=== PATIENT | female | born 1960 | race Caucasian/White ===

== ENCOUNTER 2020-08-02 10:06 | Outpatient (REF) | payer OTHER, SELFPAY ==
[2020-08-02 11:55] LABS: Hematocrit 43.1 % (37-47); Hemoglobin 13.8 g/dl (12.0-16.0); Mean Corpuscular Hemoglobin 28.6 pg (27.0-33.0); Mean Corpuscular Volume 89.4 fL (80-98); Platelet Count 263 X10*3/uL (160-400); Red Blood Count 4.82 X10*6/uL (4.20-5.50); Red Cell Distribution Width 11.9 % (11.0-16.0); White Blood Count 6.3 X10*3/uL (4.8-10.8)
[2020-08-02 12:09] LABS: Glucose Urine UA NEG (NEG); Leukocyte Esterase Urine NEG (NEG); Nitrite Urine NEG (NEG); PH 6.5 (5.0-8.0); Urine Blood TRACE (NEG); Urine Ketones NEG (NEG); Urine Protein NEG (NEG-TRACE)
[2020-08-02 12:23] LABS: Alanine Aminotransferase 29 U/L (0-31); Albumin Level 4.3 g/dL (3.5-5.0); Alkaline Phosphatase 74 U/L (39-117); Anion Gap 13 (12-20); Aspartate Amino Transferase 26 U/L (5-31); Bilirubin Total 0.6 mg/dL (0.0-1.0); Blood Urea Nitrogen 15 mg/dL (9-16); C Reactive Protein 0.24 mg/dL (< or = 0.50); Calcium 9.6 mg/dL (8.4-10.2); Carbon Dioxide 28 mmol/L (22-29); Chloride 102 mmol/L (96-108); Cholesterol 243 mg/dL; Estimated Glomerular Filt Rate > 60; Glucose Fasting 101 mg/dL (60-99); HDL Cholesterol 42 mg/dL; LDL Cholesterol Calculated 178 mg/dl; Potassium 4.3 mmol/L (3.3-5.1); Sodium 139 mmol/L (135-145); Total Protein 7.1 g/dL (6.5-8.0); Triglycerides 119 mg/dL
[2020-08-02 12:32] LABS: Appearance Urine CLEAR; Color Urine YELLOW
[2020-08-02 12:34] LABS: TSH reflex Free T4 0.02 uIU/mL (0.32-4.0); Vitamin D 25-OH Total 42.1 ng/mL (>30)
[2020-08-02 12:52] LABS: Folate 12.3 ng/mL (> or = 4.0); Vitamin B12 608 pg/mL (200-900)
[2020-08-02 13:17] LABS: Renal Epithelial Cells Urine 1+ /LPF; WBC Urine 0-2 /HPF (0-4)
[2020-08-02 13:30] LABS: Free T4 (Free Thyroxine) 1.36 ng/dL (0.71-1.85)
== END 2020-08-02 10:07 | disposition home or self-care (01) ==
LOC: HO.HMGCLDS 10:06
PROVIDERS: PCP Internal Medicine; Visit Provider Internal Medicine
DX: K59.00 Constipation, unspecified (principal); M54.2 Cervicalgia; G89.29 Other chronic pain; K21.9 Gastro-esophageal reflux disease without esophagitis; I10 Essential (primary) hypertension; M54.9 Dorsalgia, unspecified
CPT/HCPCS: 36415; 80053; 80061; 81001; 82306; 82607; 82746; 84439; 84443; 85027; 86140

== ENCOUNTER → 2020-12-08 08:24 | Outpatient (BNVA) | payer OTHER, SELFPAY | PROVIDERS: Visit Provider Orthopaedic Surgery | DX: M65.312 Trigger thumb, left thumb (principal); M65.331 Trigger finger, right middle finger | CPT/HCPCS: 20550; 99202; J1100 ==

== ENCOUNTER 2021-02-10 10:20 | Day surgery (SDC) | payer OTHER, SELFPAY ==
[2021-02-10 10:58] VITALS: BP 161/79; PULSE 70; RESP 16; TEMP 36.2; O2SAT 98; BMI 25.2
[2021-02-10 13:07] VITALS: BP 168/78; PULSE 66; RESP 16; TEMP 36.5; O2SAT 96
--- NOTE | 2021-02-10 13:34 | MHC.SHP ---
Pre-Procedural Eval Section A Date of Service: 02/10/21 The patient is an INPATIENT: No Changes since office visit: No Cold of Flu in the past 2 weeks, No New Medical Problems, No Changes in Medication and No Patient answered all questions The History & Physical has been completed within 30 days and I have reviewed it.: Yes Section B Chief Complaint: trigger thumb Allergies: Allergies Allergy/AdvReac Type Severity Reaction Status Date / Time No Known Allergies Allergy Verified 12/08/20 08:39 Plan I have reviewed the history and physical and performed a pertinent physical examination on my patient. No changes have occurred unless specified.
--- NOTE | 2021-02-10 13:34 | W.PM.OPN ---
Operative Note Operative Note Date of Service: 02/10/21 Narrative: Operative Note Preop diagnosis: 1. Left thumb Trigger finger Postop diagnosis: 1. Left thumb Trigger finger Procedure: 1. Left thumb A1 wesley release Surgeon: Claudia Reeves MD Anesthesia: local block using 1% lidocaine with epinephrine Findings: No locking or catching after A1 wesley release EBL: Less than 5 mL Tourniquet time: None Specimens: None Complications: None Disposition: Brought to recovery room in stable condition Plan: Follow-up for 7-10 days for wound check and suture removal Indications: The patient is 60 years old, with a left trigger thumb that has been unresponsive to nonoperative management. The risks and benefits of operative treatment including but not limited to risk of damage to blood vessels, nerves, tendons, infection, persistent pain, persistent symptoms, recurrence or possible need for additional surgery were discussed with the patient and the patient wishes to proceed with surgery. Procedure: Once consent was obtained a local block was performed in the preop area using a combination of 1% lidocaine with epinephrine. The patient was then brought back to the operating suite and placed on the operative table in supine position. A tourniquet was applied to the proximal aspect of the left upper extremity and the limb was prepped and draped in a standard surgical fashion. Once assured that we had a good block, a 1.5 cm oblique incision was made centered over the A1 wesley of the left thumb . The incision was made through the skin to the subcutaneous tissues using a #15 blade. Careful dissection was made down to the level of the A1 wesley using tenotomy scissors, with care being taken to protect the nearby neurovascular structures. A longitudinal incision was made in the A1 wesley 1st using a #15 blade, then using tenotomy scissors under direct visualization. The A1 wesley was noted to be thickened. Following our A1 wesley release, we no longer saw any locking or catching of the digit with flexion and extension. Once satisfied with our A1 wesley release the wound was copiously irrigated with normal saline and hemostasis was obtained with a brief period of local pressure. The skin edges were reapproximated with some 5.0 nylon suture material and a sterile dressing was applied. The patient appears to have tolerated the procedure well and with no complications. All digits were well vascularized at the conclusion of the case.
== END 2021-02-10 13:32 | disposition home or self-care (01) ==
PROVIDERS: PCP Internal Medicine; Visit Provider Orthopaedic Surgery
PROC: (CPT 26055; principal; 2021-02-10 13:00)
DX: M65.312 Trigger thumb, left thumb (principal); I10 Essential (primary) hypertension; M79.643 Pain in unspecified hand
CPT/HCPCS: 26055

== ENCOUNTER 2021-03-03 07:33 | Outpatient (REF) | payer OTHER, SELFPAY ==
[2021-03-03 11:41] LABS: Alanine Aminotransferase 34 U/L (0-31); Albumin Level 4.1 g/dL (3.5-5.0); Alkaline Phosphatase 87 U/L (39-117); Anion Gap 13 (12-20); Aspartate Amino Transferase 28 U/L (5-31); Bilirubin Total 0.7 mg/dL (0.0-1.0); Blood Urea Nitrogen 12 mg/dL (9-16); Calcium 9.4 mg/dL (8.4-10.2); Carbon Dioxide 25 mmol/L (22-29); Chloride 105 mmol/L (96-108); Cholesterol 255 mg/dL; Estimated Glomerular Filt Rate > 60; Glucose Fasting 93 mg/dL (60-99); HDL Cholesterol 43 mg/dL; LDL Cholesterol Calculated 187 mg/dl; Potassium 4.2 mmol/L (3.3-5.1); Sodium 139 mmol/L (135-145); Total Protein 6.8 g/dL (6.5-8.0); Triglycerides 126 mg/dL
[2021-03-03 12:06] LABS: TSH reflex Free T4 1.91 uIU/mL (0.32-4.0)
[2021-03-06 04:06] LABS: Triiodothyronine T3 Free 2.8 pg/mL (2.3-4.2)
== END 2021-03-03 07:34 | disposition home or self-care (01) ==
LOC: HO.HMGCLDS 07:33
PROVIDERS: PCP Internal Medicine; Visit Provider Internal Medicine
DX: E78.5 Hyperlipidemia, unspecified (principal); E05.90 Thyrotoxicosis, unspecified without thyrotoxic crisis or storm; I10 Essential (primary) hypertension
CPT/HCPCS: 36415; 80053; 80061; 84443; 84481

== ENCOUNTER → 2021-03-09 08:13 | Outpatient (REF) | payer OTHER, SELFPAY ==
--- NOTE | 2021-03-09 08:16 | CA_ITS ---
Acquisition Time: 2021-03-09 08:20:25 Total Exercise Time: 00:06:49 Test Indications: Chest Pain Medications: SEE CHART Protocol: RAVINDER Max HR: 153 BPM 96% of Pred: 158 BPM Max BP: 158/078 mmHG Max Work Load: 8.2 METS Exercise stress test with exercise 6 min 49 sec of Ravinder protocol, with report of 5/10 left lateral chest discomfort at baseline which increased to 6-7/10 with exercise, with development of 5/10 mid chest discomfort with exercise that is worse with deep inspiration, without arrythmia, with normotensive response to exercise, without EKG changes meeting criteria for ischemia. In recovery she had improvement in both types of chest discomfort. Left lateral discomfort improved to 3/10. Kazakh bar host used during test. Test reviewed with Dr Malone Msg sent to Dr Olivas with recommendation for stress echo if still concern for ischemia. Referred By: Yeimi Olivas Overread By: JUAN M WAGGONER
== END ==
LOC: HO.CARD 08:13
PROVIDERS: PCP Internal Medicine; Visit Provider Internal Medicine
DX: R07.9 Chest pain, unspecified (principal); E78.5 Hyperlipidemia, unspecified; E05.90 Thyrotoxicosis, unspecified without thyrotoxic crisis or storm
CPT/HCPCS: 93017

== ENCOUNTER 2021-08-17 11:21 | Outpatient (REF) | payer OTHER, SELFPAY ==
--- NOTE | ~2021-08-17 | US_ITS ---
EXAMINATION: US THYROID CLINICAL INFORMATION: Thyrotoxicosis, unspecified without thyrotoxic crisis or storm. COMPARISON: None TECHNIQUE: Linear transducer grayscale and color Doppler examination with attention to the region of the thyroid. FINDINGS: SIZE: Measurements of the thyroid lobes and nodules are given in sagittal, anteroposterior and transverse dimensions respectively. Right Thyroid Lobe: 6.0 x 1.8 x 1.5 cm, volume 8.5 mL. Parenchyma: The gland echotexture is homogeneous. Thyroid vascularity is normal. Left Thyroid Lobe: 6.0 x 1.5 x 1.6 cm, volume 7.5 mL. Parenchyma: The gland echotexture is homogeneous. Thyroid vascularity is normal. Isthmus: 0.5 cm in maximum AP dimension. No focal thyroid nodule is seen. NODES: No lymphadenopathy is seen in the tissue surrounding the thyroid gland. US/US thyroid IMPRESSION: No thyroid nodules identified. Normal-appearing thyroid gland without enlargement, heterogeneity, or hypervascularity.
--- NOTE | ~2021-08-17 | US_ITS ---
EXAMINATION: US ABDOMEN COMPLETE CLINICAL INFORMATION: Abdominal pain. Rule out nephrolithiasis. COMPARISON: None TECHNIQUE: Real-time imaging of the abdominal viscera. FINDINGS: PANCREAS: Normal. ABDOMINAL AORTA: The proximal, mid, and distal segments are normal in caliber. INFERIOR VENA CAVA: Visualized portions are normal. LIVER: Liver echotexture is slightly increased. The liver is normal in size. The liver contour is normal. . No focal hepatic lesion. There is no intrahepatic biliary duct dilatation seen. GALLBLADDER: Normal. The gallbladder is physiologically distended without evidence of stones, sludge, polyps, wall thickening or pericholecystic fluid. COMMON BILE DUCT: Normal in caliber measuring 0.5 cm in diameter. RIGHT KIDNEY: Normal. No hydronephrosis. No renal calculi or focal parenchymal lesions. The kidney measures 10.2 cm in maximum dimension. LEFT KIDNEY: Normal. No hydronephrosis. No renal calculi or focal parenchymal lesions. The kidney measures 9.6 cm in maximum dimension. SPLEEN: Normal. The spleen measures 7.0 cm in maximum dimension. FREE FLUID: None. US/US abdomen complete IMPRESSION: Slightly echogenic liver probably representing mild fatty infiltration. Normal-appearing kidneys. No renal stone seen.
== END 2021-08-17 11:22 | disposition home or self-care (01) ==
LOC: HO.HMGCX 11:21
PROVIDERS: Visit Provider Internal Medicine
DX: E05.90 Thyrotoxicosis, unspecified without thyrotoxic crisis or storm (principal); R10.9 Unspecified abdominal pain; E78.5 Hyperlipidemia, unspecified
CPT/HCPCS: 76536; 76700

== ENCOUNTER 2021-08-18 08:35 | Outpatient (REF) | payer OTHER, SELFPAY ==
[2021-08-18 11:28] LABS: Hematocrit 41.1 % (37.0-47.0); Hemoglobin 13.4 g/dl (12.0-16.0); Mean Corpuscular HGB Conc 32.6 g/dl (31.0-35.0); Mean Corpuscular Hemoglobin 29.1 pg (27.0-33.0); Mean Corpuscular Volume 89.3 fL (80.0-98.0); Mean Platelet Volume 10.1 fL (9.4-12.3); Platelet Count 257 X10*3/uL (160-400); Red Cell Distribution Width 12.5 % (11.0-16.0); White Blood Count 6.1 X10*3/uL (4.8-10.8)
[2021-08-18 11:42] LABS: Alanine Aminotransferase 34 U/L (0-31); Alkaline Phosphatase 82 U/L (39-117); Anion Gap 12 (12-20); Aspartate Amino Transferase 29 U/L (5-31); Bilirubin Total 0.8 mg/dL (0.0-1.0); Blood Urea Nitrogen 14 mg/dL (9-16); Calcium 9.3 mg/dL (8.4-10.2); Carbon Dioxide 26 mmol/L (22-29); Chloride 104 mmol/L (96-108); Cholesterol 249 mg/dL; Estimated Glomerular Filt Rate > 60; Glucose Fasting 93 mg/dL (60-99); HDL Cholesterol 48 mg/dL; LDL Cholesterol Calculated 177 mg/dl; Potassium 4.4 mmol/L (3.3-5.1); Sodium 138 mmol/L (135-145); Total Protein 6.8 g/dL (6.5-8.0); Triglycerides 122 mg/dL
[2021-08-18 12:01] LABS: Estimated Average Glucose 126 mg/dL; Hemoglobin A1C 157.0973 umol/L
[2021-08-18 12:10] LABS: Erythrocyte Sedimentation Rate 11 MM/HR (0-20)
== END 2021-08-18 08:36 | disposition home or self-care (01) ==
LOC: HO.HMGCLDS 08:35
PROVIDERS: Visit Provider Internal Medicine
DX: E05.90 Thyrotoxicosis, unspecified without thyrotoxic crisis or storm (principal); E78.5 Hyperlipidemia, unspecified; I10 Essential (primary) hypertension; M79.10 Myalgia, unspecified site
CPT/HCPCS: 36415; 80053; 80061; 83036; 85027; 85652

== ENCOUNTER 2022-04-25 07:57 | Outpatient (REF) | payer OTHER, SELFPAY ==
[2022-04-25 11:41] LABS: Appearance Urine Cloudy; Color Urine Yellow; Glucose Urine UA Negative (Negative); Leukocyte Esterase Urine Moderate (2+) (Negative); Nitrite Urine Negative (Negative); UMIC TRIGGER UA YES; Urine Blood Trace (Negative); Urine Ketones Negative (Negative); Urine Protein Negative (Neg-Trace)
[2022-04-25 11:48] LABS: Bacteria Urine 4+ (None Seen); Hyaline Casts Urine 0-2 /LPF (0-2); RBC Urine 0-2 /HPF (0-2); Squamous Epithelial Cell Urine 0-2 /HPF (0-2); WBC Urine 21-50 /HPF (0-5)
[2022-04-25 11:51] LABS: MANUAL DIFF FLAG NO
[2022-04-25 11:56] LABS: Basophils Absolute Auto 0.1 X10*3/uL (0.0-0.2); Basophils Percent Auto 0.7 % (0-2); Eosinophils Absolute Auto 0.7 X10*3/uL (0.0-0.4); Eosinophils Percent Auto 8.9 % (0-4); Hematocrit 41.7 % (37.0-47.0); Hemoglobin 13.8 g/dl (12.0-16.0); Imm Gran Abs Auto 0.01 X10*3/uL (0.00-0.03); Imm Gran Pct Auto 0.1 % (0.0-0.4); Lymphocytes Percent Auto 39.1 % (20-40); Mean Corpuscular HGB Conc 33.1 g/dl (31.0-35.0); Mean Corpuscular Hemoglobin 29.1 pg (27.0-33.0); Mean Corpuscular Volume 87.8 fL (80.0-98.0); Mean Platelet Volume 9.9 fL (9.4-12.3); Monocytes Absolute Auto 0.7 X10*3/uL (0.1-1.2); Monocytes Percent Auto 9.7 % (2-11); Neutrophils Absolute Auto 3.1 x10*3/uL (2.0-8.3); Neutrophils Percent Auto 41.5 % (45-73); Platelet Count 272 X10*3/uL (160-400); Red Blood Count 4.75 X10*6/uL (4.20-5.50); Red Cell Distribution Width 12.1 % (11.0-16.0); White Blood Count 7.5 X10*3/uL (4.8-10.8)
[2022-04-25 12:29] LABS: Alanine Aminotransferase 25 U/L (0-31); Albumin Level 4.2 g/dL (3.5-5.0); Alkaline Phosphatase 74 U/L (39-117); Anion Gap 13 (12-20); Aspartate Amino Transferase 26 U/L (5-31); Bilirubin Total 0.6 mg/dL (0.0-1.0); Blood Urea Nitrogen 9 mg/dL (9-16); Calcium 9.3 mg/dL (8.4-10.2); Carbon Dioxide 28 mmol/L (22-29); Chloride 101 mmol/L (96-108); Cholesterol 270 mg/dL; Estimated Glomerular Filt Rate > 60; Glucose Fasting 99 mg/dL (60-99); HDL Cholesterol 53 mg/dL; LDL Cholesterol Calculated 201 mg/dl; Potassium 3.9 mmol/L (3.3-5.1); Sodium 138 mmol/L (135-145); Total Protein 7.1 g/dL (6.5-8.0); Triglycerides 83 mg/dL
[2022-04-25 13:38] LABS: TSH reflex Free T4 2.13 uIU/mL (0.32-4.0); Vitamin D 25-OH Total 42.5 ng/mL (>30)
== END 2022-04-25 07:58 | disposition home or self-care (01) ==
LOC: HO.HMGCLDS 07:57
PROVIDERS: PCP Internal Medicine; Visit Provider Internal Medicine
DX: Z00.00 Encounter for general adult medical examination without abnormal findings (principal); I10 Essential (primary) hypertension; E05.90 Thyrotoxicosis, unspecified without thyrotoxic crisis or storm; E78.5 Hyperlipidemia, unspecified
CPT/HCPCS: 36415; 80053; 80061; 81001; 82306; 84443; 85025; 87086; 87088; 87186

== ENCOUNTER 2022-04-26 14:53 | Outpatient (REF) | payer OTHER, SELFPAY ==
--- NOTE | ~2022-04-26 | US_ITS ---
EXAMINATION: US EXTRACRANIAL CAROTID DUPLEX, BILATERAL CLINICAL INFORMATION: TIA. COMPARISON: None TECHNIQUE: Real-time ultrasound and Doppler techniques (integrating B-mode 2-D vascular images, Doppler spectral analysis and color-flow Doppler imaging) were utilized to interrogate the extracranial carotid arteries, the vertebral arteries and proximal subclavian arteries bilaterally. The degree of stenosis is determined by criteria similar to NASCET. FINDINGS: Minimal to mild echogenic atherosclerotic plaque in the carotid bulb bilaterally. Color Doppler interrogation demonstrated normal arterial waveforms with brisk systolic upstrokes. No tardus parvus waveform was identified. Arterial velocities were as follows in cm/s: RIGHT: Proximal CCA: 85 Distal CCA: 97 Proximal ICA: 66 Mid ICA: 63 Distal ICA: 110 ECA: 91 LEFT: Proximal CCA: 118 Distal CCA: 103 Proximal ICA: 51 Mid ICA: 89 Distal ICA: 80 ECA: 86 The vertebral arteries demonstrated normal arterial waveforms and direction of flow. US/US carotid duplex BI IMPRESSION: No hemodynamically significant arterial stenosis bilaterally.
== END 2022-04-26 14:54 | disposition home or self-care (01) ==
LOC: HO.US 14:53
PROVIDERS: PCP Internal Medicine; Visit Provider Internal Medicine
DX: G45.9 Transient cerebral ischemic attack, unspecified (principal)
CPT/HCPCS: 93880

== ENCOUNTER 2022-05-01 11:25 | Outpatient (REF) | payer OTHER, SELFPAY ==
--- NOTE | ~2022-05-01 | XR_ITS ---
EXAMINATION: XR CERVICAL SPINE CLINICAL INFORMATION: Neck pain. COMPARISON: None TECHNIQUE: 3 views of the cervical spine were obtained. FINDINGS: There is maintained cervical lordosis. There is loss of C5-C6, C6-C7 disc heights with mild ventral spondylosis. Rest of the disc heights are normal. No acute compression fracture, lytic or sclerotic process seen. There is moderate right C3-C4 facet joint arthropathy and hypertrophy. The prevertebral soft tissues are normal. XR/XR cervical spine 2V IMPRESSION: Degenerative disc changes C5-C6 and C6-C7 disc levels with mild ventral spondylosis. No visible acute fracture or dislocation seen. Moderate right C3-C4 facet joint arthropathy and hypertrophy.
== END 2022-05-01 11:26 | disposition home or self-care (01) ==
LOC: HO.HMGCX 11:25
PROVIDERS: PCP Internal Medicine; Visit Provider Internal Medicine
DX: M54.2 Cervicalgia (principal)
CPT/HCPCS: 72040

== ENCOUNTER 2022-05-05 08:03 | Outpatient (REF) | payer OTHER, SELFPAY ==
--- NOTE | ~2022-05-05 | CT_ITS ---
EXAMINATION: CT HEAD WITHOUT CONTRAST CLINICAL INFORMATION: Transient cerebral ischemic attack. COMPARISON: None available. TECHNIQUE: Contiguous axial imaging was performed from the skull base to vertex without intravenous administration of contrast. This CT examination was performed using dose optimization techniques as appropriate, variously including the following: *Automated exposure control. *Adjustment of mA and/or kV according to patient size (this includes techniques or standardized protocols for targeted exams where dose is matched to indication/reason for exam; i.e. extremities or head). *Use of iterative reconstruction technique. DLP: 715 mGy-cm FINDINGS: There is no evidence of acute intracranial hemorrhage or edematous territorial infarction. Gerard-white matter differentiation is preserved. A few foci of hypoattenuation in the periventricular and deep white matter are consistent with mild microangiopathy. The ventricles are normal in morphology and size. No evidence for obstructive hydrocephalus. No abnormal mass effect or midline shift. No extra-axial fluid collections. No acute soft tissue or osseous abnormalities. Moderate degenerative arthropathy of the atlantodental articulation. Mild mucosal thickening of the paranasal sinuses. Moderate rightward nasal septal deviation. Periapical lucencies associated with the maxillary right canine and left 1st molar. The mastoid air cells and middle ear cavities are clear. CT/CT head/brain wo IV con IMPRESSION: 1. No evidence of acute intracranial hemorrhage or edematous territorial infarction. 2. Mild underlying microangiopathy.
== END 2022-05-05 08:04 | disposition home or self-care (01) ==
LOC: HO.CT 08:03
PROVIDERS: Visit Provider Internal Medicine
DX: Z86.73 Personal history of transient ischemic attack (TIA), and cerebral infarction without residual deficits (principal)
CPT/HCPCS: 70450

== ENCOUNTER 2022-05-16 08:27 | Outpatient (REF) | payer OTHER, SELFPAY ==
[2022-05-16 11:30] LABS: Appearance Urine Clear; Color Urine Yellow; Glucose Urine UA Negative (Negative); Leukocyte Esterase Urine Trace (Negative); Nitrite Urine Negative (Negative); PH 5.5 (5.0-9.0); UMIC TRIGGER UA YES; Urine Blood Negative (Negative); Urine Ketones Negative (Negative); Urine Protein Negative (Neg-Trace)
[2022-05-16 11:37] LABS: Bacteria Urine None Seen (None Seen); Hyaline Casts Urine 0-2 /LPF (0-2); RBC Urine 0-2 /HPF (0-2); Squamous Epithelial Cell Urine 0-2 /HPF (0-2); WBC Urine 0-5 /HPF (0-5)
== END 2022-05-16 08:28 | disposition home or self-care (01) ==
LOC: HO.HMGCLDS 08:27
PROVIDERS: PCP Internal Medicine; Visit Provider Internal Medicine
DX: R31.9 Hematuria, unspecified (principal)
CPT/HCPCS: 81001

== ENCOUNTER 2022-09-08 13:23 | Outpatient (REF) | payer OTHER, SELFPAY ==
[2022-09-08 14:15] LABS: MANUAL DIFF FLAG NO
[2022-09-08 14:21] LABS: Basophils Absolute Auto 0.1 X10*3/uL (0.0-0.2); Basophils Percent Auto 0.7 % (0-2); Eosinophils Absolute Auto 0.5 X10*3/uL (0.0-0.4); Eosinophils Percent Auto 7.4 % (0-4); Hematocrit 40.7 % (37.0-47.0); Hemoglobin 13.6 g/dl (12.0-16.0); Imm Gran Abs Auto 0.01 X10*3/uL (0.00-0.03); Imm Gran Pct Auto 0.1 % (0.0-0.4); Lymphocytes Absolute Auto 3.3 X10*3/uL (1.2-4.9); Mean Corpuscular HGB Conc 33.4 g/dl (31.0-35.0); Mean Corpuscular Hemoglobin 29.2 pg (27.0-33.0); Mean Corpuscular Volume 87.5 fL (80.0-98.0); Mean Platelet Volume 9.6 fL (9.4-12.3); Monocytes Absolute Auto 0.5 X10*3/uL (0.1-1.2); Monocytes Percent Auto 6.7 % (2-11); Neutrophils Absolute Auto 2.8 x10*3/uL (2.0-8.3); Neutrophils Percent Auto 39.1 % (45-73); Platelet Count 261 X10*3/uL (160-400); Red Blood Count 4.65 X10*6/uL (4.20-5.50); Red Cell Distribution Width 11.9 % (11.0-16.0); White Blood Count 7.2 X10*3/uL (4.8-10.8)
[2022-09-08 14:54] LABS: Alanine Aminotransferase 20 U/L (0-31); Albumin Level 4.1 g/dL (3.5-5.0); Alkaline Phosphatase 71 U/L (39-117); Anion Gap 11 (12-20); Aspartate Amino Transferase 16 U/L (5-31); Bilirubin Total 0.5 mg/dL (0.0-1.0); Blood Urea Nitrogen 11 mg/dL (9-16); C Reactive Protein 0.19 mg/dL (< or = 0.50); Calcium 9.2 mg/dL (8.4-10.2); Carbon Dioxide 27 mmol/L (22-29); Chloride 102 mmol/L (96-108); Estimated Glomerular Filt Rate > 60; Glucose Random 89 mg/dL (60-115); Sodium 136 mmol/L (135-145); Total Protein 6.8 g/dL (6.5-8.0)
== END 2022-09-08 13:24 | disposition home or self-care (01) ==
LOC: HO.HMGCLDS 13:23
PROVIDERS: PCP Internal Medicine; Visit Provider Internal Medicine
DX: R10.9 Unspecified abdominal pain (principal)
CPT/HCPCS: 36415; 80053; 85025; 86140

== ENCOUNTER → 2022-10-16 09:18 | Outpatient (BNVA) | payer OTHER, SELFPAY | PROVIDERS: PCP Internal Medicine; Visit Provider Nurse Practitioner Family | DX: Z12.11 Encounter for screening for malignant neoplasm of colon (principal); K21.9 Gastro-esophageal reflux disease without esophagitis | CPT/HCPCS: 99202 ==

== ENCOUNTER 2022-10-18 10:44 | Outpatient (REF) | payer OTHER, SELFPAY | END 2022-10-18 10:45 | disposition home or self-care (01) | LOC: HO.HMGCLNP 10:44 | PROVIDERS: PCP Internal Medicine; Visit Provider Nurse Practitioner Family | DX: K21.9 Gastro-esophageal reflux disease without esophagitis (principal) | CPT/HCPCS: 87338 ==

== ENCOUNTER 2022-10-30 11:19 | Outpatient (REF) | payer OTHER, SELFPAY ==
--- NOTE | ~2022-10-30 | US_ITS ---
EXAMINATION: US THYROID CLINICAL INFORMATION: Nontoxic goiter, unspecified. COMPARISON: Ultrasound soft tissue head/neck thyroid dated 08/17/2021. TECHNIQUE: Linear transducer grayscale and color Doppler examination with attention to the region of the thyroid. FINDINGS: SIZE: Measurements of the thyroid lobes and nodules are given in sagittal, anteroposterior and transverse dimensions respectively. Right Thyroid Lobe: 4.6 x 1.7 x 1.6 cm, volume 6.5 mL. Previously 6.0 x 1.8 x 1.5 cm, volume 8.5 mL. Parenchyma: The gland echotexture is homogeneous. Thyroid vascularity is normal. Left Thyroid Lobe: 5.5 x 1.9 x 1.6 cm, volume 8.7 mL. Previously 6.0 x 1.5 x 1.6 cm, volume 7.5 mL. Parenchyma: The gland echotexture is homogeneous. Thyroid vascularity is normal. Isthmus: 0.5 cm in maximum AP dimension. Previously 0.5 cm. No focal thyroid nodule is seen. NODES: No lymphadenopathy is seen in the tissue surrounding the thyroid gland. US/US thyroid IMPRESSION: Normal thyroid gland size with no focal nodules seen. No major change compared to previous study 08/14/2021 ACR TI-RADS RECOMMENDATION REFERENCE: Ultrasound-guided fine-needle aspiration, followup ultrasound, no further follow up. * TR1 (0 point) and TR2 (2 points): No FNA or follow up * TR3 (3 points): FNA if more than or equal to 2.5 cm in maximum dimension, followup ultrasound in 1, 3 and 5 years if 1.5 to 2.4 cm in maximum dimension. * TR4 (4-6 points): FNA if more than or equal to 1.5 cm in maximum dimension, followup ultrasound in 1, 2, 3 and 5 years if 1 to 1.4 cm in maximum dimension. * TR5 (more than or equal to 7 points): FNA if more than or equal to 1 cm in maximum dimension, followup ultrasound every year for 5 years if 0.5 to 0.9 cm in maximum dimension. * TR3, TR4 or TR5 nodules that are below the size threshold for follow up receive no follow up.
== END 2022-10-30 11:20 | disposition home or self-care (01) ==
LOC: HO.US 11:19
PROVIDERS: PCP Internal Medicine; Visit Provider Internal Medicine
DX: E04.9 Nontoxic goiter, unspecified (principal)
CPT/HCPCS: 76536

== ENCOUNTER 2023-02-08 08:29 | Outpatient (AMB) | payer OTHER, SELFPAY ==
[2023-02-08 08:32] VITALS: BP 136/78; PULSE 75; O2SAT 98; BMI 24.9
--- NOTE | 2023-02-08 08:32 | A.OFFPC_ITS ---
Vital Signs 02/08/23 08:32 Height 5 ft 2 in Weight 136 lb BMI 24.9 BP 136/78 Blood Pressure Location Lt brachial Position Sitting Pulse 75 Pulse Source Pulse Oximeter Pulse Oximetry (%) 98 Oxygen Delivery Method Room Air Intake Visit Reasons: Follow up after abnormal thyroid blood test Allergies No Known Allergies Allergy (Verified 02/08/23 08:32) Tobacco use date assessed: 02/08/23 Fall risk assessment: No Falls in past year Last assessed Fall Risk: 02/08/23 Dental Screening Dental Screen Date: 02/08/23 Did you have a dental visit in the last 12 months?: Yes Did you have a dental problem in the last 6 months where you did not have access to dental care?: No Was dental information given to patient?: Patient has dentist HPI Follow up after abnormal thyroid blood test HPI Details Patient presents for the follow-up. She had a blood work done in [place] last month and was found to have suppressed TSH level and elevated 3 T4 level consistent with hyperthyroidism. Patient complains of pruritus for last few weeks. She denies any rash, palpitations, weight loss, chest pain or shortness of breath. [facility] Medical History Abdominal pain Back pain Chest pain Chronic neck pain Constipation GERD (gastroesophageal reflux disease) Hand pain HTN (hypertension) Hyperlipidemia Mammogram normal Mid-back pain, acute Myalgia Vertigo Surgical History H/O colonoscopy History of esophagogastroduodenoscopy (EGD) No pertinent past surgical history Family History Father Cancer Mother Stroke Sister No problems noted. Sister No problems noted. Son No problems noted. Daughter No problems noted. Social History Housing: Apartment Patient Tobacco Use Status: Never used Tobacco e-Cigarette/Vaping Use: Never Used Current occupational status: unemployed Current occupation: rt hand Cognitive needs: No Hearing needs: No Vision needs: No Questionnaire PHQ-9 Over the last 2 weeks, how often have you been bothered by any of the following problems? 1. Little interest or pleasure in doing things: not at all 2. Feeling down, depressed, or hopeless: not at all 3. Trouble falling or staying asleep, or sleeping too much: not at all 4. Feeling tired or having little energy: not at all 5. Poor appetite or overeating: not at all 6. Feeling bad about yourself - or that you are a failure or have let yourself or your family down: not at all 7. Trouble concentrating on things, such as reading the newspaper or watching television: not at all 8. Moving or speaking so slowly that other people could have noticed. Or the opposite - being so fidgety or restless that you have been moving around a lot more than usual: not at all 9. Thoughts that you would be better off or of hurting yourself in some way: not at all Total score: 0 Depression Screening Interpretation: Negative Source: Developed by Drs. Ilia Reece, Kimberly Almodovar, Mack Hdz and colleagues, with an educational odette from [employer]. Thrive Questionnaire Date Thrive assessed: 02/08/23 I am a: Patient What is your living situation today?: I have a steady place to live Within the past 12 months, did the food you bought not last and you didn't have the money to get more?: Never true Within the past 12 months, did you worry whether your food would run out before you got money to buy more?: Never true Do you have trouble paying for medicines?: No Do you have trouble getting transportation to medical appointments?: No Do you have trouble paying your heating and electricity bill?: No Do you have trouble taking care of your child, family member or friend?: No Do you have trouble with day-to-day activities such as bathing, preparing meals, shopping, managing finances, etc.?: No Are you currently unemployed and looking for a job?: No Are you interested in more education?: No Please select the resources that you would like help with: None Currently or been in a relationship where the following occur: no concerns reported AUDIT C Alcohol Use Questionnaire (AUDIT-C) 1. How often do you have a drink containing alcohol?: Never 3. How often do you have six or more drinks on one occasion?: Never Total Score: 0 SHAWN-7 AMB Questionnaire SHAWN-7 Date SHAWN - 7 assessed: 02/08/23 Feeling nervous, anxious, or on edge: 0 = Not at all Not being able to stop or control worryin = Not at all Worrying too much about different things: 0 = Not at all Trouble relaxin = Not at all Being so restless that it is hard to sit still: 0 = Not at all Becoming easily annoyed or irritable: 0 = Not at all Feeling afraid as if something awful might happen: 0 = Not at all Total SHAWN-7 score (0-4 normal; 5-9 mild; 10-14 moderate; 15-21 severe): 0 Source: Developed by Drs. Ilia Reece, Kimberly Almodovar, Mack Hdz and colleagues, with an educational odette from [employer]. Review of Systems Const All systems reviewed & are unremarkable except as noted in HPI and below Reports no additional complaints Eyes Reports no additional complaints ENT Reports no additional complaints Card Reports no additional complaints Resp Reports no additional complaints GI Reports no additional complaints Reports no additional complaints Physical exam (Primary Care) Vital Signs: Last Vital Signs Pulse 75 02/08/23 08:32 BP 136/78 02/08/23 08:32 Pulse Ox 98 02/08/23 08:32 Oxygen Delivery Method Room Air 02/08/23 08:32 BMI result Body Mass Index 24.9 Tobacco/Smoking Status: Tobacco use Status Tobacco use date assessed 02/08/23 02/08/23 08:36 Patient Tobacco Use Status Never used Tobacco 02/08/23 08:36 e-Cigarette/Vaping Use Never Used 02/08/23 08:36 PHQ-9: PHQ-9 Score PHQ-9: Total score 0 02/08/23 08:42 Depression Screening Interpretation: Negative Thrive Assessment: Date of Thrive Assessment Date Thrive assessed 02/08/23 02/08/23 08:42 Currently or been in a relationship where the following occur: no concerns reported Const General: no acute distress HENMT Head: Yes normal to inspection General nose exam: Normal external nose present Eyes General: appearance normal, both eyes and all related structures Resp Effort & Inspection: normal respiratory effort Auscultation: clear to auscultation bilaterally Cardio Rhythm: regular rhythm Heart sounds: S1 normal heart sound present and S2 normal heart sound present GI Inspection: Yes normal to inspection Palpation (GI): Soft to palpation Percussion: Yes normal to percussion Auscultation: normal bowel sounds Assessment and Plan Assessment & Plan (1) Pruritus: Code(s): L29.9 - Pruritus, unspecified Plan: Check blood work (2) Hyperthyroidism: Code(s): E05.90 - Thyrotoxicosis, unspecified without thyrotoxic crisis or storm Plan: Check thyroid function tests if abnormal patient will be referred to Endocrinology Orders: Orders Comprehensive [place]. Panel Fast Today L29.9 - Pruritus, unspecified Triiodothyronine T3 Free Today L29.9 - Pruritus, unspecified TSH reflex Free T4 Today L29.9 - Pruritus, unspecified Thyroid Peroxidase Antibodies Today L29.9 - Pruritus, unspecified Medications: Discontinued gabapentin Discontinued Reason: Doctor's Order 200 mg (2 x 100 mg) PO BEDTIME 60 caps 1RF losartan Discontinued Reason: Doctor's Order 100 mg PO DAILY 90 tabs 1RF Coding Level of Care Code Est Pt Level 3 (64413) Diagnoses Pruritus L29.9 Hyperthyroidism E05.90
== END 2023-02-08 09:33 | disposition home or self-care (01) ==
PROVIDERS: PCP Internal Medicine; Visit Provider Internal Medicine
DX: L29.9 Pruritus, unspecified (principal); E05.90 Thyrotoxicosis, unspecified without thyrotoxic crisis or storm
CPT/HCPCS: 99213

== ENCOUNTER 2023-02-08 09:01 | Outpatient (REF) | payer OTHER, SELFPAY ==
[2023-02-08 12:00] LABS: Alanine Aminotransferase 92 U/L (0-31); Albumin Level 3.9 g/dL (3.5-5.0); Alkaline Phosphatase 93 U/L (39-117); Anion Gap 12 (12-20); Aspartate Amino Transferase 39 U/L (5-31); Bilirubin Total 0.3 mg/dL (0.0-1.0); Blood Urea Nitrogen 12 mg/dL (9-16); Calcium 9.7 mg/dL (8.4-10.2); Carbon Dioxide 26 mmol/L (22-29); Chloride 106 mmol/L (96-108); Estimated Glomerular Filt Rate > 60; Glucose Fasting 103 mg/dL (60-99); Potassium 4.1 mmol/L (3.3-5.1); Sodium 140 mmol/L (135-145); Total Protein 7.2 g/dL (6.5-8.0)
[2023-02-08 12:20] LABS: TSH reflex Free T4 < 0.01 uIU/mL (0.32-4.0)
[2023-02-08 12:53] LABS: Free T4 (Free Thyroxine) 1.17 ng/dL (0.71-1.85)
[2023-02-09 06:49] LABS: Triiodothyronine T3 Free 4.8 pg/mL (2.3-4.2)
[2023-02-09 12:32] LABS: Thyroid Peroxidase Antibodies 1 IU/mL (<9)
== END 2023-02-08 09:02 | disposition home or self-care (01) ==
LOC: HO.HMGCLDS 09:01
PROVIDERS: PCP Internal Medicine; Visit Provider Internal Medicine
DX: L29.9 Pruritus, unspecified (principal)
CPT/HCPCS: 36415; 80053; 84439; 84443; 84481; 86376

== ENCOUNTER 2023-02-28 10:54 | Outpatient (REF) | payer OTHER, SELFPAY ==
--- NOTE | ~2023-02-28 | US_ITS ---
EXAMINATION: US ABDOMEN COMPLETE CLINICAL INFORMATION: Abdominal pain. Abnormal findings of blood chemistry (elevated LFTs).. COMPARISON: Abdomen ultrasound from 08/17/2021 TECHNIQUE: Real-time imaging of the abdominal viscera. FINDINGS: PANCREAS: Normal. ABDOMINAL AORTA: The proximal, mid, and distal segments are normal in caliber. INFERIOR VENA CAVA: Visualized portions are normal. LIVER: Liver has normal size and contour. Liver remains diffusely hyperechoic, as seen on 08/17/2021. No focal liver lesion or intrahepatic ductal dilatation. GALLBLADDER: Normal. The gallbladder is physiologically distended without evidence of stones, sludge, polyps, wall thickening or pericholecystic fluid. COMMON BILE DUCT: Normal in caliber measuring 0.6 cm in diameter. KIDNEYS: Kidneys have normal size, cortical thickness and cortical echotexture. Each kidney is approximately 9 cm in length. No focal parenchymal lesion, nephrolithiasis or hydronephrosis.. SPLEEN: Normal. The spleen measures 8.7 cm in maximum dimension. FREE FLUID: None. US/US abdomen complete IMPRESSION: * No acute sonographic abnormalities within the abdomen. * No evidence of cholelithiasis, cholecystitis or biliary tract obstruction. * Liver is diffusely hyperechoic, suggestive of steatosis, and not appreciably changed compared to 08/17/2021.
== END 2023-02-28 10:55 | disposition home or self-care (01) ==
LOC: HO.HMGCX 10:54
PROVIDERS: PCP Internal Medicine; Visit Provider Internal Medicine
DX: R79.89 Other specified abnormal findings of blood chemistry (principal); R10.9 Unspecified abdominal pain
CPT/HCPCS: 76700

== ENCOUNTER 2023-03-14 07:30 | Outpatient (REF) | payer OTHER, SELFPAY ==
[2023-03-14 12:02] LABS: Appearance Urine Clear; Color Urine Yellow; Glucose Urine UA Negative (Negative); Leukocyte Esterase Urine Negative (Negative); Nitrite Urine Negative (Negative); PH 5.5 (5.0-9.0); Urine Blood Negative (Negative); Urine Ketones Negative (Negative); Urine Protein Negative (Neg-Trace)
[2023-03-14 12:56] LABS: Alanine Aminotransferase 23 U/L (0-31); Albumin Level 4.2 g/dL (3.5-5.0); Alkaline Phosphatase 73 U/L (39-117); Aspartate Amino Transferase 21 U/L (5-31); Bilirubin Direct 0.2 mg/dL (0.0-0.5); Bilirubin Total 0.6 mg/dL (0.0-1.0); C Reactive Protein 0.24 mg/dL (< or = 0.50); Total Protein 7.2 g/dL (6.5-8.0)
[2023-03-14 13:18] LABS: TSH reflex Free T4 0.03 uIU/mL (0.32-4.0); Vitamin D 25-OH Total 75.9 ng/mL (>30)
[2023-03-14 14:16] LABS: Free T4 (Free Thyroxine) 0.92 ng/dL (0.71-1.85)
[2023-03-15 07:03] LABS: Triiodothyronine T3 Free 3.3 pg/mL (2.3-4.2)
[2023-03-15 08:56] LABS: HBS Num1 8.39 mIU/mL (0-7.99); HBc Num1 0.14 S/CO (0.00-0.79); HBsAGNum1 0.28 S/CO (0.00-0.99); Hepatitis A Antibody IgM 0.13 Index (0-0.79); Hepatitis B Core Antibody Nonreactive (Nonreactive); Hepatitis B Surface Antigen Negative (Negative); ~HepC Num1 0.06 S/CO (0.00-0.79); ~Hepatitis A Antibody IgM Nonreactive (Nonreactive); ~Hepatitis C Antibody Nonreactive (Nonreactive)
[2023-03-15 11:44] LABS: HBS Num2 9.28 mIU/mL (0-7.99); ~Hepatitis B Surface Antibody GRAYZONE (Nonreactive)
== END 2023-03-14 07:31 | disposition home or self-care (01) ==
LOC: HO.HMGCLDS 07:30
PROVIDERS: PCP Internal Medicine; Visit Provider Internal Medicine
DX: E05.90 Thyrotoxicosis, unspecified without thyrotoxic crisis or storm (principal); R79.89 Other specified abnormal findings of blood chemistry; R10.9 Unspecified abdominal pain
CPT/HCPCS: 36415; 80076; 81003; 82306; 84439; 84443; 84481; 86140; 86704; 86706; 86709; 86803; 87340

== ENCOUNTER 2023-03-26 11:19 | Day surgery (SDC) | payer OTHER, SELFPAY ==
--- NOTE | 2023-03-23 14:19 | P.CONAN_ITS ---
Documented by User: Charlotte Mckenzie NP 03/23/23 14:20 HPI - Anesthesia Eval Consult details Narrative: 62yo F for Upper Endoscopy and Colonoscopy [facility] Active Problems Active Problems: All Active Problems (Updated 02/27/23 @ 14:45 by Yeimi Olivas MD) Abdominal pain (Acute) Elevated LFTs (Acute) Hyperthyroidism (Acute) Pruritus (Acute) Oral phase dysphagia (Acute) Sprain of cervical neck (Acute) Hoarseness (Acute) Enlarged thyroid (Acute) Colon polyps (Acute) Sciatica (Acute) Postnasal discharge (Acute) Left leg numbness (Acute) Positional vertigo (Acute) Neck pain (Acute) TIA (transient ischemic attack) (Acute) Hematuria (Acute) Annual physical exam (Acute) Abdominal pain (Acute) Myalgia (Acute) Chest pain (Acute) Hyperlipidemia (Acute) Trigger finger, right middle finger (Acute) Trigger finger of left thumb (Acute) Hand pain (Acute) Back pain (Acute) Mammogram normal (Acute) Constipation (Acute) Chronic neck pain (Acute) GERD (gastroesophageal reflux disease) (Acute) HTN (hypertension) (Acute) Vertigo (Acute) Past Medical History Medical History Abdominal pain Back pain Chest pain Chronic neck pain Constipation GERD (gastroesophageal reflux disease) Hand pain HTN (hypertension) Hyperlipidemia Mammogram normal Mid-back pain, acute Myalgia Vertigo Family History Family History Father Cancer Mother Stroke Sister No problems noted. Sister No problems noted. Son No problems noted. Daughter No problems noted. Surgical History Surgical History H/O colonoscopy History of esophagogastroduodenoscopy (EGD) No pertinent past surgical history Social History Social History Housing: Apartment Patient Tobacco Use Status: Never used Tobacco e-Cigarette/Vaping Use: Never Used Are you DNR?: No Advance Directives: No Advance Directives Information Provided: Yes Recently lost weight without trying: No Nutrition Risks: No Nutritional Risk Current occupational status: unemployed Current occupation: rt hand Cognitive needs: No Hearing needs: No Vision needs: No Meds Allergies Allergy/AdvReac Type Severity Reaction Status Date / Time No Known Allergies Allergy Verified 02/08/23 08:32 Home Medications Medication Instructions Recorded Confirmed Last Taken Type losartan 100 mg tablet 100 mg PO DAILY 03/26/23 03/26/23 03/26/23 History Exam Exam Date and Time: March 23, 2023 1419 Pertinent Lab Results Pertinent Lab Results: Laboratory Tests 09/08/22 02/08/23 13:31 09:08 WBC 7.2 Hgb 13.6 Hct 40.7 Plt Count 261 Sodium 140 Potassium 4.1 Chloride 106 Carbon Dioxide 26 BUN 12 Creatinine 0.75 Assessment and Plan Assessment Anesthesia Assessment: Chart Reviewed Documented by User: Gayla Vargas MD 03/26/23 12:22 [facility] Past Medical History Medical History Abdominal pain Back pain Chest pain Chronic neck pain Constipation GERD (gastroesophageal reflux disease) Hand pain HTN (hypertension) Hyperlipidemia Mammogram normal Mid-back pain, acute Myalgia Vertigo Family History Family History Father Cancer Mother Stroke Sister No problems noted. Sister No problems noted. Son No problems noted. Daughter No problems noted. Family history of problems with anesthesia: No Surgical History Surgical History H/O colonoscopy History of esophagogastroduodenoscopy (EGD) No pertinent past surgical history History of Problems with Anesthesia: No Social History Social History Housing: Apartment Patient Tobacco Use Status: Never used Tobacco e-Cigarette/Vaping Use: Never Used Are you DNR?: No Advance Directives: No Advance Directives Information Provided: Yes Recently lost weight without trying: No Nutrition Risks: No Nutritional Risk Current occupational status: unemployed Current occupation: rt hand Cognitive needs: No Hearing needs: No Vision needs: No Meds Allergies Allergy/AdvReac Type Severity Reaction Status Date / Time No Known Allergies Allergy Verified 02/08/23 08:32 Home Medications Medication Instructions Recorded Confirmed Last Taken Type losartan 100 mg tablet 100 mg PO DAILY 03/26/23 03/26/23 03/26/23 History Exam Airway Mallampati Class: II TM Dist: >3cm Neck ROM: Full Heart: rrr Lungs: cta Assessment and Plan Assessment Anesthesia Assessment: Anesthesia Plan Discussed Final Anesthetic Review Family History of Problems with Anesthesia: No History of Problems with Anesthesia: No NPO: Yes ASA Class: II Final Preanesthetic Review: No Changes in Pt Med Stat, Meds/Allgs Chart Reviewed and Consent Obtained/Reviewed Patient Risk: Intermediate Procedure Risk: Intermediate Anesthetic Plan Anesthetic Plan: MAC: Disposition: Standard PACU
[2023-03-26 11:04] VITALS: BMI 25.2
[2023-03-26 11:40] VITALS: BP 195/92; PULSE 87; RESP 20; TEMP 36.6; O2SAT 98
[2023-03-26 11:55] VITALS: BP 161/88
[2023-03-26] MEDS: Lactated Ringers 1,000 ML 100 ML IVCONT (12:04)
--- NOTE | 2023-03-26 12:20 | MHC.SHP ---
Pre-Procedural Eval Section A Date of Service: 03/26/23 Section B Chief Complaint: screening, GERD, bloating and diarrhea Relevant Family History (Specify if Yes): No Relevant Social History: None Present Medications: see Short Stay Collaborative assessment Medical History: Significant History (Abdominal pain Back pain Chest pain Chronic neck pain Constipation GERD (gastroesophageal reflux disease) Hand pain HTN (hypertension) Hyperlipidemia Mammogram normal Mid-back pain, acute Myalgia) History of Previous Operations: Relevant previous surgery/procedure and date(s) (H/O colonoscopy History of esophagogastroduodenoscopy (EGD) No pertinent past surgical history) Allergies: Allergies Allergy/AdvReac Type Severity Reaction Status Date / Time No Known Allergies Allergy Verified 02/08/23 08:32 Review of Systems Sugical H&P ROS: Negative: Constitution, Cardiovascular, Respiratory and Gastrointestinal Exam Surgical H&P Exam: Normal: Heart, Normal: Lungs, Normal: Extremities and Normal: Abdomen Plan Diagnosis/Plan: Unchanged I have reviewed the history and physical and performed a pertinent physical examination on my patient. No changes have occurred unless specified. Time Spent With Patient Time: Total time managing care of this patient today ____ minutes.
--- NOTE | 2023-03-26 12:30 | W.PM.OPN ---
Operative Note Operative Note Date of Service: 03/26/23 Narrative: FLEXIBLE TRANSORAL UPPER GASTROINTESTINAL ENDOSCOPY WITH BIOPSIES AND COLONOSCOPY TILL CECUM WITH SNARE POLYPECTOMY, SUBMUCOSAL INJECTION AND HEMOCLIP PLACEMENT Pre-op diagnosis: Colon cancer screening, GERD, abdominal bloating, diarrhea Post-op diagnosis: GERD, gastritis, colon polyp, diverticulosis, hemorrhoids? Endoscopist:? Wilfrido Green MD Anesthesia:?MAC UPPER ENDOSCOPY Consent: Indications for the procedure and potential complications of bleeding, perforation, reaction to medications and missed diagnosis were discussed with the patient and informed consent was obtained. Instrument: Olympus GIF H 190 mid size upper endoscope Monitoring: Vital signs and clinical assessment, continuous EKG monitoring, Pulse oximetry, Carbon Dioxide monitoring and blood pressure monitoring were done throughout the procedure. Procedure: The patient was placed in the left lateral decubitis position and pre-procedure medications were administered and a bite block was placed. The endoscope was inserted into the mouth and advanced under direct vision to the third part of duodenum. A careful inspection was made as the upper endoscope was withdrawn including a retroflexed examination of the proximal stomach; Findings and interventions are described below. Findings: Larynx: Normal Esophagus: GE junction at 36 cms. No esophagitis or Smith's. Stomach: Mild gastric erythema. Biopsies were obtained. Grade 2 flap valve on retroflexed examination of the cardia. Duodenum: Normal bulb and descending duodenum. Biopsies were obtained from 3rd part of duodenum to check for celiac sprue Intervention: Biopsies as noted above COLONOSCOPY PROCEDURE NOTE Consent: Indications for the procedure and potential complications of bleeding, perforation, reaction to medications and missed diagnosis were discussed with the patient and informed consent was obtained. Instrument: Olympus PCF H 190 L variable stiffness pediatric colonoscope Monitoring: Vital signs and clinical assessment, intermittent blood pressure monitoring, continuous EKG monitoring, Pulse oximetry and Carbon Dioxide monitoring were done throughout the procedure. Colon withdrawl time was 20 minutes. Procedure: The patient was placed in the left lateral decubitis position and pre-procedure medications were administered. After a digital rectal examination of the ano-rectum, the video colonoscope was inserted into the rectum and advanced through the colon to the cecum. The colonoscope was slowly withdrawn in a retrograde panoramic fashion and the colon mucosa was carefully examined including a retroflexed view of the rectum. Findings and interventions are described below. Procedure Difficulty: : Without difficulty Findings: Terminal Ileum: Not evaluated Cecum: Normal Ascending Colon: A 10-12 mm flat polyp (sessile serrated polyp on endoscopic appearance). Polyp was raised with 3 cc of Eleview and removed with a hot snare. Polypectomy site was closed with 1 hemoclip. Polyp was not retrieved. Transverse Colon: Normal Descending Colon: Normal Sigmoid Colon: Moderate diverticulosis Rectum: Normal Ano-rectum: Moderate internal hemorrhoids Colon preparation: Excellent Impression and Post Procedure Diagnosis: Endoscopy Findings: STOMACH: Mild antral gastritis DUODENUM: Normal Colonoscopy Findings: One medium sized polyp removed (suspected to be a sessile serrated polyp on endoscopic appearance) - polyp was not retrieved Moderate diverticulosis seen in the sigmoid colon Moderate hemorrhoids on retroflexed exam. Plan: Await pathology results Patient has an appointment on 04/09/23 in the [facility] with Gianna Del Rio FNP-BC. Repeat Colonoscopy interval based on path results - in 3 years since polyp was not retrieved. Above findings were reviewed with the patient and GERD, colon polyps and diverticulosis handouts were given in the discharge area
[2023-03-26 13:17] VITALS: BP 138/75; PULSE 72; RESP 16; TEMP 36.8; O2SAT 99
[2023-03-26 13:32] VITALS: BP 141/84; PULSE 64; RESP 16; O2SAT 99
[2023-03-26 13:44] VITALS: BP 155/82; PULSE 65; RESP 16; TEMP 36.8; O2SAT 98
== END 2023-03-26 14:56 | disposition home or self-care (01) ==
PROVIDERS: PCP Internal Medicine; Visit Provider Internal Medicine Gastroenterology
PROC: (CPT 45385; principal; 2023-03-26 13:50)
DX: Z12.11 Encounter for screening for malignant neoplasm of colon (principal); Z86.010 Personal history of colon polyps; K63.5 Polyp of colon; K57.30 Diverticulosis of large intestine without perforation or abscess without bleeding; K64.8 Other hemorrhoids; R19.7 Diarrhea, unspecified; K21.9 Gastro-esophageal reflux disease without esophagitis; R14.0 Abdominal distension (gaseous); K29.60 Other gastritis without bleeding; I10 Essential (primary) hypertension; E78.5 Hyperlipidemia, unspecified; M79.10 Myalgia, unspecified site
CPT/HCPCS: 45385; 45381; 43239; 88305; 88342

== ENCOUNTER 2023-04-09 12:05 | Outpatient (AMB) | payer OTHER, SELFPAY ==
--- NOTE | 2023-04-09 12:11 | A.OFFVIS_ITS ---
Intake Vital Signs 04/09/23 12:13 Height 5 ft 2 in Weight 132 lb BMI 24.1 BP 163/76 H Blood Pressure Location Lt brachial Position Sitting Pulse 70 Intake Visit Reasons: s/p colon Intake Note: Patient follow up for EGD/Colonoscopy results. Patient cc: Right middle abdominal pain come and go, acid reflex on and off, an denies any other GI issues. Optical Laboratory Technician Required: No Accompanied by: Self / Same As Patient Allergies No Known Allergies Allergy (Verified 04/09/23 12:10) HPI s/p colon HPI Details LAST VISIT: Screen for colon cancer Patient denies any GI, cardiac or respiratory symptoms.? Denies any issues with anesthesia in the past.? Denies any history of sleep apnea.? No history infectious diseases in the past or present.? Not on any anticoagulation therapy.? No family or personal history of colon cancer. Last colonoscopy over 3 years ago 3 polyps removed. Patient states that her colonoscopy was at [facility].? Patient denies melena, hematochezia, unintentional weight loss or ribbon like stools.? Discussed at length the pre-procedure,? prep, diet & medications as well as what to expect prior, during and after the procedure.?? Stressed the importance of good bowel prep. ?Recommended the use of Vaseline or Calmoseptine OTC & baby wipes with bowel movements to promote comfort.? ?Patient verbalizes understanding and agrees to plan of care.? She was given the o pportunity to ask questions and all questions answered.? We will see her after the procedure.? GERD (gastroesophageal reflux disease) Patient reports occasional dyspepsia, on omeprazole currently. Will send her to do H pylori testing. Patient can continue omeprazole. Discussed with patient avoiding dietary triggers and late night snacking. Staying upright for minimal 3 hours after meals discussed with patient. Patient will be sent for upper endoscopy to further evaluate for gastritis, esophagitis, duodenitis, gastric or peptic ulcers, H pylori. Patient reports occasional dyspepsia, however she is being sent by her PCP for ultrasound to rule out enlarged thyroid, nodules. I will see patient after the procedure, sooner on as needed basis or if her H pylori come back positive to discuss treatment. Patient is agreeable to this plan and verbalizes understanding of instructions. She was given the opportunity to ask questions and all questions answered. UPPER ENDOSCOPY AND COLONOSCOPY Findings: Larynx: Normal Esophagus: GE junction at 36 cms. No esophagitis or Smith's. Stomach: Mild gastric erythema. Biopsies were obtained. Grade 2 flap valve on retroflexed examination of the cardia. Duodenum: Normal bulb and descending duodenum. Biopsies were obtained from 3rd part of duodenum to check for celiac sprue Intervention: Biopsies as noted above COLONOSCOPY PROCEDURE NOTE Consent: Indications for the procedure and potential complications of bleeding, perforation, reaction to medications and missed diagnosis were discussed with the patient and informed consent was obtained. Instrument: Olympus PCF H 190 L variable stiffness pediatric colonoscope Monitoring: Vital signs and clinical assessment, intermittent blood pressure monitoring, continuous EKG monitoring, Pulse oximetry and Carbon Dioxide monitoring were done throughout the procedure. Colon withdrawl time was 20 minutes. Procedure: The patient was placed in the left lateral decubitis position and pre-procedure medications were administered. After a digital rectal examination of the ano-rectum, the video colonoscope was inserted into the rectum and advanced through the colon to the cecum. The colonoscope was slowly withdrawn in a retrograde panoramic fashion and the colon mucosa was carefully examined including a retroflexed view of the rectum. Findings and interventions are described below. Procedure Difficulty: : Without difficulty Findings: Terminal Ileum: Not evaluated Cecum: Normal Ascending Colon: A 10-12 mm flat polyp (sessile serrated polyp on endoscopic appearance). Polyp was raised with 3 cc of Eleview and removed with a hot snare. Polypectomy site was closed with 1 hemoclip. Polyp was not retrieved. Transverse Colon: Normal Descending Colon: Normal Sigmoid Colon: Moderate diverticulosis Rectum: Normal Ano-rectum: Moderate internal hemorrhoids Colon preparation: Excellent Impression and Post Procedure Diagnosis: Endoscopy Findings: STOMACH: Mild antral gastritis DUODENUM: Normal Colonoscopy Findings: One medium sized polyp removed (suspected to be a sessile serrated polyp on endoscopic appearance) - polyp was not retrieved Moderate diverticulosis seen in the sigmoid colon Moderate hemorrhoids on retroflexed exam. Plan: Repeat Colonoscopy interval based on path results - in 3 years since polyp was not retrieved. PATHOLOGY Diagnosis A. Small bowel, biopsy: Small bowel mucosa within normal limits; preserved villous architecture and no increased intraepithelial lymphocytes seen. B. Stomach, antrum, biopsy: Gastric antral mucosa with reactive gastropathy; negative for Helicobacter pylori, intestinal metaplasia and dysplasia TODAY'S VISIT Patient is here today for follow-up and to discuss upper endoscopy and colonoscopy results. Patient reports occasional epigastric discomfort postprandially and acid reflux, however she reports that for the most part she has been feeling well. Patient is taking omeprazole 20 mg in the morning and reports that her symptoms are suppressed for the most part. Occasional acid reflux in the morning and during the night time. Patient denies eating late at night. Patient reports occasional dyspepsia without dysphagia or odynophagia. Patient was found to have 1 polyp that was not retrieved and recommendation was made for patient to return in 3 years for colorectal screening. Patient was found to have moderate diverticulosis in sigmoid colon as well as moderate hemorrhoids. Patient denies any abdominal pain, denies any melena, hematochezia, unintentional weight loss or ribbon like stools. Patient reports bilateral shoulder pain. Patient reports also neck pain. Was given script for cyclobenzaprine in the past and states that it was helpful. Patient will follow-up with her PCP, might need referral to physical therapy, x-ray, orthopedics if necessary. [facility] Medical History Abdominal pain Back pain Chest pain Chronic neck pain Constipation GERD (gastroesophageal reflux disease) Hand pain HTN (hypertension) Hyperlipidemia Mammogram normal Mid-back pain, acute Myalgia Vertigo Surgical History H/O colonoscopy History of esophagogastroduodenoscopy (EGD) No pertinent past surgical history Family History Father Cancer Mother Stroke Sister No problems noted. Sister No problems noted. Son No problems noted. Daughter No problems noted. Social History Housing: Apartment Patient Tobacco Use Status: Never used Tobacco e-Cigarette/Vaping Use: Never Used Current occupational status: unemployed Current occupation: rt hand Cognitive needs: No Hearing needs: No Vision needs: No Review of Systems Const Denies weight gain and Denies weight loss ENT Reports no additional complaints, Denies dysphagia and Denies odynophagia Card Reports no additional complaints Resp Reports no additional complaints GI Denies abdominal pain, Denies belching, Denies melena, Denies bloating, Denies change in bowel habits, Reports constipation, Denies dysphagia, Denies excessive flatus, Denies dyspepsia, Reports heartburn (Occasional), Denies diarrhea, Denies loose stools, Denies nausea, Denies odynophagia and Denies vomiting Reports no additional complaints Musc Reports no additional complaints Neuro Reports no additional complaints Psych Reports no additional complaints Endo Reports no additional complaints Physical Exam Vital Signs: Last Vital Signs Pulse 70 04/09/23 12:13 BP 163/76 H 04/09/23 12:13 BMI result Body Mass Index 24.1 Const General: healthy appearing, no acute distress and well developed Nutritional Appearance: well nourished Orientation/consciousness: patient oriented x3 HEENT Head: Yes normal to inspection, Yes normocephalic and Yes atraumatic Face and sinus: Yes normal facial exam Mouth: Normal oral and palatal mucosa present Throat: Yes posterior oropharynx normal, Yes tonsils normal and Yes uvula midline Eyes General: appearance normal, both eyes and all related structures Neck Neck: Yes normal visual inspection, Yes full ROM and Yes trachea midline Thyroid: Thyroid normal Resp Effort & Inspection: normal respiratory effort, able to speak in complete sentences, no tracheal deviation and symmetric chest movement Auscultation: clear to auscultation bilaterally Cardio Rate: regular rate Heart sounds: S1 normal heart sound present and S2 normal heart sound present GI Inspection: Yes normal to inspection and No distended Palpation (GI): Soft to palpation, not firm, nontender and No hepatosplenomegaly present Auscultation: normal bowel sounds General: Yes no CVA tenderness Back/Spine/Pelvis Back: no CVA tenderness Skin General skin exam: elasticity normal, turgor normal and dry skin Neuro General: patient oriented x3 Psych Appearance: grossly normal Mental Status: mental status grossly normal Assessment & Plan Assessment & Plan (1) Shoulder pain, bilateral: Code(s): M25.511 - Pain in right shoulder; M25.512 - Pain in left shoulder Qualifiers: Chronicity: chronic Qualified Code(s): M25.511 - Pain in right shoulder; M25.512 - Pain in left shoulder; G89.29 - Other chronic pain (2) Abdominal pain: Code(s): R10.9 - Unspecified abdominal pain Qualifiers: Abdominal location: epigastric Qualified Code(s): R10.13 - Epigastric pain (3) Elevated LFTs: Code(s): R79.89 - Other specified abnormal findings of blood chemistry (4) GERD (gastroesophageal reflux disease): Code(s): K21.9 - Gastro-esophageal reflux disease without esophagitis Qualifiers: Esophagitis presence: esophagitis presence not specified Qualified Code(s): K21.9 - Gastro-esophageal reflux disease without esophagitis Plan Patient will continue taking omeprazole in the morning. I will add famotidine at bedtime, patient can take it on as needed basis. Patient was also instructed to avoid dietary triggers in late night snacking. Staying upright for minimum 3 hours after meals discussed with patient. Patient was encouraged to increase fiber in her diet. Moderate diverticulosis seen in sigmoid colon. Patient also was encouraged to take probiotics, drink plenty fluids and increase activity to promote better bowel motility. As mentioned above in HPI, 1 polyp found and not retrieved. Recommendation was made for patient to return in 3 years, sooner if clinically necessary. Patient will follow-up in our office in 6 months, sooner on as needed basis. Script for cyclobenzaprine ordered due to bilateral shoulder pain. Patient will follow-up with PCP regarding this issue. Tenderness to trapezius muscle might need to have physical therapy. Patient was encouraged to try to avoid stress. Patient is agreeable to this plan and verbalizes understanding of instructions. She was given the opportunity to ask questions and all questions answered. Thank you for allowing me to participate in her care Medications: New cyclobenzaprine 10 mg PO BEDTIME PRN 7 tabs 0RF muscle spasm famotidine (Pepcid) 20 mg PO BEDTIME 90 tabs 3RF K21.9 - Gastro-esophageal reflux disease without esophagitis Coding Level of Care Code Est Pt Level 4 (85631) Diagnoses Chronic pain of both shoulders M25.511; M25.512; G89.29 Chronicity: chronic Epigastric pain R10.13 Abdominal location: epigastric Elevated LFTs R79.89 Gastroesophageal reflux disease, unspecified whether esophagitis present K21.9 Esophagitis presence: esophagitis presence not specified Time Spent (min) 35 Comment 25 minutes spent with patient and additional 10 minutes spent reviewing her records
[2023-04-09 12:13] VITALS: BP 163/76; PULSE 70; BMI 24.1
== END 2023-04-09 12:59 | disposition home or self-care (01) ==
PROVIDERS: PCP Internal Medicine; Visit Provider Nurse Practitioner Family
DX: M25.511 Pain in right shoulder (principal); M25.512 Pain in left shoulder; G89.29 Other chronic pain; R10.13 Epigastric pain; R79.89 Other specified abnormal findings of blood chemistry; K21.9 Gastro-esophageal reflux disease without esophagitis
CPT/HCPCS: 99214

== ENCOUNTER → 2023-04-09 12:05 | Outpatient (BNVA) | payer OTHER, SELFPAY | PROVIDERS: PCP Internal Medicine; Visit Provider Nurse Practitioner Family | DX: K21.9 Gastro-esophageal reflux disease without esophagitis (principal); R10.13 Epigastric pain; R79.89 Other specified abnormal findings of blood chemistry; M25.511 Pain in right shoulder; M25.512 Pain in left shoulder; G89.29 Other chronic pain | CPT/HCPCS: 99212 ==

== ENCOUNTER 2023-05-15 08:07 | Outpatient (REF) | payer OTHER, SELFPAY ==
[2023-05-15 11:54] LABS: TSH reflex Free T4 2.09 uIU/mL (0.32-4.0)
== END 2023-05-15 08:08 | disposition home or self-care (01) ==
LOC: HO.HMGCLDS 08:07
PROVIDERS: PCP Internal Medicine; Visit Provider Internal Medicine
DX: E05.90 Thyrotoxicosis, unspecified without thyrotoxic crisis or storm (principal)
CPT/HCPCS: 36415; 84443

== ENCOUNTER 2023-09-10 13:59 | Outpatient (AMB) | payer SELFPAY ==
[2023-09-10 14:02] VITALS: BP 126/78; PULSE 78; O2SAT 97; BMI 24.9
--- NOTE | 2023-09-10 14:02 | A.OFFPC_ITS ---
Vital Signs 09/10/23 14:02 Height 5 ft 2 in Weight 136 lb BMI 24.9 BP 126/78 Blood Pressure Location Lt brachial Position Sitting Pulse 78 Pulse Source Pulse Oximeter Pulse Oximetry (%) 97 Oxygen Delivery Method Room Air Intake Visit Reasons: Dizziness Intake Note: Pt is here today for a sick visit. Pt c/o diziness and pain on the R side of her head for last 3 weeks. Allergies No Known Allergies Allergy (Verified 09/10/23 14:06) Medication List - Last Reconciled 09/10/23 by Yeimi Olivas MD estradiol 0.01%(0.1mg/gram) 1 appful vaginal 3XW famotidine (Pepcid) 20 mg PO BEDTIME losartan 100 mg PO DAILY omeprazole 20 mg PO DAILY Tobacco use date assessed: 09/10/23 Fall risk assessment: No Falls in past year Last assessed Fall Risk: 09/10/23 Dental Screening Dental Screen Date: 09/10/23 Did you have a dental visit in the last 12 months?: Yes Did you have a dental problem in the last 6 months where you did not have access to dental care?: No Was dental information given to patient?: Patient has dentist HPI Dizziness HPI Details Pt c/o 3 weeks of positional vertigo when lying on the R side, worse in the morning before getting up from bed. Patient denies any change in balance, weakness or numbness in extremities, change in vision or hearing. Patient has been under lot of stress because her daughter in lowest diagnosed with breast cancer at 39. [facility] Medical History Abdominal pain Myalgia Chest pain Hyperlipidemia Hand pain Back pain Mammogram normal Constipation GERD (gastroesophageal reflux disease) Vertigo Chronic neck pain Mid-back pain, acute HTN (hypertension) Surgical History H/O colonoscopy History of esophagogastroduodenoscopy (EGD) No pertinent past surgical history Family History Father Cancer Mother Stroke Sister No problems noted. Sister No problems noted. Son No problems noted. Daughter No problems noted. Social History Housing: Apartment Patient Tobacco Use Status: Never used Tobacco e-Cigarette/Vaping Use: Never Used Current occupational status: unemployed Current occupation: rt hand Cognitive needs: No Hearing needs: No Vision needs: No Questionnaire PHQ-9 Over the last 2 weeks, how often have you been bothered by any of the following problems? 1. Little interest or pleasure in doing things: not at all 2. Feeling down, depressed, or hopeless: not at all 3. Trouble falling or staying asleep, or sleeping too much: not at all 4. Feeling tired or having little energy: not at all 5. Poor appetite or overeating: not at all 6. Feeling bad about yourself - or that you are a failure or have let yourself or your family down: not at all 7. Trouble concentrating on things, such as reading the newspaper or watching television: not at all 8. Moving or speaking so slowly that other people could have noticed. Or the opposite - being so fidgety or restless that you have been moving around a lot more than usual: not at all 9. Thoughts that you would be better off or of hurting yourself in some way: not at all Total score: 0 Depression Screening Interpretation: Negative Depression Screening Done: Yes Source: Developed by Drs. Ilia Reece, Kimberly Almodovar, Mack Hdz and colleagues, with an educational odette from [employer]. Thrive Questionnaire Date Thrive assessed: 09/10/23 I am a: Patient What is your living situation today?: I have a steady place to live Within the past 12 months, did the food you bought not last and you didn't have the money to get more?: Never true Within the past 12 months, did you worry whether your food would run out before you got money to buy more?: Never true Do you have trouble paying for medicines?: No Do you have trouble getting transportation to medical appointments?: No Do you have trouble paying your heating and electricity bill?: No Do you have trouble taking care of your child, family member or friend?: No Do you have trouble with day-to-day activities such as bathing, preparing meals, shopping, managing finances, etc.?: No Are you currently unemployed and looking for a job?: No Are you interested in more education?: No Please select the resources that you would like help with: None THRIVE Score: 0 AUDIT C Alcohol Use Questionnaire (AUDIT-C) 1. How often do you have a drink containing alcohol?: Never 3. How often do you have six or more drinks on one occasion?: Never Total Score: 0 SHAWN-7 AMB Questionnaire SHAWN-7 Date SHAWN - 7 assessed: 09/10/23 Feeling nervous, anxious, or on edge: 0 = Not at all Not being able to stop or control worryin = Not at all Worrying too much about different things: 0 = Not at all Trouble relaxin = Not at all Being so restless that it is hard to sit still: 0 = Not at all Becoming easily annoyed or irritable: 0 = Not at all Feeling afraid as if something awful might happen: 0 = Not at all Total SHAWN-7 score (0-4 normal; 5-9 mild; 10-14 moderate; 15-21 severe): 0 Source: Developed by Drs. Ilia Reece, Kimberly Almodovar, Mack Hdz and colleagues, with an educational odette from [employer]. Review of Systems Const All systems reviewed & are unremarkable except as noted in HPI and below Reports no additional complaints Eyes Reports no additional complaints ENT Reports no additional complaints Card Reports no additional complaints Resp Reports no additional complaints GI Reports no additional complaints Reports no additional complaints Physical exam (Primary Care) Vital Signs: Last Vital Signs Pulse 78 09/10/23 14:02 BP 126/78 09/10/23 14:02 Pulse Ox 97 09/10/23 14:02 Oxygen Delivery Method Room Air 09/10/23 14:02 BMI result Body Mass Index 24.9 Tobacco/Smoking Status: Tobacco use Status Tobacco use date assessed 09/10/23 09/10/23 14:09 Patient Tobacco Use Status Never used Tobacco 09/10/23 14:09 e-Cigarette/Vaping Use Never Used 09/10/23 14:09 PHQ-9: PHQ-9 Score PHQ-9: Total score 0 09/10/23 14:09 Depression Screening Interpretation: Negative Thrive Assessment: Date of Thrive Assessment Date Thrive assessed 09/10/23 09/10/23 14:09 Const General: no acute distress HENMT Head: Yes normal to inspection Ears: hearing grossly normal bilaterally General nose exam: Normal external nose present Face and sinus: Yes normal facial exam Mouth: Normal oral and palatal mucosa present Eyes General: appearance normal, both eyes and all related structures Neck Neck: Yes no lymphadenopathy and Yes supple Resp Effort & Inspection: normal respiratory effort Auscultation: clear to auscultation bilaterally Cardio Rhythm: regular rhythm Heart sounds: S1 normal heart sound present and S2 normal heart sound present GI Inspection: Yes normal to inspection Palpation (GI): Soft to palpation Neuro Cranial nerves: Yes CN's II-XII intact bilaterally Gait exam (Neuro): Normal gait present Motor exam (neuro): 5/5 motor strength present throughout Romberg Test: Negative Assessment and Plan Assessment & Plan (1) HTN (hypertension): Code(s): I10 - Essential (primary) hypertension Plan: Continue losartan, medication compliance discussed with the patient (2) Hyperlipidemia: Comment: REFUSED STATINS Code(s): E78.5 - Hyperlipidemia, unspecified Plan: Continue low-cholesterol diet return for fasting blood work (3) Benign positional vertigo: Code(s): H81.10 - Benign paroxysmal vertigo, unspecified ear Plan: Meclizine is prescribed and supportive care discussed with the patient. Ves tibular therapy was recommended but patient declined. She will follow-up in 1 month Orders: Orders Comprehensive Met. Panel Today E78.5 - Hyperlipidemia, unspecified, I10 - Essential (primary) hypertension Complete Blood Count Auto Diff Today E78.5 - Hyperlipidemia, unspecified, I10 - Essential (primary) hypertension Lipid Panel Today E78.5 - Hyperlipidemia, unspecified, I10 - Essential (primary) hypertension TSH reflex Free T4 Today E78.5 - Hyperlipidemia, unspecified, I10 - Essential (primary) hypertension Vitamin D 25-OH Total Today E78.5 - Hyperlipidemia, unspecified, I10 - Essential (primary) hypertension Medications: New losartan 100 mg PO DAILY 90 tabs 3RF meclizine 25 mg PO BID PRN 60 tabs 0RF dizziness Coding Level of Care Code Est Pt Level 3 (08644) Diagnoses HTN (hypertension) I10 Hyperlipidemia E78.5 Benign positional vertigo H81.10
== END 2023-09-10 14:44 | disposition home or self-care (01) ==
PROVIDERS: PCP Internal Medicine; Visit Provider Internal Medicine
DX: I10 Essential (primary) hypertension (principal); E78.5 Hyperlipidemia, unspecified; H81.11 Benign paroxysmal vertigo, right ear
CPT/HCPCS: 99213

== ENCOUNTER 2023-09-11 07:44 | Outpatient (REF) | payer SELFPAY ==
[2023-09-11 11:27] LABS: MANUAL DIFF FLAG NO
[2023-09-11 11:35] LABS: Basophils Percent Auto 0.6 % (0-2); Eosinophils Absolute Auto 0.5 X10*3/uL (0.0-0.4); Eosinophils Percent Auto 7.1 % (0-4); Hemoglobin 13.8 g/dl (12.0-16.0); Imm Gran Abs Auto 0.01 X10*3/uL (0.00-0.03); Imm Gran Pct Auto 0.1 % (0.0-0.4); Lymphocytes Absolute Auto 3.1 X10*3/uL (1.2-4.9); Lymphocytes Percent Auto 44.7 % (20-40); Mean Corpuscular HGB Conc 32.9 g/dl (31.0-35.0); Mean Corpuscular Hemoglobin 29.2 pg (27.0-33.0); Mean Platelet Volume 9.4 fL (9.4-12.3); Monocytes Absolute Auto 0.6 X10*3/uL (0.1-1.2); Monocytes Percent Auto 8.3 % (2-11); Neutrophils Absolute Auto 2.8 x10*3/uL (2.0-8.3); Neutrophils Percent Auto 39.2 % (45-73); Platelet Count 302 X10*3/uL (160-400); Red Blood Count 4.72 X10*6/uL (4.20-5.50); Red Cell Distribution Width 12.3 % (11.0-16.0)
[2023-09-11 12:34] LABS: Alanine Aminotransferase 24 U/L (0-31); Alkaline Phosphatase 71 U/L (39-117); Anion Gap 11 (12-20); Aspartate Amino Transferase 23 U/L (5-31); Bilirubin Total 0.5 mg/dL (0.0-1.0); Blood Urea Nitrogen 15 mg/dL (9-16); Calcium 9.5 mg/dL (8.4-10.2); Carbon Dioxide 29 mmol/L (22-29); Chloride 105 mmol/L (96-108); Cholesterol 241 mg/dL (<200); Estimated Glomerular Filt Rate > 60; Glucose Random 96 mg/dL (60-115); HDL Cholesterol 43 mg/dL (>40); LDL Cholesterol Calculated 160 mg/dL (<100); Potassium 4.3 mmol/L (3.3-5.1); Sodium 141 mmol/L (135-145); TSH reflex Free T4 1.71 uIU/mL (0.32-4.0); Total Protein 7.3 g/dL (6.5-8.0); Triglycerides 191 mg/dL (<150); Vitamin D 25-OH Total 63.7 ng/mL (>30)
== END 2023-09-11 07:45 | disposition home or self-care (01) ==
LOC: HO.HMGCLDS 07:44
PROVIDERS: PCP Internal Medicine; Visit Provider Internal Medicine
DX: I10 Essential (primary) hypertension (principal); E78.5 Hyperlipidemia, unspecified
CPT/HCPCS: 36415; 80053; 80061; 82306; 84443; 85025

== ENCOUNTER 2023-10-03 13:05 | Outpatient (AMB) | payer BC, SELFPAY ==
[2023-10-03 13:08] VITALS: BP 148/70; PULSE 73; BMI 24.6
--- NOTE | 2023-10-03 13:08 | MHC.OFFVIS ---
Intake Vital Signs 10/03/23 13:08 Height 5 ft 2 in Weight 134 lb 7.712 oz BMI 24.6 BP 148/70 H Blood Pressure Location Lt brachial Position Sitting Pulse 73 Intake Visit Reasons: 6 month Follow up Intake Note: Patient returns to in office 6 months follow up of abdominal pain. CC: Patient c/o epigastric pain w/radiation to her liver , and when she has epigastric pain she also gets pain from mid upper back. She also c/o hearburn and acid reflux. Shingle Carrier Required: No Accompanied by: Self / Same As Patient Allergies No Known Allergies Allergy (Verified 10/03/23 13:13) HPI 6 month Follow up HPI Details LAST VISIT: Shoulder pain, bilateral Abdominal pain Elevated LFTs GERD (gastroesophageal reflux disease) Plan Patient will continue taking omeprazole in the morning. I will add famotidine at bedtime, patient can take it on as needed basis. Patient was also instructed to avoid dietary triggers in late night snacking. Staying upright for minimum 3 hours after meals discussed with patient. Patient was encouraged to increase fiber in her diet. Moderate diverticulosis seen in sigmoid colon. Patient also was encouraged to take probiotics, drink plenty fluids and increase activity to promote better bowel motility. As mentioned above in HPI, 1 polyp found and not retrieved. Recommendation was made for patient to return in 3 years, sooner if clinically necessary. Patient will follow-up in our office in 6 months, sooner on as needed basis. Script for cyclobenzaprine ordered due to bilateral shoulder pain. Patient will follow-up with PCP regarding this issue. Tenderness to trapezius muscle might need to have physical therapy. Patient was encouraged to try to avoid stress. Patient is agreeable to this plan and verbalizes understanding of instructions. She was given the opportunity to ask questions and all questions answered. ? Thank you for allowing me to participate in her care Medications New cyclobenzaprine 10 mg PO BEDTIME PRN 7 tabs 0RF muscle spasm famotidine (Pepcid) 20 mg PO BEDTIME 90 tabs 3RF K21.9 TODAY'S VISIT: Patient is here today for follow-up. Patient reports that she continues to have epigastric pain that radiates to her right upper quadrant and her back. Patient denies any chest pain, shortness of breath with or without exertion. Patient also reports bilateral shoulder pain. All patient's blood work reviewed as well as her both ultrasounds 1 from February of 2023 and 1 from July of 2021. Both reports stated that patient had normal gallbladder without cholelithiasis or cholecystitis, however patient states that she had her gallbladder removed laparoscopically over 20 years ago in [place]. Called made to Radiology to review the reports again. Patient reports that she stopped eating bread and is avoiding some of the food that would cause her symptoms. However patient is drinking lots of herbal tea and not drinking plenty fluids. Patient reports that she moves her bowels for the most part, however occasionally will be constipated with no bowel movement for 1 or 2 days. Patient denies any nausea or vomiting. Reports dyspepsia without dysphagia or odynophagia. [facility] Medical History (Updated 10/03/23 @ 16:16 by LOTTIE CallawayBAM) Abdominal pain Myalgia Chest pain Hyperlipidemia Hand pain Back pain Mammogram normal Constipation GERD (gastroesophageal reflux disease) Vertigo Chronic neck pain Mid-back pain, acute HTN (hypertension) Surgical History (Updated 10/03/23 @ 16:05 by TOM Callaway) History of cholecystectomy H/O colonoscopy History of esophagogastroduodenoscopy (EGD) No pertinent past surgical history Family History Father Cancer Mother Stroke Sister No problems noted. Sister No problems noted. Son No problems noted. Daughter No problems noted. Social History Housing: Apartment Patient Tobacco Use Status: Never used Tobacco e-Cigarette/Vaping Use: Never Used Current occupational status: unemployed Current occupation: rt hand Cognitive needs: No Hearing needs: No Vision needs: No Review of Systems Const Denies weight gain and Denies weight loss ENT Reports no additional complaints, Denies dysphagia and Denies odynophagia Card Reports no additional complaints Resp Reports no additional complaints GI Reports abdominal pain (Epigastric), Denies belching, Denies melena, Reports bloating, Reports constipation (Occasional), Denies dysphagia, Denies excessive flatus, Reports dyspepsia, Reports heartburn, Denies diarrhea, Denies loose stools, Denies nausea, Denies odynophagia and Denies vomiting Reports no additional complaints Musc Reports no additional complaints Neuro Reports no additional complaints Psych Reports no additional complaints Endo Reports no additional complaints Physical Exam Vital Signs: Last Vital Signs Pulse 73 10/03/23 13:08 BP 148/70 H 10/03/23 13:08 BMI result Body Mass Index 24.6 Const General: healthy appearing, no acute distress and well developed Nutritional Appearance: well nourished Orientation/consciousness: patient oriented x3 Resp Effort & Inspection: normal respiratory effort, able to speak in complete sentences, no tracheal deviation and symmetric chest movement Auscultation: clear to auscultation bilaterally Cardio Rate: regular rate GI Inspection: Yes normal to inspection and No distended Palpation (GI): Soft to palpation, not firm, nontender and No hepatosplenomegaly present Auscultation: normal bowel sounds General: Yes no CVA tenderness Back/Spine/Pelvis Back: no CVA tenderness Skin General skin exam: elasticity normal, turgor normal and dry skin Neuro General: patient oriented x3 Psych Appearance: grossly normal Mental Status: mental status grossly normal Results Reviewed Results Reviewed: ADDENDUM TO ULTRASOUND THAT WAS DONE IN 2022 ADDENDUMAddendum: The images are reviewed and compared with 08/17/2021. Clarification is needed. The prior report from 08/17/2021 describes a normal gallbladder. However, the gallbladder is not identified on either 0 08/17/2021 or 02/28/2023. This represents an inadvertent retention of standard comments using a report template. The report should state that the gallbladder is absent. The common bile duct is normal in caliber (measures 0.6 cm diameter). The liver is chronically hyperechoic, suggestive of steatosis. Assessment & Plan Assessment & Plan (1) Abdominal pain: Code(s): R10.9 - Unspecified abdominal pain Qualifiers: Abdominal location: epigastric Qualified Code(s): R10.13 - Epigastric pain (2) Constipation: Code(s): K59.00 - Constipation, unspecified Qualifiers: Constipation type: slow transit constipation Qualified Code(s): K59.01 - Slow transit constipation (3) Postprandial epigastric pain: Code(s): R10.13 - Epigastric pain (4) Postprandial abdominal pain in right upper quadrant: Code(s): R10.11 - Right upper quadrant pain Plan Patient reports that she has been taking omeprazole every other day, however she does not feel like it is helping. Patient states that matter of fact she feels worse. States that her burning persists worse when eating. Avoiding different food and keeping track of what she eats. History of cholecystectomy over 20 years ago. However 2 ultrasound reports described patient having healthy gallbladder. Call placed to Radiology and clarification made. Addendum was done to the last report by radiologist who read the report. Attached to this chart for clarification. Epigastric pain that radiates to right upper quadrant and patient's back. Patient does report to be bloated. Possible acid reflux versus gas trapping pain. Also possibility of biliary stone causing biliary colic. Patient will be sent for a HIDA scan without the contrast or MRCP. Patient will call insurance to find out how much co-pay for each of the test. Discussed with patient also avoiding dietary triggers. Patient will start to follow FODMAP diet. List of food recommended as well as list of food to avoid given to patient. Patient reports occasional constipation when no bowel movement for 1 or 2 days. Patient was encouraged to increase fluid intake and activity to promote better bowel motility 1st before starting anything to help her move her bowels. She will return in the office in 6 months, sooner on as needed basis. Patient is agreeable to this plan and verbalizes understanding of instructions. She was given the opportunity to ask questions and all questions answered. Thank you for allowing me to participate in her care Medications: New pantoprazole 20 mg PO DAILY 90 tabs 1RF Refilled famotidine (Pepcid) 20 mg PO BEDTIME 90 tabs 3RF K21.9 - Gastro-esophageal reflux disease without esophagitis Discontinued omeprazole Discontinued Reason: Doctor's Order 20 mg PO DAILY 90 caps 3RF Coding Level of Care Code Est Pt Level 4 (57582) Diagnoses Epigastric pain R10.13 Abdominal location: epigastric Slow transit constipation K59.01 Constipation type: slow transit constipation Postprandial epigastric pain R10.13 Postprandial abdominal pain in right upper quadrant R10.11 Time Spent (min) 35 Comment 20 minutes spent with patient and additional 15 minutes spent reviewing her records
== END 2023-10-03 14:18 | disposition home or self-care (01) ==
PROVIDERS: PCP Internal Medicine; Visit Provider Nurse Practitioner Family
DX: R10.13 Epigastric pain (principal); K59.01 Slow transit constipation; R10.11 Right upper quadrant pain
CPT/HCPCS: 99214

== ENCOUNTER → 2023-10-03 13:05 | Outpatient (BNVA) | payer BC, SELFPAY | PROVIDERS: PCP Internal Medicine; Visit Provider Nurse Practitioner Family | DX: R10.13 Epigastric pain (principal); K59.01 Slow transit constipation; R10.11 Right upper quadrant pain; K21.9 Gastro-esophageal reflux disease without esophagitis | CPT/HCPCS: 99212 ==

== ENCOUNTER → 2023-10-16 07:47 | Outpatient (REF) | payer BC, SELFPAY ==
--- NOTE | ~2023-10-16 | NM_ITS ---
EXAMINATION: BILIARY TRACT IMAGING STUDY CLINICAL INFORMATION: Right upper quadrant pain. Patient states gallbladder removed 20 years ago.. COMPARISON: No previous biliary scan is available for comparison. Abdominal ultrasound studies dated 02/28/2023 and 08/17/2021 are available for comparison.. TECHNIQUE: Serial gamma scintillation camera images were obtained over the abdomen for a total observation period of 60 minutes following the intravenous administration of 5 mCi Tc-99m Mebrofenin. FINDINGS: There is good concentration of activity in the liver by 5 minutes post injection. Biliary activity is visualized by 13 minutes. Small bowel is well visualized by 18 minutes. The gallbladder is not visualized at any time during the study. Abdominal ultrasound studies dated 02/28/2023 and 08/17/2021 did not visualize the gallbladder. NM/NM hepatobiliary wo pharm IMPRESSION: Nonvisualization of the gallbladder consistent with the history of resection 20 years ago. The common bile duct is patent. Liver function appears normal.
== END ==
LOC: HO.NUCMED 07:47
PROVIDERS: Visit Provider Nurse Practitioner Family
DX: R10.11 Right upper quadrant pain (principal)
CPT/HCPCS: 78226; A9537

== ENCOUNTER 2024-02-05 13:49 | Outpatient (AMB) | payer BC, SELFPAY ==
[2024-02-05 13:57] VITALS: BP 136/70; PULSE 84; O2SAT 97; BMI 24.9
--- NOTE | 2024-02-05 13:57 | A.OFFPC_ITS ---
Vital Signs 02/05/24 13:57 Height 5 ft 2 in Weight 136 lb BMI 24.9 BP 136/70 Blood Pressure Location Lt brachial Position Sitting Pulse 84 Pulse Source Pulse Oximeter Pulse Oximetry (%) 97 Oxygen Delivery Method Room Air Intake Visit Reasons: Elevated BP Intake Note: Pt is here today for a sick visit. Pt c/o elevated BP and chest pain. Allergies No Known Allergies Allergy (Verified 02/05/24 14:01) Medication List - Last Reconciled 02/05/24 by Yeimi Olivas MD estradiol 0.01%(0.1mg/gram) 1 appful vaginal 3XW famotidine (Pepcid) 20 mg PO BEDTIME losartan 100 mg PO DAILY meclizine 25 mg PO BID PRN pantoprazole 20 mg PO DAILY Tobacco use date assessed: 02/05/24 Dental Screening Dental Screen Date: 09/10/23 HPI Elevated BP HPI Details Pt presents c/o elevated BP for 2 days epigastric discomfort and left- sided sharp chest pain on and off. Patient had sausages from the grill 2 days ago. Patient has not been taking losartan every day, because she forgets occasionally. Patient denies exercise induced chest pain shortness of breath palpitations [facility] Medical History (Updated 02/05/24 @ 14:55 by Yeimi Olivas MD) Abdominal pain Myalgia Chest pain Hyperlipidemia Hand pain Back pain Mammogram normal Constipation GERD (gastroesophageal reflux disease) Vertigo Chronic neck pain Mid-back pain, acute HTN (hypertension) Surgical History History of cholecystectomy H/O colonoscopy History of esophagogastroduodenoscopy (EGD) No pertinent past surgical history Family History Father Cancer Mother Stroke Sister No problems noted. Sister No problems noted. Son No problems noted. Daughter No problems noted. Social History Housing: Apartment Patient Tobacco Use Status: Never used Tobacco e-Cigarette/Vaping Use: Never Used service: No Current occupational status: unemployed Current occupation: rt hand Cognitive needs: No Hearing needs: No Vision needs: No Questionnaire Thrive Questionnaire Date Thrive assessed: 09/10/23 SHAWN-7 AMB Questionnaire SHAWN-7 Date SHAWN - 7 assessed: 09/10/23 Source: Developed by DrsRashaad Reece, Kimberly Almodovar, Mack Hdz and colleagues, with an educational odette from [employer]. Review of Systems Const All systems reviewed & are unremarkable except as noted in HPI and below Eyes Reports no additional complaints Card Reports no additional complaints Resp Reports no additional complaints GI Reports no additional complaints Reports no additional complaints Physical exam (Primary Care) Vital Signs: Last Vital Signs Pulse 84 02/05/24 13:57 BP 136/70 02/05/24 13:57 Pulse Ox 97 02/05/24 13:57 Oxygen Delivery Method Room Air 02/05/24 13:57 BMI result Body Mass Index 24.9 Tobacco/Smoking Status: Tobacco use Status Tobacco use date assessed 02/05/24 02/05/24 14:02 Patient Tobacco Use Status Never used Tobacco 02/05/24 14:02 e-Cigarette/Vaping Use Never Used 02/05/24 14:02 Thrive Assessment: Date of Thrive Assessment Date Thrive assessed 09/10/23 02/05/24 14:02 Const General: no acute distress HENMT Throat: Yes posterior oropharynx normal Eyes General: appearance normal, both eyes and all related structures Resp Effort & Inspection: normal respiratory effort Auscultation: clear to auscultation bilaterally Cardio Rhythm: regular rhythm Heart sounds: S1 normal heart sound present and S2 normal heart sound present GI Inspection: Yes normal to inspection Palpation (GI): Soft to palpation Auscultation: normal bowel sounds Assessment and Plan Assessment & Plan (1) HTN (hypertension): Code(s): I10 - Essential (primary) hypertension Plan: Medication compliance discussed with the patient. Continue losartan 100 mg daily and follow-up in 2 months with a fasting labs (2) Hyperlipidemia: Comment: REFUSED STATINS Code(s): E78.5 - Hyperlipidemia, unspecified Plan: Continue low-cholesterol diet (3) Chest pain: Code(s): R07.9 - Chest pain, unspecified Plan: EKG showed normal sinus rhythm no ST-T changes (4) Abdominal pain: Comment: MRI of liver: absent gallbladder, common duct patent, no intrahepatic biliary ductal dilatation, 1.2 cm simple pancreatic cyst 09/2023 HIDA scan normal 09/2023 Code(s): R10.9 - Unspecified abdominal pain Qualifiers: Abdominal location: epigastric Qualified Code(s): R10.13 - Epigastric pain Plan: Low-fat diet discussed with the patient. Orders: Orders Comprehensive [place]. Panel Fast 2 Months E78.5 - Hyperlipidemia, unspecified, I10 - Essential (primary) hypertension Complete Blood Count Auto Diff 2 Months E78.5 - Hyperlipidemia, unspecified, I10 - Essential (primary) hypertension TSH reflex Free T4 2 Months E78.5 - Hyperlipidemia, unspecified, I10 - Essential (primary) hypertension AMB EKG-In Office Today I10 - Essential (primary) hypertension, R07.9 - Chest pain, unspecified Lipid Panel 2 Months E78.5 - Hyperlipidemia, unspecified, I10 - Essential (chris shabana) hypertension Coding Level of Care Code Est Pt Level 4 (92748) Diagnoses HTN (hypertension) I10 Hyperlipidemia E78.5 Chest pain R07.9 Epigastric pain R10.13 Abdominal location: epigastric
== END 2024-02-05 14:56 | disposition home or self-care (01) ==
PROVIDERS: PCP Internal Medicine; Visit Provider Internal Medicine
DX: I10 Essential (primary) hypertension (principal); E78.5 Hyperlipidemia, unspecified; R07.9 Chest pain, unspecified; R10.13 Epigastric pain
CPT/HCPCS: 99214

== ENCOUNTER 2024-04-15 08:09 | Outpatient (REF) | payer BC, SELFPAY ==
[2024-04-15 10:07] LABS: MANUAL DIFF FLAG NO
[2024-04-15 10:18] LABS: Basophils Percent Auto 0.7 % (0-2); Eosinophils Absolute Auto 0.6 X10*3/uL (0.0-0.4); Eosinophils Percent Auto 10.6 % (0-4); Hematocrit 41.1 % (37.0-47.0); Hemoglobin 13.6 g/dl (12.0-16.0); Imm Gran Abs Auto 0.01 X10*3/uL (0.00-0.03); Imm Gran Pct Auto 0.2 % (0.0-0.4); Lymphocytes Absolute Auto 2.6 X10*3/uL (1.2-4.9); Lymphocytes Percent Auto 42.5 % (20-40); Mean Corpuscular HGB Conc 33.1 g/dl (31.0-35.0); Mean Corpuscular Hemoglobin 29.4 pg (27.0-33.0); Mean Platelet Volume 9.4 fL (9.4-12.3); Monocytes Absolute Auto 0.6 X10*3/uL (0.1-1.2); Monocytes Percent Auto 9.5 % (2-11); Neutrophils Absolute Auto 2.2 x10*3/uL (2.0-8.3); Neutrophils Percent Auto 36.5 % (45-73); Platelet Count 249 X10*3/uL (160-400); Red Blood Count 4.62 X10*6/uL (4.20-5.50); Red Cell Distribution Width 12.3 % (11.0-16.0)
[2024-04-15 10:50] LABS: Alanine Aminotransferase 38 U/L (0-31); Albumin Level 4.1 g/dL (3.5-5.0); Alkaline Phosphatase 73 U/L (39-117); Anion Gap 12 (12-20); Aspartate Amino Transferase 34 U/L (5-31); Bilirubin Total 0.5 mg/dL (0.0-1.0); Blood Urea Nitrogen 13 mg/dL (9-16); Calcium 9.6 mg/dL (8.4-10.2); Carbon Dioxide 28 mmol/L (22-29); Chloride 105 mmol/L (96-108); Cholesterol 255 mg/dL (<200); Estimated Glomerular Filt Rate > 60; Glucose Fasting 100 mg/dL (60-99); HDL Cholesterol 47 mg/dL (>40); LDL Cholesterol Calculated 179 mg/dL (<100); Potassium 4.4 mmol/L (3.3-5.1); Sodium 141 mmol/L (135-145); Triglycerides 146 mg/dL (<150)
[2024-04-15 11:08] LABS: TSH reflex Free T4 1.42 uIU/mL (0.32-4.0)
[2024-04-16 19:08] LABS: Lyme Abs Screen <0.90 index
== END 2024-04-15 08:10 | disposition home or self-care (01) ==
LOC: HO.HMGCLDS 08:09
PROVIDERS: PCP Internal Medicine; Visit Provider Internal Medicine
DX: E78.5 Hyperlipidemia, unspecified (principal); I10 Essential (primary) hypertension; M25.50 Pain in unspecified joint
CPT/HCPCS: 36415; 80053; 80061; 84443; 85025; 86617; 86618

== ENCOUNTER 2024-04-17 07:52 | Outpatient (AMB) | payer BC, SELFPAY ==
--- NOTE | 2024-04-17 08:01 | MHC.PC.OV ---
Vital Signs 04/17/24 08:02 Height 5 ft 2 in Weight 140 lb BMI 25.6 BP 134/80 Blood Pressure Location Lt brachial Position Sitting Pulse 83 Pulse Source Pulse Oximeter Pulse Oximetry (%) 97 Oxygen Delivery Method Room Air Intake Visit Reasons: 2 months Follow up Intake Note: Pt is here today for 2 months follow up visit. Allergies No Known Allergies Allergy (Verified 02/05/24 14:01) Medication List - Last Reconciled 04/17/24 by Yeimi Olivas MD estradiol 0.01%(0.1mg/gram) 1 appful vaginal 3XW famotidine (Pepcid) 20 mg PO BEDTIME losartan 100 mg PO DAILY meclizine 25 mg PO BID PRN pantoprazole 20 mg PO DAILY Tobacco use date assessed: 04/17/24 Fall risk assessment: No Falls in past year Last assessed Fall Risk: 04/17/24 Dental Screening Dental Screen Date: 04/17/24 Did you have a dental visit in the last 12 months?: Yes Did you have a dental problem in the last 6 months where you did not have access to dental care?: No Was dental information given to patient?: Patient has dentist HPI 2 months Follow up HPI Details Pt presents for f/u HTN and GERD, stable on meds. Patient complains of chronic lower back and neck pain bilateral shoulder stiffness worse at night, occasionally wake up the patient. [facility] Medical History Abdominal pain Myalgia Chest pain Hyperlipidemia Hand pain Back pain Mammogram normal Constipation GERD (gastroesophageal reflux disease) Vertigo Chronic neck pain Mid-back pain, acute HTN (hypertension) Surgical History History of cholecystectomy H/O colonoscopy History of esophagogastroduodenoscopy (EGD) No pertinent past surgical history Family History Father Cancer Mother Stroke Sister No problems noted. Sister No problems noted. Son No problems noted. Daughter No problems noted. Social History Housing: Apartment Patient Tobacco Use Status: Never used Tobacco e-Cigarette/Vaping Use: Never Used service: No Current occupational status: unemployed Current occupation: rt hand Cognitive needs: No Hearing needs: No Vision needs: No Questionnaire Thrive Questionnaire Date Thrive assessed: 09/10/23 SHAWN-7 AMB Questionnaire SHAWN-7 Date SHAWN - 7 assessed: 09/10/23 Source: Developed by Drs. Ilia Reece, Kimberly Almodovar, Mack Hdz and colleagues, with an educational odette from [employer]. Review of Systems Const All systems reviewed & are unremarkable except as noted in HPI and below Reports no additional complaints Eyes Reports no additional complaints ENT Reports no additional complaints Card Reports no additional complaints Resp Reports no additional complaints Reports no additional complaints Physical exam (Primary Care) Vital Signs: Last Vital Signs Pulse 83 04/17/24 08:02 BP 134/80 04/17/24 08:02 Pulse Ox 97 04/17/24 08:02 Oxygen Delivery Method Room Air 04/17/24 08:02 BMI result Body Mass Index 25.6 Tobacco/Smoking Status: Tobacco use Status Tobacco use date assessed 04/17/24 04/17/24 08:08 Patient Tobacco Use Status Never used Tobacco 04/17/24 08:02 e-Cigarette/Vaping Use Never Used 04/17/24 08:02 Thrive Assessment: Date of Thrive Assessment Date Thrive assessed 09/10/23 04/17/24 08:02 Const General: no acute distress HENMT Throat: Yes posterior oropharynx normal Resp Effort & Inspection: normal respiratory effort Auscultation: clear to auscultation bilaterally Cardio Rhythm: regular rhythm Heart sounds: S1 normal heart sound present and S2 normal heart sound present GI Inspection: Yes normal to inspection Palpation (GI): Soft to palpation Percussion: Yes normal to percussion Auscultation: normal bowel sounds Back/Spine/Pelvis Other: Reproducible tenderness and muscle spasm in the lower cervical and lumbar region, straight leg rising 90 degrees bilaterally, deep tendon reflexes 2+ bilaterally upper and lower extremities. Coding Level of Care Code Est Pt Level 4 (95246) Diagnoses Arthralgia M25.50 Hyperlipidemia E78.5 HTN (hypertension) I10 Assessment & Plan Assessment & Plan (1) Arthralgia: Code(s): M25.50 - Pain in unspecified joint Category: Medical Plan: Start 300 mg gabapentin q.h.s. regular physical activity and stretching discussed with the patient (2) Hyperlipidemia: Comment: REFUSED STATINS Code(s): E78.5 - Hyperlipidemia, unspecified Category: Medical Plan: Continue low-cholesterol diet patient declined taking statins. She will follow-up in 3 months with a fasting labs before and if cholesterol still elevated she is willing to try Zetia (3) HTN (hypertension): Code(s): I10 - Essential (primary) hypertension Category: Medical Plan: Continue losartan Orders: Orders Lipid Panel 3 Months E78.5 - Hyperlipidemia, unspecified, I10 - Essential (primary) hypertension, M25.50 - Pain in unspecified joint Rheumatoid Factor Today E78.5 - Hyperlipidemia, unspecified, I10 - Essential (primary) hypertension, M25.50 - Pain in unspecified joint Comprehensive [place]. Panel Fast Today E78.5 - Hyperlipidemia, unspecified, I10 - Essential (primary) hypertension, M25.50 - Pain in unspecified joint C Reactive Protein Today E78.5 - Hyperlipidemia, unspecified, I10 - Essential (primary) hypertension, M25.50 - Pain in unspecified joint ELMER Reflex Titer and Pattern Today E78.5 - Hyperlipidemia, unspecified, I10 - Essential (primary) hypertension, M25.50 - Pain in unspecified joint Cyclic Citrullinated Peptide Today E78.5 - Hyperlipidemia, unspecified, I10 - Essential (primary) hypertension, M25.50 - Pain in unspecified joint Medications: New gabapentin 300 mg PO BEDTIME 30 caps 3RF
[2024-04-17 08:02] VITALS: BP 134/80; PULSE 83; O2SAT 97; BMI 25.6
== END 2024-04-17 08:44 | disposition home or self-care (01) ==
PROVIDERS: PCP Internal Medicine; Visit Provider Internal Medicine
DX: M25.50 Pain in unspecified joint (principal); E78.5 Hyperlipidemia, unspecified; I10 Essential (primary) hypertension

== ENCOUNTER → 2024-04-17 07:52 | Outpatient (BNVA) | payer BC, SELFPAY | PROVIDERS: PCP Internal Medicine; Visit Provider Internal Medicine ==

== ENCOUNTER 2024-08-01 12:33 | Outpatient (AMB) ==
[2024-08-01 12:46] VITALS: BP 138/85; BMI 25.8
--- NOTE | 2024-08-01 12:46 | MHC.PC.OV ---
Vital Signs 08/01/24 12:46 Height 5 ft 2 in Weight 141 lb BMI 25.8 BP 138/85 Blood Pressure Location Rt brachial Position Sitting Pulse 83 Pulse Source Pulse Oximeter Temp 98.3 F Temp Source Oral Pulse Oximetry (%) 98 Oxygen Delivery Method Room Air Intake Visit Reasons: Elevated BP Intake Note: Pt is here today for a sick visit. Pt c/o elevated BP and chest discomfort. Pt states that her manufacture changed for her Bp medication. Allergies No Known Allergies Allergy (Verified 08/01/24 12:51) Medication List - Last Reconciled 08/01/24 by Yeimi Olivas MD estradiol 0.01%(0.1mg/gram) 1 appful vaginal 3XW famotidine (Pepcid) 20 mg PO BEDTIME gabapentin 300 mg PO BEDTIME meclizine 25 mg PO BID PRN pantoprazole 20 mg PO DAILY valsartan 160 mg PO BID Tobacco use date assessed: 08/01/24 Fall risk assessment: No Falls in past year Last assessed Fall Risk: 08/01/24 Dental Screening Dental Screen Date: 08/01/24 Did you have a dental visit in the last 12 months?: Yes Did you have a dental problem in the last 6 months where you did not have access to dental care?: No Was dental information given to patient?: Patient has dentist HPI Elevated BP HPI Details Patient complains of increased blood pressure reading since she started taking a different generic brand of losartan last week. Patient also reports stomach upset from the medication. She has been taking Pepcid and omeprazole daily for chronic GERD. Patient denies nausea vomiting hematochezia melena [facility] Medical History Abdominal pain Myalgia Chest pain Hyperlipidemia Hand pain Back pain Mammogram normal Constipation GERD (gastroesophageal reflux disease) Vertigo Chronic neck pain Mid-back pain, acute HTN (hypertension) Surgical History History of cholecystectomy H/O colonoscopy History of esophagogastroduodenoscopy (EGD) No pertinent past surgical history Family History Father Cancer Mother Stroke Sister No problems noted. Sister No problems noted. Son No problems noted. Daughter No problems noted. Social History Housing: Apartment Patient Tobacco Use Status: Never used Tobacco e-Cigarette/Vaping Use: Never Used service: No Current occupational status: unemployed Current occupation: rt hand Cognitive needs: No Hearing needs: No Vision needs: No Questionnaire Thrive Questionnaire Date Thrive assessed: 08/01/24 I am a: Patient What is your living situation today?: I have a steady place to live Within the past 12 months, did the food you bought not last and you didn't have the money to get more?: Never true Within the past 12 months, did you worry whether your food would run out before you got money to buy more?: Never true Do you have trouble paying for medicines?: No Do you have trouble getting transportation to medical appointments?: No Do you have trouble paying your heating and electricity bill?: No Do you have trouble taking care of your child, family member or friend?: No Do you have trouble with day-to-day activities such as bathing, preparing meals, shopping, managing finances, etc.?: No Are you currently unemployed and looking for a job?: No Are you interested in more education?: No Please select the resources that you would like help with: None THRIVE Score: 0 SHAWN-7 AMB Questionnaire SHAWN-7 Date SHAWN - 7 assessed: 08/01/24 Feeling nervous, anxious, or on edge: 0 = Not at all Not being able to stop or control worryin = Not at all Worrying too much about different things: 0 = Not at all Trouble relaxin = Not at all Being so restless that it is hard to sit still: 0 = Not at all Becoming easily annoyed or irritable: 0 = Not at all Feeling afraid as if something awful might happen: 0 = Not at all Total SHAWN-7 score (0-4 normal; 5-9 mild; 10-14 moderate; 15-21 severe): 0 Source: Developed by Drs. Ilia Reece, Kimberly Almodovar, Mack Hdz and colleagues, with an educational odette from [employer]. SHAWN-7 Assessment Billing SHAWN-7 Assessment Tool: SHAWN-7 Assessment 22493 Review of Systems Const All systems reviewed & are unremarkable except as noted in HPI and below Eyes Reports no additional complaints ENT Reports no additional complaints Card Reports no additional complaints Resp Reports no additional complaints GI Reports no additional complaints Reports no additional complaints Physical exam (Primary Care) Vital Signs: Last Vital Signs Temp 98.3 F 08/01/24 12:46 Pulse 83 08/01/24 12:46 Pulse Ox 98 08/01/24 12:46 Oxygen Delivery Method Room Air 08/01/24 12:46 BMI result Body Mass Index 25.8 Tobacco/Smoking Status: Tobacco use Status Tobacco use date assessed 08/01/24 08/01/24 12:56 Patient Tobacco Use Status Never used Tobacco 08/01/24 12:56 e-Cigarette/Vaping Use Never Used 08/01/24 12:56 Thrive Assessment: Date of Thrive Assessment Date Thrive assessed 08/01/24 08/01/24 12:56 Const General: no acute distress HENMT Head: Yes normal to inspection Neck Neck: Yes supple Resp Effort & Inspection: normal respiratory effort Auscultation: clear to auscultation bilaterally Cardio Rhythm: regular rhythm Heart sounds: S1 normal heart sound present and S2 normal heart sound present GI Inspection: Yes normal to inspection Palpation (GI): Soft to palpation Percussion: Yes normal to percussion Coding Level of Care Code Est Pt Level 4 (58127) Diagnoses HTN (hypertension) I10 Hyperthyroidism E05.90 Gastroesophageal reflux disease, unspecified whether esophagitis present K21.9 Esophagitis presence: esophagitis presence not specified Additional Codes SHAWN-7 Assessment Billing - SHAWN-7 Assessment Tool: SHAWN-7 Assessment 69780 ([id number]) Assessment & Plan Assessment & Plan (1) HTN (hypertension): Code(s): I10 - Essential (primary) hypertension Category: Medical Plan: Change losartan to valsartan 160 mg twice a day. Patient will monitor her blood pressure at home. Low-sodium diet regular physical activity stress management discussed with the patient. She will follow-up in 1 month (2) Hyperthyroidism: Code(s): E05.90 - Thyrotoxicosis, unspecified without thyrotoxic crisis or storm Category: Medical Plan: Monitor TSH (3) GERD (gastroesophageal reflux disease): Code(s): K21.9 - Gastro-esophageal reflux disease without esophagitis Category: Medical Qualifiers: Esophagitis presence: esophagitis presence not specified Qualified Code(s): K21.9 - Gastro-esophageal reflux disease without esophagitis Plan: Continue medication anti GERD diet, EKG showed normal sinus rhythm no ST-T changes Orders: Orders Lipid Panel 1 Month E0. - Thyrotoxicosis, unspecified without thyrotoxic crisis or storm, I10 - Essential (primary) hypertension Comprehensive [place]. Panel Fast 1 Month E0. - Thyrotoxicosis, unspecified without thyrotoxic crisis or storm, I10 - Essential (primary) hypertension Complete Blood Count Auto Diff 1 Month E0. - Thyrotoxicosis, unspecified without thyrotoxic crisis or storm, I10 - Essential (primary) hypertension TSH reflex Free T4 1 Month E05. - Thyrotoxicosis, unspecified without thyrotoxic crisis or storm, I10 - Essential (primary) hypertension AMB EKG-In Office Today E05.90 - Thyrotoxicosis, unspecified without thyrotoxic crisis or storm, I10 - Essential (primary) hypertension, R07.9 - Chest pain, unspecified Medications: New valsartan 160 mg PO BID 60 tabs 1RF Discontinued losartan Discontinued Reason: Doctor's Order 100 mg PO DAILY 90 tabs 3RF
== END 2024-08-01 14:26 | disposition home or self-care (01) ==

== ENCOUNTER → 2024-08-01 12:33 | Outpatient (BNVA) | payer BC, SELFPAY | PROVIDERS: PCP Internal Medicine; Visit Provider Internal Medicine | DX: I10 Essential (primary) hypertension (principal); E05.90 Thyrotoxicosis, unspecified without thyrotoxic crisis or storm; K21.9 Gastro-esophageal reflux disease without esophagitis | CPT/HCPCS: 96127 ==

== ENCOUNTER 2024-08-05 08:50 | Outpatient (REF) | payer BC, SELFPAY ==
[2024-08-05 14:47] LABS: Influenza A PCR NEGATIVE (Negative); Influenza B PCR NEGATIVE (Negative); Resp Syncy Virus RNA Qual PCR POSITIVE (Negative); SARS COV2 PCR INHOUSE NEGATIVE (Negative)
--- OUTSIDE RECORDS SUMMARY | 2024-08-05 14:59 | XMS_ITS | Clinical Summary ---
Author Organization [facility] Address [address] [place] [id number] Care Team Providers Care Supervisor Extruding Department Name Role Phone Yeimi Olivas MD Primary Care Provider [phone] Surgical History Surgery Date Site/Laterality Comments CHOLECYSTECTOMY PROCEDURE: HISTORICAL CHOLECYSTECTOMY COLONOSCOPY 06/24/2019 PROCEDURE: HISTORICAL COLONOSCOPY; COMMENT: repeat 5 years UPPER GASTROINTESTINAL ENDOSCOPY 08/26/2019 PROCEDURE: [place] UPPER GI ENDOSCOPY PERFORMED; COMMENT: negative, biopsy pending Medical History Medical History Date Comments HTN (hypertension) DX:HTN (hyper tension) Tubular adenoma 07/25/2019 DX:Tubular adeno ma; COMMENT: 06/12 CN, repeat 5 years Epigastric pain DX:Epigastric pa in Right upper quadrant pain DX:Rig ht upper quadrant pain Straining with stools DX:Straini ng with stools Gassiness DX:Gassiness Internal hemorrhoids DX:Internal hemorrhoids Family History Medical History Relation Name Comments No Known Problems Daughter Other: gallbladder ca Father No Known Problems Maternal Grandfather No Known Problems Maternal Grandmother Coronary artery disease Mother Other: heart Mother No Known Problems Other No Known Problems Paternal Grandfather No Known Problems Paternal Grandmother No Known Problems Sister Breast cancer Neg Hx Colon cancer Neg Hx Ovarian cancer Neg Hx Uterine cancer Neg Hx Relation Name Status Comments Daughter Father Maternal Grandfather Maternal Grandmother Mother Other Paternal Grandfather Paternal Grandmother Sister Social History Tobacco Use Types Packs/Day Years Used Date Smoking Tobacco: Never Smokeless Tobacco: Never Alcohol Use Standard Drinks/Week Comments No 0 (1 standard drink = 0.6 oz pur e alcohol) Comments Unknown Sex and Gender Information Value Date Recorded Sex Assigned at Not on file Legal Sex Female 7:16 AM EST Gender Identity Not on file Sexual Orientation Not on file Obstetrics History Plan of Treatment Health Maintenance Due Date Last Done Comments DTaP,Tdap,and Td Vaccines (1 - Tdap) 1965 Pneumococcal Vaccine: 50+ Years (1 of 1 - PCV) 2008 Zoster Vaccines (1 of 2) 2008 Cholesterol Screening (Lipid Panel) 06/03/2022 Colorectal Cancer Screening: Colonoscopy 06/03/2022 Depression Screening 06/03/2022 Hepatitis C Screening 06/03/2022 Osteoporosis Screening (Bone Density Screening) 06/03/2022 Social Influencers of Health Screening 06/03/2022 Hypertension/CHF/CAD Annual BMP Blood Test 06/10/2022 Falls Risk Assessment 2023 COVID-19 Vaccine ( season) 2024 Influenza Vaccine (#1) 2024 Breast Cancer Screening 03/20/2024 03/20/20, 03/16/2021, 03/09/2020, Additional history exists RSV Immunization Patients 60+ Years Old (1 - 1-dose 75+ series) 2033 HIB Vaccines Aged Out No longer eligi ble based on patient's age to complete this topic HPV Vaccines Aged Out No longer eligi ble based on patient's age to complete this topic Hepatitis A Vaccines Aged Out No long er eligible based on patient's age to complete this topic Hepatitis B Vaccines Aged Out No long er eligible based on patient's age to complete this topic IPV Vaccines Aged Out No longer eligi ble based on patient's age to complete this topic MMR Vaccines Aged Out No longer eligi ble based on patient's age to complete this topic Meningococcal ACWY Vaccine Aged Out N o longer eligible based on patient's age to complete this topic Meningococcal B Vacine Aged Out No lo nger eligible based on patient's age to complete this topic RSV Immunization Patients Under 20 months Aged Out No longer eligible based on patient's age to complete this topic Varicella Vaccines Aged Out No longer eligible based on patient's age to complete this topic Procedures Procedure Name Priority Date/Time Associated Diagnosis Comments SCREENING MAMMOGRAPHY BI 2-VIEW BREAST INC CAD Routine 03/20/2022 8:10 AM EDT Encounter for screening mammogram for malignant neoplasm of breast from Last 3 Months or Most Recently Relevant to Health Maintenance Results * SCREENING MAMMOGRAPHY BI 2-VIEW BREAST INC CAD (03/20/2022 8:10 AM EDT) Anatomical Region Laterality Modality Radiographic [place] ging 03/16/2021 7:33 AM EDT Narrative 03/21/2022 8:05 AM EDT This is a summary report. The complete report is available in the patient's medical record. If you cannot access the medical record, please contact the sending organization for a detailed fax or copy. Exam: Screening mammogram Findings: Digital bilateral full-field screening mammography is performed with tomosynthesis and interpreted with the aid of computer-aided detection. ??Comparison is made with 03/16/2021 and as far back as 02/20/2018. Breast parenchyma is composed of scattered fibroglandular densities. ??No new suspicious mass, architectural distortion, or suspicious calcifications. Impression: No mammographic evidence of malignancy. BI-RADS 1 - negative Procedure Note Gloria Grider MD - 06/13/2022 This is a summary report. The complete report is available in thepatient's medical record. If you cannot access the medical record, pleasecontact the sending organization for a detailed fax or copy. Exam: Screening mammogram Findings: Digital bilateral full-field screening mammography is performedwith tomosynthesis and interpreted with the aid of computer-aideddetection. Comparison is made with 03/16/2021 and as far back as02/20/2018. Breast parenchyma is composed of scattered fibroglandular densities. Nonew suspicious mass, architectural distortion, or suspiciouscalcifications. Impression: No mammographic evidence of malignancy. BI-RADS 1 - negative Yeimi Olivas MD IMG XR PROCEDURES Final Result from Last 3 Months or Most Recently Relevant to Health Maintenance Care Teams Supervisor Extruding Department Relationship Specialty Start Date End Date Yeimi Olivas MD PCP - General Internal Medicine 03/09/20
== END 2024-08-05 08:51 | disposition home or self-care (01) ==
LOC: HO.LNP 08:50
PROVIDERS: Visit Provider Physician Assistant
DX: J06.9 Acute upper respiratory infection, unspecified (principal)
CPT/HCPCS: 0241U

== ENCOUNTER 2024-08-05 08:50 | Outpatient (AMB) | payer BC, SELFPAY ==
--- NOTE | 2024-08-05 09:27 | MHC.OFFWIV ---
Intake Vital Signs 08/05/24 09:30 Weight 143 lb BP 130/90 H Blood Pressure Location Lt brachial Position Sitting Pulse 79 Pulse Source Pulse Oximeter Temp 98 F Temp Source Oral Pulse Oximetry (%) 97 Oxygen Delivery Method Room Air Intake Visit Reasons: EP dry cough, headache, sore throat Intake Note: Patient here for dry cough and headache that started yesterday. Patient Tobacco Use Status: Never used Tobacco Allergies No Known Allergies Allergy (Verified 08/05/24 09:31) Do you need a note to return to daycare/school/sports/work: No HPI HPI Comments History of Present Illness Details History - The patient is a 64 year old female presenting with a raspy voice and sore throat. - She reports that symptoms began the day before with a dry cough and recurrent headaches. - She denies shortness of breath, wheezing, fevers, or sinus and ear pain. - No recent vaccinations for influenza have been received. - The patient mentioned engaging in strenuous activity such as shoveling snow recently. - She has not utilized any medications except for juice prior to this visit. - She was hesitant about viral testing for flu, COVID, and RSV. - Patient is asking for an antibiotic as her juice isn't working for her one day cough Physical Exam General: Cooperative, healthy appearing, comfortable and no acute distress Orientation/consciousness: Patient oriented x3 Limitations: No limitations Head: Normal to inspection Ears: Hearing grossly normal bilaterally, external ears normal and TM's normal bilaterally Nose: Normal external nose present, Normal nares present and No nasal discharge present Face and sinus: Normal facial exam and Yes sinuses nontender Mouth: Normal oral and palatal mucosa present and moist mucous membranes Throat: Yes tonsils normal, Yes uvula midline. Posterior oropharynx erythema Eyes: Appearance normal, both eyes and all related structures Neck: Normal visual inspection Respiratory: Clear to auscultation bilaterally. Normal respiratory effort, able to speak in complete sentences, Actively coughing, no respiratory distress, not tachypneic, no tripod positioning and no use of accessory muscles Cardiovascular: Regular rate and rhythm. Normal S1 and S2 Skin: No rashes or lesions noted Neuro: Patient oriented x3 Extremities: Normal to inspection and Yes no clubbing, cyanosis or edema [facility] Medical History Abdominal pain Myalgia Chest pain Hyperlipidemia Hand pain Back pain Mammogram normal Constipation GERD (gastroesophageal reflux disease) Vertigo Chronic neck pain Mid-back pain, acute HTN (hypertension) Surgical History History of cholecystectomy H/O colonoscopy History of esophagogastroduodenoscopy (EGD) No pertinent past surgical history Family History Father Cancer Mother Stroke Sister No problems noted. Sister No problems noted. Son No problems noted. Daughter No problems noted. Social History Housing: Apartment Patient Tobacco Use Status: Never used Tobacco e-Cigarette/Vaping Use: Never Used service: No Current occupational status: unemployed Current occupation: rt hand Cognitive needs: No Hearing needs: No Vision needs: No Review of Systems Const All systems reviewed & are unremarkable except as noted in HPI and below Physical Exam Vital Signs: Last Vital Signs Temp 98 F 08/05/24 09:30 Pulse 79 08/05/24 09:30 BP 130/90 H 08/05/24 09:30 Pulse Ox 97 08/05/24 09:30 Oxygen Delivery Method Room Air 08/05/24 09:30 Assessment & Plan Assessment & Plan (1) Viral URI: Code(s): J06.9 - Acute upper respiratory infection, unspecified Plan: VSS, pt well appearing and PE unremarkable. Laryngitis likely viral but patient is insistent on being given an antibiotic and was very upset I didn't prescribe one immediately for her one day of cough and raspy voice. We did Flu,Covid and RSV testing, if these are all negative, I will send a Zpak though this is not likely to help her viral illness. The patient's concerns of a raspy voice and sore throat, likely pointing towards acute pharyngitis, were explored with an emphasis on a viral origin. Management is focused on symptom relief. Recommended measures include the use of [id number] decongestants and home remedies such as warm salt water gargles alongside hot tea with honey. The discussion also covered the limited role of antibiotics unless subsequent diagnostics indicate bacterial involvement. No immediate signs of significant respiratory compromise such as shortness of breath or wheezing were detected, aligning the care plan towards supportive therapy. Regular updates or attendance is advised if the condition progresses or doesn't resolve naturally. Patient was informed and verbally consented to the use of an ambient scribe for clinic note documentation during this visit Coding Level of Care Code Est Pt Level 3 (72589) Diagnoses Viral URI J06.9
[2024-08-05 09:30] VITALS: BP 130/90; PULSE 79; TEMP 36.6; O2SAT 97
== END 2024-08-05 09:53 | disposition home or self-care (01) ==
PROVIDERS: PCP Internal Medicine; Visit Provider Physician Assistant
DX: J06.9 Acute upper respiratory infection, unspecified (principal)

== ENCOUNTER 2024-08-18 10:31 | Outpatient (AMB) | payer BC, SELFPAY ==
[2024-08-18 10:48] VITALS: BP 160/100; PULSE 102; RESP 20; TEMP 36.8; O2SAT 97; BMI 26.0
--- NOTE | 2024-08-18 10:48 | MHC.PC.OV ---
Vital Signs 08/18/24 10:48 08/18/24 11:59 Height 5 ft 2 in Weight 142 lb BMI 26.0 BP 160/100 H 138/88 Blood Pressure Location Lt brachial Rt brachial Position Sitting Sitting Respiration 20 Pulse 102 H Pulse Source Pulse Oximeter Temp 98.2 F Temp Source Oral Pulse Oximetry (%) 97 Oxygen Delivery Method Room Air Intake Visit Reasons: Follow up after walk in still sick Intake Note: Pt is here today for a follow up visit after being seen in a walk in. Pt states that she finished antibiotic Zpak, and she was feeling betetr but Fridat she started with symptoms again, cough chest congestion elevated BP. Pt states that she was at [facility] as she passed out. Allergies No Known Allergies Allergy (Verified 08/18/24 10:51) Medication List - Last Reconciled 08/18/24 by Yeimi Olivas MD estradiol 0.01%(0.1mg/gram) 1 appful vaginal 3XW famotidine (Pepcid) 20 mg PO BEDTIME gabapentin 300 mg PO BEDTIME meclizine 25 mg PO BID PRN pantoprazole 20 mg PO DAILY valsartan 160 mg PO BID Tobacco use date assessed: 08/18/24 Fall risk assessment: No Falls in past year Last assessed Fall Risk: 08/18/24 Dental Screening Dental Screen Date: 08/01/24 HPI Follow up after walk in still sick HPI Details Pt c/o one-week body aches, left-sided chest pain and abd pain on and off, heartburn, decreased appetite. Patient had 1 episode of diarrhea this morning. Pt took Z otoniel 1 week ago for upper respiratory infection. She still has residual cough but denies pleurisy shortness for breath fever chills. Patient reports elevated blood pressure at home despite taking valsartan 160 mg twice a day. [facility] Medical History Abdominal pain Myalgia Chest pain Hyperlipidemia Hand pain Back pain Mammogram normal Constipation GERD (gastroesophageal reflux disease) Vertigo Chronic neck pain Mid-back pain, acute HTN (hypertension) Surgical History History of cholecystectomy H/O colonoscopy History of esophagogastroduodenoscopy (EGD) No pertinent past surgical history Family History Father Cancer Mother Stroke Sister No problems noted. Sister No problems noted. Son No problems noted. Daughter No problems noted. Social History Housing: Apartment Patient Tobacco Use Status: Never used Tobacco e-Cigarette/Vaping Use: Never Used service: No Current occupational status: unemployed Current occupation: rt hand Cognitive needs: No Hearing needs: No Vision needs: No Questionnaire Thrive Questionnaire Date Thrive assessed: 08/01/24 SHAWN-7 AMB Questionnaire SHAWN-7 Date SHAWN - 7 assessed: 08/01/24 Source: Developed by Drs. Ilia Reece, Kimberly Almodovar, Mack Hdz and colleagues, with an educational odette from [employer]. Review of Systems Const All systems reviewed & are unremarkable except as noted in HPI and below ENT Reports no additional complaints Card Reports no additional complaints Resp Reports no additional complaints GI Reports no additional complaints Reports no additional complaints Physical exam (Primary Care) Vital Signs: Last Vital Signs Temp 98.2 F 08/18/24 10:48 Pulse 102 H 08/18/24 10:48 Resp 20 08/18/24 10:48 BP 160/100 H 08/18/24 10:48 Pulse Ox 97 08/18/24 10:48 Oxygen Delivery Method Room Air 08/18/24 10:48 BMI result Body Mass Index 26.0 Tobacco/Smoking Status: Tobacco use Status Tobacco use date assessed 08/18/24 08/18/24 10:52 Patient Tobacco Use Status Never used Tobacco 08/18/24 10:48 e-Cigarette/Vaping Use Never Used 08/18/24 10:48 Thrive Assessment: Date of Thrive Assessment Date Thrive assessed 08/01/24 08/18/24 10:48 Const General: no acute distress HENMT Head: Yes normal to inspection Ears: TM's normal bilaterally Mouth: Normal oral and palatal mucosa present Neck Neck: Yes no lymphadenopathy and Yes supple Resp Effort & Inspection: normal respiratory effort Auscultation: clear to auscultation bilaterally Cardio Rhythm: regular rhythm Heart sounds: S1 normal heart sound present and S2 normal heart sound present GI Inspection: Yes normal to inspection Palpation (GI): Soft to palpation Percussion: Yes normal to percussion Auscultation: normal bowel sounds Coding Level of Care Code Est Pt Level 4 (47029) Diagnoses Epigastric pain R10.13 Abdominal location: epigastric Cough R05.9 HTN (hypertension) I10 Assessment & Plan Assessment & Plan (1) Abdominal pain: Comment: MRI of liver: absent gallbladder, common duct patent, no intrahepatic biliary ductal dilatation, 1.2 cm simple pancreatic cyst 09/2023 HIDA scan normal 09/2023 Code(s): R10.9 - Unspecified abdominal pain Category: Medical Qualifiers: Abdominal location: epigastric Qualified Code(s): R10.13 - Epigastric pain Plan: Check blood work continue pantoprazole and add Carafate before meals. (2) Cough: Code(s): R05.9 - Cough, unspecified Category: Medical Plan: Check chest x-ray supportive care discussed with the patient (3) HTN (hypertension): Code(s): I10 - Essential (primary) hypertension Category: Medical Plan: Add 2.5 mg of amlodipine to valsartan follow-up in 1 week. EKG showed normal sinus rhythm no ST-T changes Orders: Orders Comprehensive Met. Panel Today R10.13 - Epigastric pain Urine Culture Today R10.13 - Epigastric pain Complete Blood Count Auto Diff Today R10.13 - Epigastric pain Erythrocyte Sedimentation Rate Today R10.13 - Epigastric pain UA w Microscopic Today R10.13 - Epigastric pain XR chest 1V Today R05.9 - Cough, unspecified Medications: New sucralfate (Carafate) 1 g PO BID 60 tabs 0RF amlodipine 2.5 mg PO DAILY 30 tabs 1RF
--- OUTSIDE RECORDS SUMMARY | 2024-08-18 11:53 | XMS_ITS | Clinical Summary ---
Author Organization [facility] Address [address] [place] [address] Phone Care Team Providers Care Bingo Floater Name Role Phone Yeimi Olivas MD Primary Care Provider [phone] Allergies No known active allergies Encounters Date Type Department Care Team Description 08/09/2024 10:31 PM EST - 08/10/2024 5:06 AM EST Emergency [facility] Emergency [address] [place] [id number] Kayli Love MD Hyponatremia (Primary Dx); Viral syndrome; Near syncope Discharge Disposition: Home or Self Care from Last 3 Months Surgical History Surgery Date Site/Laterality Comments CHOLECYSTECTOMY PROCEDURE: HISTORICAL CHOLECYSTECTOMY COLONOSCOPY 06/24/2019 PROCEDURE: HISTORICAL COLONOSCOPY; COMMENT: repeat 5 years UPPER GASTROINTESTINAL ENDOSCOPY 08/26/2019 PROCEDURE: AK UPPER GI ENDOSCOPY PERFORMED; COMMENT: negative, biopsy [...] Information Value Date Recorded Sex Assigned at Female 08/09/2024 10:48 PM EST Legal Sex Female 7:16 AM EST Gender Identity Female 08/09/2024 10:48 PM EST Sexual Orientation Straight 08/09/2024 10 :48 PM EST Obstetrics History Last Filed Vital Signs Vital Sign Reading Time Taken Comments Blood Pressure 138/99 08/10/2024 4:38 AM EST Pulse 73 08/10/2024 4:38 AM EST Temperature 36.5 ??C (97.7 ??F) 08/10/2024 4:38 AM ES T Respiratory Rate 19 08/10/2024 4:38 AM EST Oxygen Saturation 93% 08/10/2024 4:38 AM EST Inhaled Oxygen Concentration - - Weight 63.5 kg (140 lb) 08/09/2024 1:29 PM EST Height 157.5 cm (5' 2 ) 08/09/2024 1:29 PM EST Body Mass Index 25.61 08/09/2024 1:29 PM EST Plan of Treatment Health Maintenance Due Date Last Done Comments DTaP,Tdap,and Td Vaccines (1 - Tdap) 1977 Pneumococcal Vaccine: 50+ Years (1 of 1 - PCV) 2008 Zoster Vaccines (1 of 2) 2008 Cholesterol Screening (Lipid Panel) 06/03/2022 Colorectal Cancer Screening: Colonoscopy 06/03/2022 Depression Screening 06/03/2022 Hepatitis C Screening 06/03/2022 Medicare Annual Wellness Visit 06/03/2022 Osteoporosis Screening (Bone Density Screening) 06/03/2022 Social Influencers of Health Screening 06/03/2022 Falls Risk Assessment 2023 COVID-19 Vaccine ( - season) 2024 Influenza Vaccine (#1) 2024 Breast Cancer Screening 03/20/2024 03/20/20 22, 03/16/2021, 03/09/2020, Additional history exists Hypertension/CHF/CAD Annual BMP Blood Test 08/09/2025 08/09/2024 RSV Immunization Patients 60+ Years Old (1 [...] Procedure Name Priority Date/Time Associated Diagnosis Comments ECG ANNOTATED 08/11/2024 ECG ANNOTATED 08/11/2024 CT HEAD WO CONTRAST STAT 08/10/2024 2 :35 AM EST XR CHEST 2 VIEWS STAT 08/09/2024 4:13 PM EST TROPONIN I HIGH SENSITIVITY STAT 08/09/2024 4:07 PM EST ECG 12-LEAD STAT 08/09/2024 4:00 PM EST CBC WITH AUTO DIFFERENTIAL STAT 08/09/2024 1:50 PM EST B-TYPE NATRIURETIC PEPTIDE STAT 08/09/2024 1:50 PM EST MAGNESIUM STAT 08/09/2024 1:50 PM EST LIPASE STAT 08/09/2024 1:50 PM EST COMPREHENSIVE METABOLIC PANEL STAT 08/09/2024 1:50 PM EST CBC AND DIFFERENTIAL STAT 08/09/2024 1:50 PM EST TROPONIN I HIGH SENSITIVITY STAT 08/09/2024 1:50 PM EST ECG 12-LEAD STAT 08/09/2024 1:37 PM EST SCREENING MAMMOGRAPHY BI 2-VIEW BREAST INC CAD Routine 03/20/2022 8:10 AM EDT Encounter for screening mammogram for malignant neoplasm of breast from Last 3 Months or Most Recently Relevant to Health Maintenance Results * ECG-Annotated (08/11/2024) Only the most recent of2 resultswithin the time period is included. us Provider Onbase MD ECG ORDERABLES Final Result * CT Head wo Contrast (08/10/2024 2:35 AM EST) Anatomical Region Laterality Modality Head and Neck Computed Tomogra phy 08/10/2024 3:25 AM EST Impressions 08/10/2024 3:25 AM EST 1. No acute intracranial findings. 2. Additional findings as described. This document has been electronically signed by: Paolo Avila MD on 08/10/2024 03:25:08 Narrative 08/10/2024 3:25 AM EST INDICATION: Dizziness, non-specific CT head without contrast Comparison: None Findings: Scattered subcortical and periventricular hypoattenuation, likely in keeping with chronic small vessel ischemic disease. Parenchymal volume loss with compensatory prominence of the ventricles and CSF spaces. No acute territorial infarction, intracranial hemorrhage, midline shift or hydrocephalus. Mucosal thickening throughout the paranasal sinuses. The orbits are within normal limits. There is no acute fracture. Procedure Note Paolo Avila MD - 08/10/2024 INDICATION: Dizziness, non-specific CT head without contrast Comparison: None Findings: Scattered subcortical and periventricular hypoattenuation, likely in keeping with chronic small vessel ischemic disease. Parenchymal volume loss with compensatory prominence of the ventricles and CSF spaces. No acute territorial infarction, intracranial hemorrhage, midline shift or hydrocephalus. Mucosal thickening throughout the paranasal sinuses. The orbits are within normal limits. There is no acute fracture. IMPRESSION: 1. No acute intracranial findings. 2. Additional findings as described. This document has been electronically signed by: Paolo Avila MD on 08/10/2024 03:25:08 Kayli Love MD IMG CT PROCEDURES Final Result * XR Chest 2 Views (08/09/2024 4:13 PM EST) Anatomical Region Laterality Modality Body Radiographic [place] ging 08/09/2024 4:15 PM EST Impressions 08/09/2024 4:16 PM EST FINDINGS/IMPRESSION: NO ACUTE FINDINGS. Normal heart size and pulmonary vascularity. ??Lungs are clear and costophrenic angles are sharp. ??No acute osseous abnormality. -------- FINAL REPORT -------- Dictated By: Lidia Reyes Dictated Date: 08/09/2024 16:15 ET Assigned Physician: Lidia Reyes Reviewed and Electronically Signed By: Lidia Reyes Signed Date: 08/09/2024 16:16 ET Workstation ID: [id number] Transcribed By: Self Edit Transcribed Date: 08/09/2024 16:15 ET Narrative 08/09/2024 4:16 PM EST XR CHEST 2 VIEWS INDICATION: chest pain TECHNIQUE: XR CHEST 2 VIEWS COMPARISON: 10/08/2023 Procedure Note Lidia Reyes MD - 08/09/2024 XR CHEST 2 VIEWS INDICATION: chest pain TECHNIQUE: XR CHEST 2 VIEWS COMPARISON: 10/08/2023 IMPRESSION: FINDINGS/IMPRESSION: NO ACUTE FINDINGS. Normal heart size and pulmonary vascularity. Lungs are clear andcostophrenic angles are sharp. No acute osseous abnormality. -------- FINAL REPORT -------- Dictated By: Lidia Reyes Dictated Date: 08/09/2024 16:15 ET Assigned Physician: Lidia Reyes Reviewed and Electronically Signed By: Lidia Reyes Signed Date: 08/09/2024 16:16 ET Workstation ID: [id number] Transcribed By: Self Edit Transcribed Date: 08/09/2024 16:15 ET Kayli Love MD IMG XR PROCEDURES Final Result * Troponin I high sensitivity (08/09/2024 4:07 PM EST) Only the most recent of2 resultswithin the time period is included. [facility] High Sensitivity Troponin I 4 <=54 ng/L LAB CHEMISTRY METHOD 08/09/2024 4:42 PM EST [facility] Blood Venous blood specimen / Unknown Venipuncture / Unknown 08/09/2024 4:07 PM EST 08/09/2024 4:15 PM EST Narrative [facility] - 08/09/2024 4:42 PM EST High levels of biotin in samples may falsely decrease hsTroponin values. ??Use caution when interpreting hsTroponin results in patients taking biotin who exhibit renal impairment (eGFR <60) or in patients taking more than 20 mg/day of biotin. Kayli Love MD LAB BLOOD ORDERABLES Fin al Result [facility] [address] [place] [address], * ECG 12 lead (08/09/2024 4:00 PM EST) Only the most recent of2 resultswithin the time period is included. [facility] Ventricular Rate ECG 75 BPM GEMUSE Atrial Rate 75 BPM GEMUSE P-R Interval 144 ms GEMUSE QRS Duration 94 ms GEMUSE Q-T Interval 392 ms GEMUSE QTc 437 ms GEMUSE P Wave [place] 65 degrees GEMUSE R [place] 58 degrees GEMUSE T [place] 17 degrees GEMUSE ECG Interpretation Normal sinus rhythm Normal ECG When compared with ECG of 09-AUG-2024 13:37, (unconfirmed) No significant change was found Confirmed by KENYETTA CULP ([id number]) on 08/10/2024 6:18:39 PM GEMUSE 08/09/2024 4:00 PM EST 08/10/2024 6:18 PM EST us Kayli Love MD ECG ORDERABLES Final Re sult GEMUSE * CBC auto differential (08/09/2024 1:50 PM EST) WBC 5.9 4.8 - 10.8 K/mcL LAB HEMETOLOGY METHOD 08/09/2024 2:09 PM [facility] RBC 4.50 3.80 - 4.80 M/mcL LAB HEMETOLOGY METHOD 08/09/2024 2:09 PM [facility] Hemoglobin 13.2 11.5 - 16.0 g/dL LAB HEMETOLOGY METHOD 08/09/2024 2:09 PM [facility] Hematocrit 38.9 35.0 - 47.0 % LAB HEMETOLOGY METHOD 08/09/2024 2:09 PM [facility] MCV 86.8 79.0 - 98.0 FL LAB HEMETOLOGY METHOD 08/09/2024 2:09 PM [facility] MCH 29.5 27.0 - 32.0 pcg LAB HEMETOLOGY METHOD 08/09/2024 2:09 PM [facility] MCHC 33.9 32.0 - 37.0 g/dL LAB HEMETOLOGY METHOD 08/09/2024 2:09 PM [facility] RDW 11.8 11.0 - 15.0 % LAB HEMETOLOGY METHOD 08/09/2024 2:09 PM [facility] Platelets 202 130 - 400 K/mcL LAB HEMETOLOGY METHOD 08/09/2024 2:09 PM [facility] MPV 9.2 7.0 - 11.0 FL LAB HEMETOLOGY METHOD 08/09/2024 2:09 PM [facility] NRBC 0.0 <1.0 % LAB HEMETOLOGY METHOD 08/09/2024 2:09 PM [facility] NRBC Absolute 0.00 <0.10 K/mcL LAB HEMETOLOGY METHOD 08/09/2024 2:09 PM [facility] Neutrophils Relative 61.1 % LAB HEMETOLOGY METHOD 08/09/2024 2:09 PM [facility] Lymphocytes Relative 26.0 % LAB HEMETOLOGY METHOD 08/09/2024 2:09 PM [facility] Monocytes Relative 10.8 % LAB HEMETOLOGY METHOD 08/09/2024 2:09 PM [facility] Eosinophils Relative 1.3 % LAB HEMETOLOGY METHOD 08/09/2024 2:09 PM [facility] Basophils Relative 0.5 % LAB HEMETOLOGY METHOD 08/09/2024 2:09 PM [facility] Immature Granulocytes Relative 0.3 % LAB HEMETOLOGY METHOD 08/09/2024 2:09 PM [facility] Neutrophils Absolute 3.62 1.50 - 7.00 K/mcL LAB HEMETOLOGY METHOD 08/09/2024 2:09 PM [facility] Lymphocytes Absolute 1.54 1.00 - 5.00 K/mcL LAB HEMETOLOGY METHOD 08/09/2024 2:09 PM [facility] Monocytes Absolute 0.64 0.20 - 1.00 K/mcL LAB HEMETOLOGY METHOD 08/09/2024 2:09 PM [facility] Eosinophils Absolute 0.08 0.00 - 0.50 K/mcL LAB HEMETOLOGY METHOD 08/09/2024 2:09 PM [facility] Basophils Absolute 0.03 0.00 - 0.20 K/mcL LAB HEMETOLOGY METHOD 08/09/2024 2:09 PM [facility] Immature Granulocytes Absolute 0.02 0.00 - 0.03 K/mcL LAB HEMETOLOGY METHOD 08/09/2024 2:09 PM EST [facility] Blood Venous blood specimen / Unknown Venipuncture / Unknown 08/09/2024 1:50 PM EST 08/09/2024 1:55 PM EST Kayli Love MD LAB BLOOD ORDERABLES Fin al Result Performing Organization Address City/[facility]/ZIP Co de Phone Number [facility] [address] [place] [address], [place] [phone] * B-type natriuretic peptide (08/09/2024 1:50 PM EST) BNP 14 <=100 pcg/mL LAB CHEMISTRY METHOD 08/09/2024 2:46 PM EST [facility] Blood Venous blood specimen / Unknown Venipuncture / Unknown 08/09/2024 1:50 PM EST 08/09/2024 1:56 PM EST Kayli Love MD LAB BLOOD ORDERABLES Fin al Result Performing Organization Address [facility] Co de Phone Number [facility] [address] [place] [address], [place] [phone] * Magnesium (08/09/2024 1:50 PM EST) Magnesium 2.0 1.9 - 2.6 mg/dL LAB CHEMISTRY METHOD 08/09/2024 2:21 PM EST [facility] Blood Venous blood specimen / Unknown Venipuncture / Unknown 08/09/2024 1:50 PM EST 08/09/2024 1:55 PM EST Kayli Love MD LAB BLOOD ORDERABLES Fin al Result Performing Organization Address City/[facility]/ZIP Co de Phone Number [facility] [address] [place] [address], [place] [phone] * Lipase (08/09/2024 1:50 PM EST) Pathologist [facility] Lipase 63 13 - 75 unit/L LAB CHEMISTRY METHOD 08/09/2024 2:21 PM [facility] Blood Venous blood specimen / Unknown Venipuncture / Unknown 08/09/2024 1:50 PM EST 08/09/2024 1:55 PM EST us Kayli Love MD LAB BLOOD ORDERABLES Fin al Result [facility] [address] [place] [address], [place] [phone] * (ABNORMAL) Comprehensive metabolic panel (08/09/2024 1:50 PM EST) Pathologist [facility] Sodium 128(L) 133 - 145 mmol/L LAB CHEMISTRY METHOD 08/09/2024 2:21 PM [facility] Potassium 3.6 3.5 - 5.5 mmol/L LAB CHEMISTRY METHOD 08/09/2024 2:21 PM [facility] Chloride 95(L) 96 - 110 mmol/L LAB CHEMISTRY METHOD 08/09/2024 2:21 PM [facility] CO2 27 21 - 32 mmol/L LAB CHEMISTRY METHOD 08/09/2024 2:21 PM [facility] Anion Gap 6 3 - 11 LAB CHEMISTRY METHOD 08/09/2024 2:21 PM [facility] Glucose 109(H) 70 - 100 mg/dL LAB CHEMISTRY METHOD 08/09/2024 2:21 PM [facility] BUN 8 5 - 25 mg/dL LAB CHEMISTRY METHOD 08/09/2024 2:21 PM [facility] Creatinine 0.77 0.50 - 1.10 mg/dL LAB CHEMISTRY METHOD 08/09/2024 2:21 PM [facility] eGFR 85 >=60 mL/min/1. 73m2 LAB CHEMISTRY METHOD 08/09/2024 2:21 PM [facility] Comment:Calculation based on the??Chronic Kidney Disease Epidemiology Collaboration (CKD-EPI) equation refit??without adjustment for race. BUN/Creatinine Ratio 10.4 LAB CHEMISTRY METHOD 08/09/2024 2:21 PM [facility] Calcium 8.6 8.5 - 10.5 mg/dL LAB CHEMISTRY METHOD 08/09/2024 2:21 PM [facility] AST (SGOT) 43(H) 10 - 42 unit/L LAB CHEMISTRY METHOD 08/09/2024 2:21 PM [facility] ALT (SGPT) 91(H) 10 - 60 unit/L LAB CHEMISTRY METHOD 08/09/2024 2:21 PM [facility] Alkaline Phosphatase 91 42 - 121 unit/L LAB CHEMISTRY METHOD 08/09/2024 2:21 PM [facility] Total Protein 7.4 6.0 - 8.0 g/dL LAB CHEMISTRY METHOD 08/09/2024 2:21 PM [facility] Albumin 3.7 3.2 - 5.0 g/dL LAB CHEMISTRY METHOD 08/09/2024 2:21 PM [facility] Total Bilirubin 0.5 0.0 - 1.4 mg/dL LAB CHEMISTRY METHOD 08/09/2024 2:21 PM [facility] Blood Venous blood specimen / Unknown Venipuncture / Unknown 08/09/2024 1:50 PM EST 08/09/2024 1:55 PM EST us Kayli Love MD LAB BLOOD ORDERABLES Fin al Result [facility] [address] [place] [address], * SCREENING MAMMOGRAPHY BI 2-VIEW BREAST INC [...] or Most Recently Relevant to Health Maintenance Insurance MEDICARE MEDICAID - [place] Care Teams Bingo Floater Relationship Specialty Start Date End Date Yeimi Olivas MD [address] [place] [address] PCP - General Internal Medicine 03/09/20
--- OUTSIDE RECORDS SUMMARY | 2024-08-18 11:53 | XMS_ITS | Encounter Summary ---
Author Organization [facility] Address [id number] [place] [id number] Care Team Providers Care Barrel Header Name Role Phone Yeimi Olivas MD Primary Care Provider [phone] Reason for Visit * Reason Comments Syncope X2 today Encounter Details Date Type Department Care Team (Late st Contact Info) Description 08/09/2024 10:31 PM EST - 08/10/2024 5:06 AM EST Emergency [facility] Emergency [address] [place] [phone] Kayli Love MD [address] [place] [address] Hyponatremia (Primary Dx); Viral syndrome; Near syncope Discharge Disposition: Home or Self Care Social History Tobacco Use Types Packs/Day Years [...] Orientation Straight 08/09/2024 10 :48 PM EST documented as of this encounter Last Filed Vital Signs Vital Sign Reading [...] Mass Index 25.61 08/09/2024 1:29 PM EST documented in this encounter Discharge Instructions * Discharge Instructions* Kayli Love MD - 08/10/2024 4:54 AM EST Thank you for coming to the [facility] Emergency Department today. Our entire team works together to provide you with the best care possible. Examination and treatment you received in the emergency department has been rendered on an EMERGENCY basis only. It is not intended to be a substitute for or an effort to provide complete medical care. You should follow-up with your primary care provider. Please report to your physician any new or remaining problems, because it is impossible to recognize and treat all elements of injury or illness in a single emergency department visit. If you do not have a primary care provider or require a referral, call one of the following numbersto arrange follow-up: [facility] [phone] [facility] [phone] [facility] [phone] [facility] [phone] [facility] [phone] In the event that you're unable to obtain a followup appointment in a timely fashion, OR you are not getting any better, OR you are getting worse, OR you develop any symptoms that concern you, pleasereturn here immediately for further evaluation. The emergency department is open 24 hours a day, 7 days a week. Your discharge report is based on information that was available when you were in the emergency department. The x-ray readings are preliminary and will be reviewed by a radiologist in the next 24 hours. If there is a discrepancy you will be notified by phone. * Attachments The following attachments cannot be sent through Care Everywhere. * Dehydration (Gabonese) * Hyponatremia (Gabonese) documented in this encounter Discharge Disposition Disposition Code Departure Means Destination Comment s Home or Self Care documented in this encounter Progress Notes * Artie Sanchez RN - 08/09/2024 7:44 PM EST Pt ambulatory up to [facility] multiple times asking about ER wait time * Morales Pino RN - 08/09/2024 1:38 PM EST All extremities 5/5 strength equal smile no difficulty with speech ambulating with steady gait Morales Pino RN 08/09/24 1338 * Morales Pino RN - 08/09/2024 1:28 PM EST Pt has had cold symptoms cough couple of days on zithromax. Today had high bp at home has chest pressure and had two syncopal episode. * Kayli Love MD - 08/09/2024 1:24 PM EST Emergency Medicine Note Patient Name: Felisha Everett Initial Evaluation: 08/09/2024 : 1960 Patient's PCP: Yeimi Olivas MD Emergency Physician: Kayli Love MD History of Present Illness Chief Complaint: Chief Complaint Patient presents with Syncope X2 today HPI: 64-year-old female with history of hypertension presenting after a near syncopal episode that occurred at home today. Patient states she has been dealing with a cough, sinus congestion, head fullness ongoing for the last 3 to 4 days. Admits today she was sitting in bed, got up to go to the bathroom when she felt lightheaded. Thought she might pass out so she laid down on the floor. Symptoms resolved when she did that. Describes some associated numbness in her left hand but no weakness ofher limbs. She did not fall or hit her head. Describes subjective fevers and chills. Cough is nonproductive. Denies nausea, vomiting, diarrhea, lower extremity edema or pain, chest pain or difficulty breathing. ROS: I have performed a ROS with the pertinent positives and negatives documented in the history ofpresent illness. Previous History Past Medical History: Diagnosis Date Epigastric pain DX:Epigastric pain Gassiness DX:Gassiness HTN (hypertension) DX:HTN (hypertension) Internal hemorrhoids DX:Internal hemorrhoids Right upper quadrant pain DX:Right upper quadrant pain Straining with stools DX:Straining with stools Tubular adenoma 07/25/2019 DX:Tubular adenoma; COMMENT: 06/12 CN, repeat 5 years Past Surgical History: Procedure Laterality Date CHOLECYSTECTOMY PROCEDURE: HISTORICAL CHOLECYSTECTOMY COLONOSCOPY 06/24/2019 PROCEDURE: HISTORICAL COLONOSCOPY; COMMENT: repeat 5 years UPPER GASTROINTESTINAL ENDOSCOPY 08/26/2019 PROCEDURE: [place] UPPER GI ENDOSCOPY PERFORMED; COMMENT: negative, biopsy pending Social History Tobacco Use Smoking status: Never Smokeless tobacco: Never Substance Use Topics Alcohol use: No Drug use: No Family History Problem Relation Name Age of Onset Coronary artery disease Mother 86.00 Other (Other: heart) Mother Other (Other: gallbladder ca) Father No Known Problems Sister No Known Problems Daughter No Known Problems Maternal Grandmother No Known Problems Maternal Grandfather No Known Problems Paternal Grandmother No Known Problems Paternal Grandfather No Known Problems Other Breast cancer Neg Hx Ovarian cancer Neg Hx Uterine cancer Neg Hx Colon cancer Neg Hx has No Known Allergies. No current facility-administered medications on file prior to encounter. No current outpatient medications on file prior to encounter. Physical Exam ED Triage Vitals Temp Heart Rate Resp BP 08/09/24 1329 08/09/24 1329 08/09/24 1329 08/09/24 1329 36.8 ??C (98.2 ??F) 97 18 (!) 192/94 SpO2 Temp Source Heart Rate Source Patient Position 08/09/24 1329 08/09/24 1329 08/09/24 1831 08/09/24 1831 97 % Oral Other (Comment) Sitting BP Location FiO2 (%) 08/09/24 1831 -- Left arm;Upper GENERAL: Ill-Appearing, appears uncomfortable. SKIN: Normal skin color for ethnicity, warm, dry, no rashes noted. HEENT: Normocephalic, atraumatic, no stridor, dry mucous membranes, dentition intact, EOMI. NECK: Soft, supple, full ROM, midline structures nontender, no step-offs, no deformities, no lymphadenopathy. CHEST: Heart regular rhythm, no murmurs, symmetric chest rise and fall. PULMONARY: Clear to auscultation bilaterally, diminished at the bases, no labored breathing, no wheezes/rhales/rhonchi. ABDOMINAL: Soft, nondistended, nontender, positive bowel sounds in all quadrants. : Deferred. MUSCULOSKELETAL: Normal tone, full range of motion, no deformities, no peripheral edema. NEURO: Alert and oriented x3, CN II through XII intact, equal strength and sensation bilateral upper and lower extremities, no focal neurologic deficits. PSYCHIATRIC: Flat affect, fluid speech, good eye contact and appropriate demeanor. Results Labs Reviewed COMPREHENSIVE METABOLIC PANEL - Abnormal Result Value Sodium 128 (*) Potassium 3.6 Chloride 95 (*) CO2 27 Anion Gap 6 Glucose 109 (*) BUN 8 Creatinine 0.77 eGFR 85 BUN/Creatinine Ratio 10.4 Calcium 8.6 AST (SGOT) 43 (*) ALT (SGPT) 91 (*) Alkaline Phosphatase 91 Total Protein 7.4 Albumin 3.7 Total Bilirubin 0.5 TROPONIN I HIGH SENSITIVITY - Normal High Sensitivity Troponin I 3 Narrative: High levels of biotin in samples may falsely decrease hsTroponin values. Use caution when interpreting hsTroponin results in patients taking biotin who exhibit renal impairment (eGFR <60) or in patients taking more than 20 mg/day of biotin. TROPONIN I HIGH SENSITIVITY - Normal High Sensitivity Troponin I 4 Narrative: High levels of biotin in samples may falsely decrease hsTroponin values. Use caution when interpreting hsTroponin results in patients taking biotin who exhibit renal impairment (eGFR <60) or in patients taking more than 20 mg/day of biotin. LIPASE - Normal Lipase 63 MAGNESIUM - Normal Magnesium 2.0 B-TYPE NATRIURETIC PEPTIDE - Normal BNP 14 CBC AND DIFFERENTIAL Narrative: The following orders were created for panel order CBC and differential. Procedure Abnormality Status --------- ------ CBC auto differential[[id number]] Final result Please view results for these tests on the individual orders. CBC WITH AUTO DIFFERENTIAL WBC 5.9 RBC 4.50 Hemoglobin 13.2 Hematocrit 38.9 MCV 86.8 MCH 29.5 MCHC 33.9 RDW 11.8 Platelets 202 MPV 9.2 NRBC 0.0 NRBC Absolute 0.00 Neutrophils Relative 61.1 Lymphocytes Relative 26.0 Monocytes Relative 10.8 Eosinophils Relative 1.3 Basophils Relative 0.5 Immature Granulocytes Relative 0.3 Neutrophils Absolute 3.62 Lymphocytes Absolute 1.54 Monocytes Absolute 0.64 Eosinophils Absolute 0.08 Basophils Absolute 0.03 Immature Granulocytes Absolute 0.02 Abnormal Labs Reviewed COMPREHENSIVE METABOLIC PANEL - Abnormal; Notable for the following components: Result Value Sodium 128 (*) Chloride 95 (*) Glucose 109 (*) AST (SGOT) 43 (*) ALT (SGPT) 91 (*) All other components within normal limits CT Head wo Contrast Final Result 1. No acute intracranial findings. 2. Additional findings as described. This document has been electronically signed by: Paolo Avila MD on 08/10/2024 03:25:08 XR Chest 2 Views Final Result FINDINGS/IMPRESSION: NO ACUTE FINDINGS. Normal heart size and pulmonary vascularity. Lungs are clear and costophrenic angles are sharp. No acute osseous abnormality. -------- FINAL REPORT -------- Dictated By: Lidia Reyes Dictated Date: 08/09/2024 16:15 ET Assigned Physician: Lidia Reyes Reviewed and Electronically Signed By: Lidia Reyes Signed Date: 08/09/2024 16:16 ET Workstation ID: [id number] Transcribed By: Self Edit Transcribed Date: 08/09/2024 16:15 ET I have discussed the incidental/abnormal imaging and/or lab abnormalities with the patient and haveinstructed them the need for further evaluation and workup with their primary care doctor. I have provided the patient with a paper copy of the abnormality. The laboratory results, imaging results and other diagnostic exam results were reviewed in the EMR. EKG Interpretation Critical Care Time None ? Medical Decision Making Patient presents today with chief complaint of syncope. I considered multiple diagnoses of etiologyincluding most importantly cardiac arrhythmia, seizure, subarachnoid hemorrhage, vascular catastrophe such as AAA, as well as other more common etiologies such as a vasovagal syncope and orthostasis.Broad-based work- up was initiated to evaluate etiology including head CT and chest x-rays. Patient's workup has been reassuring. No evidence of acute intracranial process, pneumonia or lab abnormality. She does have some hyponatremia which I suspect is secondary to slight dehydration in the setting of viral syndrome. Plan for IV fluids, discharge home with outpatient follow-up. Patient understands and agrees with plan for treatment. Medications sodium chloride 0.9 % bolus 1,000 mL (0 mL intravenous Stopped 08/10/24 0504) Clinical Impressions as of 08/10/24 0817 Hyponatremia Viral syndrome Near syncope Procedures Procedures Diagnosis 1. Hyponatremia 2. Viral syndrome 3. Near syncope Disposition Discharge ED Prescriptions None Physician Attestation Kayli Love MD 08/10/24 0225 Kayli Love MD 08/10/24 0817 documented in this encounter Plan of Treatment Not on file documented as of this encounter Procedures Procedure Name Priority Date/Time Associated Diagnosis Comments ECG ANNOTATED 08/11/2024 ECG ANNOTATED 08/11/2024 CT HEAD WO CONTRAST STAT 08/10/2024 2 :35 AM EST XR CHEST 2 VIEWS STAT 08/09/2024 4:13 PM EST TROPONIN I HIGH SENSITIVITY STAT 08/09/2024 4:07 PM EST ECG 12-LEAD STAT 08/09/2024 4:00 PM EST TROPONIN I HIGH SENSITIVITY STAT 08/09/2024 1:50 PM EST CBC WITH AUTO DIFFERENTIAL STAT 08/09/2024 1:50 PM EST CBC AND DIFFERENTIAL STAT 08/09/2024 1:50 PM EST B-TYPE NATRIURETIC PEPTIDE STAT 08/09/2024 1:50 PM EST MAGNESIUM STAT 08/09/2024 1:50 PM EST LIPASE STAT 08/09/2024 1:50 PM EST COMPREHENSIVE METABOLIC PANEL STAT 08/09/2024 1:50 PM EST ECG 12-LEAD STAT 08/09/2024 1:37 PM EST documented in this encounter Results * ECG-Annotated (08/11/2024) us Provider Onbase MD ECG ORDERABLES Final Result * ECG-Annotated (08/11/2024) us Provider Onbase MD ECG ORDERABLES Final [...] document has been electronically signed by: Paolo vAila MD on 08/10/2024 03:25:08 Kayli Love MD [...] Signed Date: 08/09/2024 16:16 ET Workstation ID: [id number] Transcribed By: Self Edit Transcribed Date: 08/09/2024 [...] Signed Date: 08/09/2024 16:16 ET Workstation ID: [id number] Transcribed By: Self Edit Transcribed Date: 08/09/2024 16:15 ET us Kayli Love MD IMG XR PROCEDURES Final Result * Troponin I high sensitivity (08/09/2024 4:07 PM EST) Pathologist [facility] [place] High Sensitivity Troponin I 4 <=54 ng/L LAB CHEMISTRY METHOD 08/09/2024 4:42 PM EST [facility] Blood Venous blood specimen / Unknown Venipuncture / Unknown 08/09/2024 4:07 PM EST 08/09/2024 4:15 PM EST Narrative [facility] - 08/09/2024 4:42 PM EST High levels of biotin in samples may falsely decrease hsTroponin values. ??Use caution when interpreting hsTroponin results in patients taking biotin who exhibit renal impairment (eGFR <60) or in patients taking more than 20 mg/day of biotin. Kayli Love MD LAB BLOOD ORDERABLES Fin al Result Performing Organization Address [facility]/ZIP Co de Phone Number [facility] [address] [place] [address], [place] [phone] * ECG 12 lead (08/09/2024 4:00 PM EST) Ventricular Rate ECG 75 BPM GEMUSE Atrial Rate 75 BPM GEMUSE P-R Interval 144 ms GEMUSE QRS Duration 94 ms GEMUSE Q-T Interval 392 ms GEMUSE QTc 437 ms GEMUSE P Wave [place] 65 degrees GEMUSE R [place] 58 degrees GEMUSE T [place] 17 degrees GEMUSE ECG Interpretation Normal sinus rhythm Normal ECG When compared with ECG of 09-AUG-2024 13:37, (unconfirmed) No significant change was found Confirmed by KENYETTA CULP ([id number]) on 08/10/2024 6:18:39 PM GEMUSE 08/09/2024 4:00 PM EST 08/10/2024 6:18 PM EST Kayli Love MD ECG ORDERABLES Final Re sult GEMUSE * CBC auto differential (08/09/2024 1:50 PM EST) Pathologist [facility] [place] WBC 5.9 4.8 - 10.8 K/[facility] HEMETOLOGY METHOD 08/09/2024 2:09 PM EST [facility] RBC 4.50 3.80 - 4.80 M/[facility] HEMETOLOGY METHOD 08/09/2024 2:09 PM [facility] Hemoglobin 13.2 11.5 - 16.0 g/dL LAB HEMETOLOGY METHOD 08/09/2024 2:09 PM [facility] Hematocrit 38.9 35.0 - 47.0 % LAB HEMETOLOGY METHOD 08/09/2024 2:09 PM [facility] MCV 86.8 79.0 - 98.0 FL LAB HEMETOLOGY METHOD 08/09/2024 2:09 PM [facility] MCH 29.5 27.0 - 32.0 pcg LAB HEMETOLOGY METHOD 08/09/2024 2:09 PM [facility] MCHC 33.9 32.0 - 37.0 g/dL LAB HEMETOLOGY METHOD 08/09/2024 2:09 PM [facility] RDW 11.8 11.0 - 15.0 % LAB HEMETOLOGY METHOD 08/09/2024 2:09 PM [facility] Platelets 202 130 - 400 K/mcL LAB HEMETOLOGY METHOD 08/09/2024 2:09 PM [facility] MPV 9.2 7.0 - 11.0 FL LAB HEMETOLOGY METHOD 08/09/2024 2:09 PM [facility] NRBC 0.0 <1.0 % LAB HEMETOLOGY METHOD 08/09/2024 2:09 PM [facility] NRBC Absolute 0.00 <0.10 K/mcL LAB HEMETOLOGY METHOD 08/09/2024 2:09 PM [facility] Neutrophils Relative 61.1 % LAB HEMETOLOGY METHOD 08/09/2024 2:09 PM [facility] Lymphocytes Relative 26.0 % LAB HEMETOLOGY METHOD 08/09/2024 2:09 PM [facility] Monocytes Relative 10.8 % LAB HEMETOLOGY METHOD 08/09/2024 2:09 PM [facility] Eosinophils Relative 1.3 % LAB HEMETOLOGY METHOD 08/09/2024 2:09 PM [facility] Basophils Relative 0.5 % LAB HEMETOLOGY METHOD 08/09/2024 2:09 PM [facility] Immature Granulocytes Relative 0.3 % LAB HEMETOLOGY METHOD 08/09/2024 2:09 PM [facility] Neutrophils Absolute 3.62 1.50 - 7.00 K/mcL LAB HEMETOLOGY METHOD 08/09/2024 2:09 PM [facility] Lymphocytes Absolute 1.54 1.00 - 5.00 K/mcL LAB HEMETOLOGY METHOD 08/09/2024 2:09 PM [facility] Monocytes Absolute 0.64 0.20 - 1.00 K/mcL LAB HEMETOLOGY METHOD 08/09/2024 2:09 PM EST [facility] Eosinophils Absolute 0.08 0.00 - 0.50 K/mcL LAB HEMETOLOGY METHOD 08/09/2024 2:09 PM [facility] Basophils Absolute 0.03 0.00 - 0.20 K/mcL LAB HEMETOLOGY METHOD 08/09/2024 2:09 PM [facility] Immature Granulocytes Absolute 0.02 0.00 - 0.03 K/mcL LAB HEMETOLOGY METHOD 08/09/2024 2:09 PM [facility] Blood Venous blood specimen / Unknown Venipuncture / Unknown 08/09/2024 1:50 PM EST 08/09/2024 1:55 PM EST us Kayli Love MD LAB BLOOD ORDERABLES Fin al Result [facility] [address] [place] [address], * B-type natriuretic peptide (08/09/2024 1:50 PM EST) BNP 14 <=100 pcg/mL LAB CHEMISTRY METHOD 08/09/2024 2:46 PM EST [facility] Blood Venous blood specimen / Unknown Venipuncture / Unknown 08/09/2024 1:50 PM EST 08/09/2024 1:56 PM EST Kayli Love MD LAB BLOOD ORDERABLES Fin al Result [facility] [address] [place] [address], [place] [phone] * Magnesium (08/09/2024 1:50 PM EST) [facility] Magnesium 2.0 1.9 - 2.6 mg/dL LAB CHEMISTRY METHOD 08/09/2024 2:21 PM EST [facility] Blood Venous blood specimen / Unknown Venipuncture / Unknown 08/09/2024 1:50 PM EST 08/09/2024 1:55 PM EST Kayli Love MD LAB BLOOD ORDERABLES Fin al Result Performing Organization Address City/[facility]/ZIP Co de Phone Number [facility] [address] [place] [address], [place] [phone] * Lipase (08/09/2024 1:50 PM EST) [facility] Lipase 63 13 - 75 unit/L LAB CHEMISTRY METHOD 08/09/2024 2:21 PM EST [facility] Blood Venous blood specimen / Unknown Venipuncture / Unknown 08/09/2024 1:50 PM EST 08/09/2024 1:55 PM EST Kayli Love MD LAB BLOOD ORDERABLES Fin al Result [facility] [address] [place] [address], [place] [phone] * (ABNORMAL) Comprehensive metabolic panel (08/09/2024 1:50 PM EST) Sodium 128(L) 133 - 145 mmol/L LAB CHEMISTRY METHOD 08/09/2024 2:21 PM EST [facility] Potassium 3.6 3.5 - 5.5 mmol/L LAB CHEMISTRY METHOD 08/09/2024 2:21 PM [facility] Chloride 95(L) 96 - 110 mmol/L LAB CHEMISTRY METHOD 08/09/2024 2:21 PM [facility] CO2 27 21 - 32 mmol/L LAB CHEMISTRY METHOD 08/09/2024 2:21 PM [facility] Anion Gap 6 3 - 11 LAB CHEMISTRY METHOD 08/09/2024 2:21 PM [facility] Glucose 109(H) 70 - 100 mg/dL LAB CHEMISTRY METHOD 08/09/2024 2:21 PM [facility] BUN 8 5 - 25 mg/dL LAB CHEMISTRY METHOD 08/09/2024 2:21 PM [facility] Creatinine 0.77 0.50 - 1.10 mg/dL LAB CHEMISTRY METHOD 08/09/2024 2:21 PM [facility] eGFR 85 >=60 mL/min/1. 73m2 LAB CHEMISTRY METHOD 08/09/2024 2:21 PM [facility] Comment:Calculation based on the??Chronic Kidney Disease Epidemiology Collaboration (CKD-EPI) equation refit??without adjustment for race. BUN/Creatinine Ratio 10.4 LAB CHEMISTRY METHOD 08/09/2024 2:21 PM [facility] Calcium 8.6 8.5 - 10.5 mg/dL LAB CHEMISTRY METHOD 08/09/2024 2:21 PM [facility] AST (SGOT) 43(H) 10 - 42 unit/L LAB CHEMISTRY METHOD 08/09/2024 2:21 PM EST [facility] ALT (SGPT) 91(H) 10 - 60 unit/L LAB CHEMISTRY METHOD 08/09/2024 2:21 PM EST [facility] Alkaline Phosphatase 91 42 - 121 unit/L LAB CHEMISTRY METHOD 08/09/2024 2:21 PM EST [facility] Total Protein 7.4 6.0 - 8.0 g/dL LAB CHEMISTRY METHOD 08/09/2024 2:21 PM EST [facility] Albumin 3.7 3.2 - 5.0 g/dL LAB CHEMISTRY METHOD 08/09/2024 2:21 PM [facility] Total Bilirubin 0.5 0.0 - 1.4 mg/dL LAB CHEMISTRY METHOD 08/09/2024 2:21 PM EST [facility] Blood Venous blood specimen / Unknown Venipuncture / Unknown 08/09/2024 1:50 PM EST 08/09/2024 1:55 PM EST us Kayli Love MD LAB BLOOD ORDERABLES Fin al Result [facility] [address] [place] [address], * Troponin I high sensitivity (08/09/2024 1:50 PM EST) High Sensitivity Troponin I 3 <=54 ng/L LAB CHEMISTRY METHOD 08/09/2024 2:34 PM EST [facility] Blood Venous blood specimen / Unknown Venipuncture / Unknown 08/09/2024 1:50 PM EST 08/09/2024 1:55 PM EST Narrative [facility] - 08/09/2024 2:34 PM EST High levels of biotin in samples may falsely decrease hsTroponin values. ??Use caution when interpreting hsTroponin results in patients taking biotin who exhibit renal impairment (eGFR <60) or in patients taking more than 20 mg/day of biotin. Kayli Love MD LAB BLOOD ORDERABLES Fin al Result Performing Organization Address City/[facility]/ZIP Co de Phone Number [facility] [address] [place] [address], [place] [phone] * ECG 12 lead (08/09/2024 1:37 PM EST) Ventricular Rate ECG 83 BPM GEMUSE Atrial Rate 83 BPM GEMUSE P-R Interval 150 ms GEMUSE QRS Duration 96 ms GEMUSE Q-T Interval 364 ms GEMUSE QTc 427 ms GEMUSE P Wave [place] 69 degrees GEMUSE R [place] 58 degrees GEMUSE T [place] 10 degrees GEMUSE ECG Interpretation Normal sinus rhythm Possible Left atrial enlargement Incomplete right bundle branch block Borderline ECG When compared with ECG of 08-OCT-2023 10:16, No significant change was found Confirmed by KENYETTA CULP ([id number]) on 08/10/2024 6:16:21 PM GEMUSE 08/09/2024 1:37 PM EST 08/10/2024 6:16 PM EST Kayli Love MD ECG ORDERABLES Final Re sult Performing Organization Address [facility] Co de Phone Number GEMUSE documented in this encounter Visit Diagnoses Diagnosis Hyponatremia- Primary Hyposmolality and/or hyponatremia Viral syndrome Unspecified viral infection, in conditions classified elsewhere and of unspecified site Near syncope documented in this encounter Administered Medications Inactive Administered Medications - up to 3 most recent administrations Medication Order MAR Action Action Date Dose Rate Site sodium chloride 0.9 % bolus 1,000 mL 1,000 mL, intravenous, at 2,000 mL/hr, Administer over 30 Minutes, Once, On 08/10/24 at 0204, For 1 dose New Bag 08/10/2024 3:02 AM EST 1,000 mL 2000 mL/hr documented in this encounter Active and Recently Administered Medications Times are shown in EST. Scheduled Medication Order 08/08/2024 08/09/2024 08/10/2024 sodium chloride 0.9 % bolus 1,000 mL (COMPLETED) 1,000 mL, intravenous, at 2,000 mL/hr, Administer over 30 Minutes, Once, On 08/10/24 at 0204, For 1 dose 0302 (New Bag - Prov ider: Kenyetta Shea, [phone])[id number] (Stopped - Provider: Chaz Winston RN) documented in this encounter Orders Medications Ordered That Roge ht Not Have Been Administered Count Last Ordered Date First Ordered Date sodium chloride 0.9 % bolus 1,000 mL 1 07/26 documented in this encounter Care Teams Barrel Header Relationship Specialty Start Date End Date Yeimi Olivas MD [address] [place] [address] PCP - General Internal Medicine 03/09/20 documented as of this encounter
[2024-08-18 11:59] VITALS: BP 138/88
== END 2024-08-18 12:04 | disposition home or self-care (01) ==
PROVIDERS: PCP Internal Medicine; Visit Provider Internal Medicine
DX: R10.13 Epigastric pain (principal); R05.9 Cough, unspecified; I10 Essential (primary) hypertension

== ENCOUNTER 2024-08-18 10:31 | Outpatient (REF) | payer BC, SELFPAY ==
--- OUTSIDE RECORDS SUMMARY | 2024-08-18 13:44 | XMS_ITS | Clinical Summary ---
Author Organization [facility] Address [address] [place] [address] Phone Care Team Providers Care Board Winder Name Role Phone Yeimi Olivas MD Primary Care Provider [phone] Allergies No known active allergies Encounters Date Type Department Care Team Description 08/09/2024 10:31 PM EST - 08/10/2024 5:[address] [facility] Emergency [address] [place] [id number] Kayli Love MD Hyponatremia (Primary Dx); Viral syndrome; Near syncope Discharge Disposition: Home or Self Care from Last 3 Months Surgical History Surgery Date Site/Laterality Comments CHOLECYSTECTOMY PROCEDURE: HISTORICAL CHOLECYSTECTOMY COLONOSCOPY 06/24/2019 PROCEDURE: HISTORICAL COLONOSCOPY; COMMENT: repeat 5 years UPPER GASTROINTESTINAL ENDOSCOPY 08/26/2019 PROCEDURE: [place] UPPER GI ENDOSCOPY PERFORMED; COMMENT: negative, biopsy [...] Signed Date: 08/09/2024 16:16 ET Workstation ID: [id number] Transcribed By: Self Edit Transcribed Date: 08/09/2024 [...] Signed Date: 08/09/2024 16:16 ET Workstation ID: [id number] Transcribed By: Self Edit Transcribed Date: 08/09/2024 16:15 ET Kayli Love MD IMG XR PROCEDURES Final Result * Troponin I high sensitivity (08/09/2024 4:07 PM EST) Only the most recent of2 resultswithin the time period is included. [facility] High Sensitivity Troponin I 4 <=54 ng/L LAB CHEMISTRY METHOD 08/09/2024 4:42 PM EST [facility] Blood Venous blood specimen / Unknown Venipuncture / Unknown 08/09/2024 4:07 PM EST 08/09/2024 4:15 PM EST Narrative [facility] - 08/09/2024 4:42 PM EST High levels of biotin in samples may falsely decrease hsTroponin values. ??Use caution when interpreting hsTroponin results in patients taking biotin who exhibit renal impairment (eGFR <60) or in patients taking more than 20 mg/day of biotin. Kayli Love MD LAB BLOOD ORDERABLES Fin al Result [facility] [address] [place] [address], * ECG 12 lead (08/09/2024 4:00 PM EST) Only the most recent of2 resultswithin the time period is included. [facility] Ventricular Rate ECG 75 BPM GEMUSE Atrial Rate 75 BPM GEMUSE P-R Interval 144 ms GEMUSE QRS Duration 94 ms GEMUSE Q-T Interval 392 ms GEMUSE QTc 437 ms GEMUSE P Wave [place] 65 degrees GEMUSE R [place] 58 degrees GEMUSE T [place] 17 degrees GEMUSE ECG Interpretation Normal sinus [...] K/mcL LAB HEMETOLOGY METHOD 08/09/2024 2:09 PM [facility] RBC 4.50 3.80 - 4.80 M/mcL LAB HEMETOLOGY METHOD 08/09/2024 2:09 PM [facility] Hemoglobin 13.2 11.5 - 16.0 g/dL LAB HEMETOLOGY METHOD 08/09/2024 2:09 PM [facility] Hematocrit 38.9 35.0 - 47.0 % LAB HEMETOLOGY METHOD 08/09/2024 2:09 PM [facility] MCV 86.8 79.0 - 98.0 FL LAB HEMETOLOGY METHOD 08/09/2024 2:09 PM [facility] MCH 29.5 27.0 - 32.0 pcg LAB HEMETOLOGY METHOD 08/09/2024 2:09 PM [facility] MCHC 33.9 32.0 - 37.0 g/dL LAB HEMETOLOGY METHOD 08/09/2024 2:09 PM [facility] RDW 11.8 11.0 - 15.0 % LAB HEMETOLOGY METHOD 08/09/2024 2:09 PM [facility] Platelets 202 130 - 400 K/mcL LAB HEMETOLOGY METHOD 08/09/2024 2:09 PM [facility] MPV 9.2 7.0 - 11.0 FL LAB HEMETOLOGY METHOD 08/09/2024 2:09 PM [facility] NRBC 0.0 <1.0 % LAB HEMETOLOGY METHOD 08/09/2024 2:09 PM [facility] NRBC Absolute 0.00 <0.10 K/mcL LAB HEMETOLOGY METHOD 08/09/2024 2:09 PM [facility] Neutrophils Relative 61.1 % LAB HEMETOLOGY METHOD 08/09/2024 2:09 PM [facility] Lymphocytes Relative 26.0 % LAB HEMETOLOGY METHOD 08/09/2024 2:09 PM [facility] Monocytes Relative 10.8 % LAB HEMETOLOGY METHOD 08/09/2024 2:09 PM [facility] Eosinophils Relative 1.3 % LAB HEMETOLOGY METHOD 08/09/2024 2:09 PM [facility] Basophils Relative 0.5 % LAB HEMETOLOGY METHOD 08/09/2024 2:09 PM [facility] Immature Granulocytes Relative 0.3 % LAB HEMETOLOGY METHOD 08/09/2024 2:09 PM [facility] Neutrophils Absolute 3.62 1.50 - 7.00 K/mcL LAB HEMETOLOGY METHOD 08/09/2024 2:09 PM [facility] Lymphocytes Absolute 1.54 1.00 - 5.00 K/mcL LAB HEMETOLOGY METHOD 08/09/2024 2:09 PM [facility] Monocytes Absolute 0.64 0.20 - 1.00 K/mcL LAB HEMETOLOGY METHOD 08/09/2024 2:09 PM [facility] Eosinophils Absolute 0.08 0.00 - 0.50 K/mcL LAB HEMETOLOGY METHOD 08/09/2024 2:09 PM [facility] Basophils Absolute 0.03 0.00 - 0.20 K/mcL LAB HEMETOLOGY METHOD 08/09/2024 2:09 PM [facility] Immature Granulocytes Absolute 0.02 0.00 - 0.03 K/mcL LAB HEMETOLOGY METHOD 08/09/2024 2:09 PM EST [facility] Blood Venous blood specimen / Unknown Venipuncture / Unknown 08/09/2024 1:50 PM EST 08/09/2024 1:55 PM EST Kayli Love MD LAB BLOOD ORDERABLES Fin al Result Performing Organization Address City/[facility]/ZIP Co de Phone Number [facility] [address] [place] [address], [place] [phone] * B-type natriuretic peptide (08/09/2024 1:50 PM EST) BNP 14 <=100 pcg/mL LAB CHEMISTRY METHOD 08/09/2024 2:46 PM EST [facility] Blood Venous blood specimen / Unknown Venipuncture / Unknown 08/09/2024 1:50 PM EST 08/09/2024 1:56 PM EST Kayli Love MD LAB BLOOD ORDERABLES Fin al Result Performing Organization Address [facility] Co de Phone Number [facility] [address] [place] [address], [place] [phone] * Magnesium (08/09/2024 1:50 PM EST) Magnesium 2.0 1.9 - 2.6 mg/dL LAB CHEMISTRY METHOD 08/09/2024 2:21 PM EST [facility] Blood Venous blood specimen / Unknown Venipuncture / Unknown 08/09/2024 1:50 PM EST 08/09/2024 1:55 PM EST Kayli Love MD LAB BLOOD ORDERABLES Fin al Result Performing Organization Address City/[facility]/ZIP Co de Phone Number [facility] [address] [place] [address], [place] [phone] * Lipase (08/09/2024 1:50 PM EST) Pathologist [facility] Lipase 63 13 - 75 unit/L LAB CHEMISTRY METHOD 08/09/2024 2:21 PM [facility] Blood Venous blood specimen / Unknown Venipuncture / Unknown 08/09/2024 1:50 PM EST 08/09/2024 1:55 PM EST us Kayli Love MD LAB BLOOD ORDERABLES Fin al Result [facility] [address] [place] [address], [place] [phone] * (ABNORMAL) Comprehensive metabolic panel (08/09/2024 1:50 PM EST) Pathologist [facility] Sodium 128(L) 133 - 145 mmol/L LAB CHEMISTRY METHOD 08/09/2024 2:21 PM [facility] Potassium 3.6 3.5 - 5.5 mmol/L LAB CHEMISTRY METHOD 08/09/2024 2:21 PM [facility] Chloride 95(L) 96 - 110 mmol/L LAB CHEMISTRY METHOD 08/09/2024 2:21 PM [facility] CO2 27 21 - 32 mmol/L LAB CHEMISTRY METHOD 08/09/2024 2:21 PM [facility] Anion Gap 6 3 - 11 LAB CHEMISTRY METHOD 08/09/2024 2:21 PM [facility] Glucose 109(H) 70 - 100 mg/dL LAB CHEMISTRY METHOD 08/09/2024 2:21 PM [facility] BUN 8 5 - 25 mg/dL LAB CHEMISTRY METHOD 08/09/2024 2:21 PM [facility] Creatinine 0.77 0.50 - 1.10 mg/dL LAB CHEMISTRY METHOD 08/09/2024 2:21 PM [facility] eGFR 85 >=60 mL/min/1. 73m2 LAB CHEMISTRY METHOD 08/09/2024 2:21 PM [facility] Comment:Calculation based on the??Chronic Kidney Disease Epidemiology Collaboration (CKD-EPI) equation refit??without adjustment for race. BUN/Creatinine Ratio 10.4 LAB CHEMISTRY METHOD 08/09/2024 2:21 PM [facility] Calcium 8.6 8.5 - 10.5 mg/dL LAB CHEMISTRY METHOD 08/09/2024 2:21 PM [facility] AST (SGOT) 43(H) 10 - 42 unit/L LAB CHEMISTRY METHOD 08/09/2024 2:21 PM [facility] ALT (SGPT) 91(H) 10 - 60 unit/L LAB CHEMISTRY METHOD 08/09/2024 2:21 PM [facility] Alkaline Phosphatase 91 42 - 121 unit/L LAB CHEMISTRY METHOD 08/09/2024 2:21 PM [facility] Total Protein 7.4 6.0 - 8.0 g/dL LAB CHEMISTRY METHOD 08/09/2024 2:21 PM [facility] Albumin 3.7 3.2 - 5.0 g/dL LAB CHEMISTRY METHOD 08/09/2024 2:21 PM [facility] Total Bilirubin 0.5 0.0 - 1.4 mg/dL LAB CHEMISTRY METHOD 08/09/2024 2:21 PM [facility] Blood Venous blood specimen / Unknown Venipuncture / Unknown 08/09/2024 1:50 PM EST 08/09/2024 1:55 PM EST us Kayli Love MD LAB BLOOD ORDERABLES Fin al Result [facility] [address] [place] [address], * SCREENING MAMMOGRAPHY BI 2-[employer] [...] Insurance MEDICARE [place]ICAID - [place] Care Teams Board Winder Relationship Specialty Start Date End Date Yeimi Olivas MD [address] [place] [address] PCP - General Internal Medicine 03/09/20
--- OUTSIDE RECORDS SUMMARY | 2024-08-18 13:45 | XMS_ITS | Data Portability ---
Author Organization [facility], , [facility] Address [address] [place] [address] Assessment No assessment recorded. Plan of Treatment Reminders Order Date Submit Date Provider Last Modified By Organization Details Last Modified Time Details Appointments None record ed. Lab None record ed. Referral None record ed. Procedures None record ed. Surgeries None record ed. Imaging None record ed. Medication Orders None record ed. Patient TargetsNo targets recorded. Patient Instructions Encounter Date Encounter Id Patient Instructions Last Modified By Organization Details Last Modified Time 10/14/2015 [id number] glasses rx given , ocular health wnl OU, RTC 2 yrs CEE jmandile Not available 10/14/2015 14:36:42 Reason for Referral None Reported. Procedures Surgical History Date Name Laterality Status Provider Name and Address Organization Details Recorded Time 10/14/2015 Refraction completed Roya Carcamobonnie [facility] 10/14/2015 14:02:22 Imaging Results None recorded. Procedure Notes None recorded. Medical Equipment None Reported. Medications Name Sig Start Date Stop Date Status Note LastModified by Organization Details LastModified Time silver sulfadiazine 1 % topical cream active Not Available Not Available Not Available Vitals None Recorded Social History None recorded. Functional Status None recorded. Mental Status None recorded. Family History Nothing Reported. Medical History No medical history recorded. Gynecological HistoryNo gynecological history recorded. Obstetrics History GPAL:G 0 P 0 0 0 0 Past Encounters Encounter ID Performer Location Encounter Start Date Encounter Closed Date Diagnosis/Indication Diagnosis SNOMED-CT Code Diagnosis ICD10 Code Diagnosis Note [id number] [facility], [address] [address] 10/14/2015 13:37:27 10/14/2015 16:52:58 Presbyopia 08628501 H52.4 Health Concerns Section Related Observation LastModified by Organization Detai ls LastModified Time None Recorded Concern Status LastModified by Organization Details LastModified Time None Recorded Advance Directives Directive None Recorded Payers Encounter Date Sequence Insurance Name Policy Number Policy Cameron Covered Member ID Cameron Member ID Guarantor Name 10/14/2015 1 [facility] ([facility] [id number] Felisha Everett [id number] Felisha Everett OBGyn Episode No OBEpisode recorded.
--- OUTSIDE RECORDS SUMMARY | 2024-08-18 13:45 | XMS_ITS | Encounter Summary ---
Author Organization [facility] Address [address] [place] [phone] Care Team Providers Care Coil Taper Name Role Phone Yeimi Olivas MD Primary Care Provider [phone] Reason for Visit * Reason Comments Syncope X2 today Encounter Details Date Type Department Care Team (Late st Contact Info) Description 08/09/2024 10:31 PM EST - 08/10/2024 5:06 AM EST Emergency [facility] Emergency [address] [place] [phone] Kayli Love MD [address] [place] [address] Hyponatremia (Primary Dx); Viral syndrome; Near syncope [...] EST Thank you for coming to the [facility] Emergency Department today. Our entire team works [...] one of the following numbersto arrange follow-up: [facility] [phone] [facility] [phone] [facility] [phone] [facility] [phone] [facility] [phone] In the event that you're unable to [...] be sent through Care Everywhere. * Dehydration (Moroccan) * Hyponatremia (Moroccan) documented in this encounter Discharge Disposition Disposition Code Departure Means Destination Comment s Home or Self Care documented in this encounter Progress Notes * Artie Sanchez RN - 08/09/2024 7:44 PM EST Pt ambulatory up to [facility] multiple times asking about ER wait time [...] 5 years UPPER GASTROINTESTINAL ENDOSCOPY 08/26/2019 PROCEDURE: [place] UPPER GI ENDOSCOPY PERFORMED; COMMENT: negative, biopsy [...] Procedure Abnormality Status --------- ------ CBC auto differential[[id number]] Final result Please view results for these [...] Signed Date: 08/09/2024 16:16 ET Workstation ID: [id number] Transcribed By: Self Edit Transcribed Date: 08/09/2024 [...] Signed Date: 08/09/2024 16:16 ET Workstation ID: [id number] Transcribed By: Self Edit Transcribed Date: 08/09/2024 [...] Signed Date: 08/09/2024 16:16 ET Workstation ID: [id number] Transcribed By: Self Edit Transcribed Date: 08/09/2024 16:15 ET us Kayli Love MD IMG XR PROCEDURES Final Result * Troponin I high sensitivity (08/09/2024 4:07 PM EST) Pathologist [facility] High Sensitivity Troponin I 4 <=54 ng/L LAB CHEMISTRY METHOD 08/09/2024 4:42 PM EST [facility] Blood Venous blood specimen / Unknown Venipuncture / Unknown 08/09/2024 4:07 PM EST 08/09/2024 4:15 PM EST Narrative [facility] - 08/09/2024 4:42 PM EST High levels of biotin in samples may falsely decrease hsTroponin values. ??Use caution when interpreting hsTroponin results in patients taking biotin who exhibit renal impairment (eGFR <60) or in patients taking more than 20 mg/day of biotin. Kayli Love MD LAB BLOOD ORDERABLES Fin al Result Performing Organization Address [facility]/ZIP Co de Phone Number [facility] [address] [place] [address], [place] [phone] * ECG 12 lead (08/09/2024 4:00 PM EST) Ventricular Rate ECG 75 BPM GEMUSE Atrial Rate 75 BPM GEMUSE P-R Interval 144 ms GEMUSE QRS Duration 94 ms GEMUSE Q-T Interval 392 ms GEMUSE QTc 437 ms GEMUSE P Wave [place] 65 degrees GEMUSE R [place] 58 degrees GEMUSE T [place] 17 degrees GEMUSE ECG Interpretation Normal sinus rhythm Normal ECG When compared with ECG of 09-AUG-2024 13:37, (unconfirmed) No significant change was found Confirmed by KENYETTA CULP ([id number]) on 08/10/2024 6:18:39 PM GEMUSE 08/09/2024 4:00 PM EST 08/10/2024 6:18 PM EST Kayli Love MD ECG ORDERABLES Final Re sult GEMUSE * CBC auto differential (08/09/2024 1:50 PM EST) Pathologist [facility] WBC 5.9 4.8 - 10.8 K/[facility] LAB HEMETOLOGY METHOD 08/09/2024 2:09 PM EST [facility] RBC 4.50 3.80 - 4.80 M/[facility] LAB HEMETOLOGY METHOD 08/09/2024 2:09 PM [facility] Hemoglobin 13.2 11.5 - 16.0 g/dL LAB HEMETOLOGY METHOD 08/09/2024 2:09 PM [facility] Hematocrit 38.9 35.0 - 47.0 % LAB HEMETOLOGY METHOD 08/09/2024 2:09 PM [facility] MCV 86.8 79.0 - 98.0 FL LAB HEMETOLOGY METHOD 08/09/2024 2:09 PM [facility] MCH 29.5 27.0 - 32.0 pcg LAB HEMETOLOGY METHOD 08/09/2024 2:09 PM [facility] MCHC 33.9 32.0 - 37.0 g/dL LAB HEMETOLOGY METHOD 08/09/2024 2:09 PM [facility] RDW 11.8 11.0 - 15.0 % LAB HEMETOLOGY METHOD 08/09/2024 2:09 PM [facility] Platelets 202 130 - 400 K/mcL LAB HEMETOLOGY METHOD 08/09/2024 2:09 PM [facility] MPV 9.2 7.0 - 11.0 FL LAB HEMETOLOGY METHOD 08/09/2024 2:09 PM [facility] NRBC 0.0 <1.0 % LAB HEMETOLOGY METHOD 08/09/2024 2:09 PM [facility] NRBC Absolute 0.00 <0.10 K/mcL LAB HEMETOLOGY METHOD 08/09/2024 2:09 PM [facility] Neutrophils Relative 61.1 % LAB HEMETOLOGY METHOD 08/09/2024 2:09 PM [facility] Lymphocytes Relative 26.0 % LAB HEMETOLOGY METHOD 08/09/2024 2:09 PM [facility] Monocytes Relative 10.8 % LAB HEMETOLOGY METHOD 08/09/2024 2:09 PM [facility] Eosinophils Relative 1.3 % LAB HEMETOLOGY METHOD 08/09/2024 2:09 PM [facility] Basophils Relative 0.5 % LAB HEMETOLOGY METHOD 08/09/2024 2:09 PM [facility] Immature Granulocytes Relative 0.3 % LAB HEMETOLOGY METHOD 08/09/2024 2:09 PM [facility] Neutrophils Absolute 3.62 1.50 - 7.00 K/mcL LAB HEMETOLOGY METHOD 08/09/2024 2:09 PM [facility] Lymphocytes Absolute 1.54 1.00 - 5.00 K/mcL LAB HEMETOLOGY METHOD 08/09/2024 2:09 PM [facility] Monocytes Absolute 0.64 0.20 - 1.00 K/mcL LAB HEMETOLOGY METHOD 08/09/2024 2:09 PM EST [facility] Eosinophils Absolute 0.08 0.00 - 0.50 K/mcL LAB HEMETOLOGY METHOD 08/09/2024 2:09 PM [facility] Basophils Absolute 0.03 0.00 - 0.20 K/mcL LAB HEMETOLOGY METHOD 08/09/2024 2:09 PM [facility] Immature Granulocytes Absolute 0.02 0.00 - 0.03 K/mcL LAB HEMETOLOGY METHOD 08/09/2024 2:09 PM [facility] Blood Venous blood specimen / Unknown Venipuncture / Unknown 08/09/2024 1:50 PM EST 08/09/2024 1:55 PM EST us Kayli Love MD LAB BLOOD ORDERABLES Fin al Result [facility] [address] [place] [address], * B-type natriuretic peptide (08/09/2024 1:50 PM EST) BNP 14 <=100 pcg/mL LAB CHEMISTRY METHOD 08/09/2024 2:46 PM EST [facility] Blood Venous blood specimen / Unknown Venipuncture / Unknown 08/09/2024 1:50 PM EST 08/09/2024 1:56 PM EST Kayli Love MD LAB BLOOD ORDERABLES Fin al Result [facility] [address] [place] [address], [place] [phone] * Magnesium (08/09/2024 1:50 PM EST) [facility] Magnesium 2.0 1.9 - 2.6 mg/dL LAB CHEMISTRY METHOD 08/09/2024 2:21 PM EST [facility] Blood Venous blood specimen / Unknown Venipuncture / Unknown 08/09/2024 1:50 PM EST 08/09/2024 1:55 PM EST Kayli Love MD LAB BLOOD ORDERABLES Fin al Result Performing Organization Address City/[facility]/ZIP Co de Phone Number [facility] [address] [place] [address], [place] [phone] * Lipase (08/09/2024 1:50 PM EST) [facility] Lipase 63 13 - 75 unit/L LAB CHEMISTRY METHOD 08/09/2024 2:21 PM EST [facility] Blood Venous blood specimen / Unknown Venipuncture / Unknown 08/09/2024 1:50 PM EST 08/09/2024 1:55 PM EST Kayli Love MD LAB BLOOD ORDERABLES Fin al Result [facility] [address] [place] [address], [place] [phone] * (ABNORMAL) Comprehensive metabolic panel (08/09/2024 1:50 PM EST) Sodium 128(L) 133 - 145 mmol/L LAB CHEMISTRY METHOD 08/09/2024 2:21 PM EST [facility] Potassium 3.6 3.5 - 5.5 mmol/L LAB CHEMISTRY METHOD 08/09/2024 2:21 PM [facility] Chloride 95(L) 96 - 110 mmol/L LAB CHEMISTRY METHOD 08/09/2024 2:21 PM [facility] CO2 27 21 - 32 mmol/L LAB CHEMISTRY METHOD 08/09/2024 2:21 PM [facility] Anion Gap 6 3 - 11 LAB CHEMISTRY METHOD 08/09/2024 2:21 PM [facility] Glucose 109(H) 70 - 100 mg/dL LAB CHEMISTRY METHOD 08/09/2024 2:21 PM [facility] BUN 8 5 - 25 mg/dL LAB CHEMISTRY METHOD 08/09/2024 2:21 PM [facility] Creatinine 0.77 0.50 - 1.10 mg/dL LAB CHEMISTRY METHOD 08/09/2024 2:21 PM [facility] eGFR 85 >=60 mL/min/1. 73m2 LAB CHEMISTRY METHOD 08/09/2024 2:21 PM [facility] Comment:Calculation based on the??Chronic Kidney Disease Epidemiology Collaboration (CKD-EPI) equation refit??without adjustment for race. BUN/Creatinine Ratio 10.4 LAB CHEMISTRY METHOD 08/09/2024 2:21 PM [facility] Calcium 8.6 8.5 - 10.5 mg/dL LAB CHEMISTRY METHOD 08/09/2024 2:21 PM [facility] AST (SGOT) 43(H) 10 - 42 unit/L LAB CHEMISTRY METHOD 08/09/2024 2:21 PM EST [facility] ALT (SGPT) 91(H) 10 - 60 unit/L LAB CHEMISTRY METHOD 08/09/2024 2:21 PM EST [facility] Alkaline Phosphatase 91 42 - 121 unit/L LAB CHEMISTRY METHOD 08/09/2024 2:21 PM EST [facility] Total Protein 7.4 6.0 - 8.0 g/dL LAB CHEMISTRY METHOD 08/09/2024 2:21 PM EST [facility] Albumin 3.7 3.2 - 5.0 g/dL LAB CHEMISTRY METHOD 08/09/2024 2:21 PM [facility] Total Bilirubin 0.5 0.0 - 1.4 mg/dL LAB CHEMISTRY METHOD 08/09/2024 2:21 PM EST [facility] Blood Venous blood specimen / Unknown Venipuncture / Unknown 08/09/2024 1:50 PM EST 08/09/2024 1:55 PM EST us Kayli Love MD LAB BLOOD ORDERABLES Fin al Result [facility] [address] [place] [address], * Troponin I high sensitivity (08/09/2024 1:50 PM EST) High Sensitivity Troponin I 3 <=54 ng/L LAB CHEMISTRY METHOD 08/09/2024 2:34 PM EST [facility] Blood Venous blood specimen / Unknown Venipuncture / Unknown 08/09/2024 1:50 PM EST 08/09/2024 1:55 PM EST Narrative [facility] - 08/09/2024 2:34 PM EST High levels of biotin in samples may falsely decrease hsTroponin values. ??Use caution when interpreting hsTroponin results in patients taking biotin who exhibit renal impairment (eGFR <60) or in patients taking more than 20 mg/day of biotin. Kayli Love MD LAB BLOOD ORDERABLES Fin al Result Performing Organization Address City/[facility]/ZIP Co de Phone Number [facility] [address] [place] [address], [place] [phone] * ECG 12 lead (08/09/2024 1:37 PM EST) Ventricular Rate ECG 83 BPM GEMUSE Atrial Rate 83 BPM GEMUSE P-R Interval 150 ms GEMUSE QRS Duration 96 ms GEMUSE Q-T Interval 364 ms GEMUSE QTc 427 ms GEMUSE P Wave [place] 69 degrees GEMUSE R [place] 58 degrees GEMUSE T [place] 10 degrees GEMUSE ECG Interpretation Normal sinus rhythm Possible Left atrial enlargement Incomplete right bundle branch block Borderline ECG When compared with ECG of 08-OCT-2023 10:16, No significant change was found Confirmed by KENYETTA CULP ([id number]) on 08/10/2024 6:16:21 PM GEMUSE 08/09/2024 1:37 PM EST 08/10/2024 6:16 PM EST Kayli Love MD ECG ORDERABLES Final Re sult Performing Organization Address [facility] Co de Phone Number GEMUSE documented [...] 07/26 documented in this encounter Care Teams Coil Taper Relationship Specialty Start Date End Date Yeimi Olivas MD [address] [place] [address] PCP - General Internal Medicine 03/09/20 documented as of this encounter
[2024-08-18 13:46] LABS: MANUAL DIFF FLAG NO
[2024-08-18 13:59] LABS: Basophils Percent Auto 0.3 % (0-2); Eosinophils Percent Auto 0.5 % (0-4); Hemoglobin 14.2 g/dl (12.0-16.0); Imm Gran Abs Auto 0.03 X10*3/uL (0.00-0.03); Imm Gran Pct Auto 0.4 % (0.0-0.4); Lymphocytes Absolute Auto 2.5 X10*3/uL (1.2-4.9); Lymphocytes Percent Auto 31.1 % (20-40); Mean Corpuscular HGB Conc 33.8 g/dl (31.0-35.0); Mean Corpuscular Hemoglobin 29.5 pg (27.0-33.0); Mean Corpuscular Volume 87.1 fL (80.0-98.0); Mean Platelet Volume 9.2 fL (9.4-12.3); Monocytes Absolute Auto 0.5 X10*3/uL (0.1-1.2); Monocytes Percent Auto 6.4 % (2-11); Neutrophils Absolute Auto 4.9 x10*3/uL (2.0-8.3); Neutrophils Percent Auto 61.3 % (45-73); Platelet Count 340 X10*3/uL (160-400); Red Blood Count 4.82 X10*6/uL (4.20-5.50); Red Cell Distribution Width 11.7 % (11.0-16.0)
[2024-08-18 14:01] LABS: Appearance Urine Clear; Color Urine Yellow; Glucose Urine UA Negative (Negative); Leukocyte Esterase Urine Negative (Negative); Nitrite Urine Negative (Negative); PH 6.5 (5.0-9.0); UMIC TRIGGER UA YES; Urine Blood Trace (Negative); Urine Ketones Negative (Negative); Urine Protein Negative (Neg-Trace)
[2024-08-18 14:04] LABS: Bacteria Urine None Seen (None Seen); Hyaline Casts Urine 0-2 /LPF (0-2); RBC Urine 0-2 /HPF (0-2); Squamous Epithelial Cell Urine 0-2 /HPF (0-2); WBC Urine 0-5 /HPF (0-5)
[2024-08-18 14:05] LABS: Alanine Aminotransferase 42 U/L (0-31); Albumin Level 4.2 g/dL (3.5-5.0); Alkaline Phosphatase 77 U/L (39-117); Anion Gap 13 (12-20); Aspartate Amino Transferase 31 U/L (5-31); Bilirubin Total 0.4 mg/dL (0.0-1.0); Blood Urea Nitrogen 9 mg/dL (9-16); Calcium 9.5 mg/dL (8.4-10.2); Carbon Dioxide 25 mmol/L (22-29); Chloride 101 mmol/L (96-108); Estimated Glomerular Filt Rate > 60; Glucose Random 89 mg/dL (60-115); Potassium 3.6 mmol/L (3.3-5.1); Sodium 135 mmol/L (135-145); Total Protein 7.8 g/dL (6.5-8.0)
[2024-08-18 14:39] LABS: Erythrocyte Sedimentation Rate 10 MM/HR (0-20)
== END 2024-08-18 10:32 | disposition home or self-care (01) ==
LOC: HO.HMGCLDS 10:31
PROVIDERS: PCP Internal Medicine; Visit Provider Internal Medicine
DX: R10.13 Epigastric pain (principal); R05.9 Cough, unspecified; I10 Essential (primary) hypertension
CPT/HCPCS: 36415; 80053; 81001; 85025; 85652; 87086

== ENCOUNTER 2024-08-25 09:23 | Outpatient (AMB) | payer BC, SELFPAY ==
--- NOTE | 2024-08-25 09:24 | MHC.PC.OV ---
Vital Signs 08/25/24 09:25 Height 5 ft 2 in Weight 141 lb BMI 25.8 BP 134/80 Blood Pressure Location Lt brachial Position Sitting Pulse 78 Pulse Source Pulse Oximeter Temp 98.2 F Temp Source Oral Pulse Oximetry (%) 98 Oxygen Delivery Method Room Air Intake Visit Reasons: 4 months f/up Intake Note: Pt is here today for a follow up visit. Allergies No Known Allergies Allergy (Verified 08/25/24 09:25) Tobacco use date assessed: 08/25/24 Fall risk assessment: No Falls in past year Last assessed Fall Risk: 08/18/24 Dental Screening Dental Screen Date: 08/01/24 HPI 4 months f/up HPI Details Patient presents for the follow-up on hypertension chronic GERD. She complains of chronic left shoulder pain worse when sleeping on the left side. She denies any injury. Patient has been going for massage therapy without significant improvement. She reports chronic constant dizziness not related to position changes. she denies weakness or numbness in extremities, change in balance, diplopia headaches. [facility] Medical History Abdominal pain Myalgia Chest pain Hyperlipidemia Hand pain Back pain Mammogram normal Constipation GERD (gastroesophageal reflux disease) Vertigo Chronic neck pain Mid-back pain, acute HTN (hypertension) Surgical History History of cholecystectomy H/O colonoscopy History of esophagogastroduodenoscopy (EGD) No pertinent past surgical history Family History Father Cancer Mother Stroke Sister No problems noted. Sister No problems noted. Son No problems noted. Daughter No problems noted. Social History Housing: Apartment Patient Tobacco Use Status: Never used Tobacco e-Cigarette/Vaping Use: Never Used service: No Current occupational status: unemployed Current occupation: rt hand Cognitive needs: No Hearing needs: No Vision needs: No Questionnaire Thrive Questionnaire Date Thrive assessed: 08/01/24 SHAWN-7 AMB Questionnaire SHAWN-7 Date HSAWN - 7 assessed: 08/01/24 Source: Developed by Drs. Ilia Reece, Kimberly Almodovar, Mack Hdz and colleagues, with an educational odette from [employer]. Review of Systems Const All systems reviewed & are unremarkable except as noted in HPI and below Eyes Reports no additional complaints ENT Reports no additional complaints Card Reports no additional complaints Resp Reports no additional complaints GI Reports no additional complaints Reports no additional complaints Physical exam (Primary Care) Vital Signs: Last Vital Signs Temp 98.2 F 08/25/24 09:25 Pulse 78 08/25/24 09:25 BP 134/80 08/25/24 09:25 Pulse Ox 98 08/25/24 09:25 Oxygen Delivery Method Room Air 08/25/24 09:25 BMI result Body Mass Index 25.8 Tobacco/Smoking Status: Tobacco use Status Tobacco use date assessed 08/25/24 08/25/24 09:26 Patient Tobacco Use Status Never used Tobacco 08/25/24 09:26 e-Cigarette/Vaping Use Never Used 08/25/24 09:24 Thrive Assessment: Date of Thrive Assessment Date Thrive assessed 08/01/24 08/25/24 09:24 Const General: no acute distress HENMT Head: Yes normal to inspection Mouth: Normal oral and palatal mucosa present Resp Effort & Inspection: normal respiratory effort Auscultation: clear to auscultation bilaterally Cardio Rhythm: regular rhythm Heart sounds: S1 normal heart sound present and S2 normal heart sound present GI Inspection: Yes normal to inspection Extrem Other: Slightly decreased range of motion left shoulder when reaching overhead. There is no joint tenderness or swelling Coding Level of Care Code Est Pt Level 4 (54466) Diagnoses Shoulder pain, left M25.512 HTN (hypertension) I10 Hyperlipidemia E78.5 Assessment & Plan Assessment & Plan (1) Shoulder pain, left: Code(s): M25.512 - Pain in left shoulder Category: Medical Plan: For chronic left shoulder pain x-ray will be obtained PT was recommended but patient declined (2) HTN (hypertension): Code(s): I10 - Essential (primary) hypertension Category: Medical Plan: Continue current medications (3) Hyperlipidemia: Comment: REFUSED STATINS Code(s): E78.5 - Hyperlipidemia, unspecified Category: Medical Plan: Patient will try Zetia and follow-up in 2 months with a fasting labs before Orders: Orders Lipid Panel 2 Months E78.5 - Hyperlipidemia, unspecified, I10 - Essential (primary) hypertension Comprehensive [place]. Panel Fast 2 Months E78.5 - Hyperlipidemia, unspecified, I10 - Essential (primary) hypertension XR shoulder LT 1V Today M25.512 - Pain in left shoulder Complete Blood Count Auto Diff 2 Months E78.5 - Hyperlipidemia, unspecified, I10 - Essential (primary) hypertension TSH reflex Free T4 2 Months E78.5 - Hyperlipidemia, unspecified, I10 - Essential (primary) hypertension
[2024-08-25 09:25] VITALS: BP 134/80; PULSE 78; TEMP 36.8; O2SAT 98; BMI 25.8
--- OUTSIDE RECORDS SUMMARY | 2024-08-25 10:18 | XMS_ITS | Encounter Summary ---
Author Organization [facility] Address [address] [place] [phone] Care Team Providers Care Cattle Examiner Name Role Phone Yeimi Olivas MD Primary Care Provider [phone] Reason for Visit * Reason Comments Syncope X2 today Encounter Details Date Type Department Care Team (Late st Contact Info) Description 08/09/2024 10:31 PM EST - 08/10/2024 5:06 AM EST Emergency [facility] Emergency [address] [place] [phone] Kayli Love MD [address] [place] [address] Hyponatremia (Primary Dx); Viral syndrome; Near syncope [...] EST Thank you for coming to the [facility] Emergency Department today. Our entire team [...] one of the following numbersto arrange follow-up: [facility] [phone] [facility] [phone] [facility] [phone] [facility] [phone] [facility] [phone] In the event that you're unable to [...] be sent through Care Everywhere. * Dehydration (Citizen Of [place]) * Hyponatremia ([place]izen [place]) documented in this encounter Discharge Disposition Disposition Code Departure Means Destination Comment s Home or Self Care documented in this encounter Progress Notes * rAtie Sanchez RN - 08/09/2024 7:44 PM EST Pt ambulatory up to [facility] multiple times asking about ER wait time [...] 5 years UPPER GASTROINTESTINAL ENDOSCOPY 08/26/2019 PROCEDURE: ME UPPER GI ENDOSCOPY PERFORMED; COMMENT: negative, biopsy [...] Procedure Abnormality Status --------- ------ CBC auto differential[[id number]] Final result Please view results for these [...] Signed Date: 08/09/2024 16:16 ET Workstation ID: [id number] Transcribed By: Self Edit Transcribed Date: 08/09/2024 [...] Signed Date: 08/09/2024 16:16 ET Workstation ID: [id number] Transcribed By: Self Edit Transcribed Date: 08/09/2024 [...] Signed Date: 08/09/2024 16:16 ET Workstation ID: [id number] Transcribed By: Self Edit Transcribed Date: 08/09/2024 16:15 ET us Kayli Love MD IMG XR PROCEDURES Final Result * Troponin I high sensitivity (08/09/2024 4:07 PM EST) Pathologist [facility] Emergency Department High Sensitivity Troponin I 4 <=54 ng/L LAB CHEMISTRY METHOD 08/09/2024 4:42 PM EST [facility] Blood Venous blood specimen / Unknown Venipuncture / Unknown 08/09/2024 4:07 PM EST 08/09/2024 4:15 PM EST Narrative [facility] - 08/09/2024 4:42 PM EST High levels of biotin in samples may falsely decrease hsTroponin values. ??Use caution when interpreting hsTroponin results in patients taking biotin who exhibit renal impairment (eGFR <60) or in patients taking more than 20 mg/day of biotin. Kayli Love MD LAB BLOOD ORDERABLES Fin al Result Performing Organization Address [facility]/ZIP Co de Phone Number [facility] [address] [place] [address], [place] [phone] * ECG 12 lead (08/09/2024 4:00 PM EST) Ventricular Rate ECG 75 BPM GEMUSE Atrial Rate 75 BPM GEMUSE P-R Interval 144 ms GEMUSE QRS Duration 94 ms GEMUSE Q-T Interval 392 ms GEMUSE QTc 437 ms GEMUSE P Wave [place] 65 degrees GEMUSE R [place] 58 degrees GEMUSE T [place] 17 degrees GEMUSE ECG Interpretation Normal sinus rhythm Normal ECG When compared with ECG of 09-AUG-2024 13:37, (unconfirmed) No significant change was found Confirmed by KENYETTA CULP ([id number]) on 08/10/2024 6:18:39 PM GEMUSE 08/09/2024 4:00 PM EST 08/10/2024 6:18 PM EST Kayli Love MD ECG ORDERABLES Final Re sult GEMUSE * CBC auto differential (08/09/2024 1:50 PM EST) Pathologist [facility] Emergency Department WBC 5.9 4.8 - 10.8 K/[facility] LAB HEMETOLOGY METHOD 08/09/2024 2:09 PM EST [facility] RBC 4.50 3.80 - 4.80 M/[facility] LAB HEMETOLOGY METHOD 08/09/2024 2:09 PM [facility] Hemoglobin 13.2 11.5 - 16.0 g/dL LAB HEMETOLOGY METHOD 08/09/2024 2:09 PM [facility] Hematocrit 38.9 35.0 - 47.0 % LAB HEMETOLOGY METHOD 08/09/2024 2:09 PM [facility] MCV 86.8 79.0 - 98.0 FL LAB HEMETOLOGY METHOD 08/09/2024 2:09 PM [facility] MCH 29.5 27.0 - 32.0 pcg LAB HEMETOLOGY METHOD 08/09/2024 2:09 PM [facility] MCHC 33.9 32.0 - 37.0 g/dL LAB HEMETOLOGY METHOD 08/09/2024 2:09 PM [facility] RDW 11.8 11.0 - 15.0 % LAB HEMETOLOGY METHOD 08/09/2024 2:09 PM [facility] Platelets 202 130 - 400 K/mcL LAB HEMETOLOGY METHOD 08/09/2024 2:09 PM [facility] MPV 9.2 7.0 - 11.0 FL LAB HEMETOLOGY METHOD 08/09/2024 2:09 PM [facility] NRBC 0.0 <1.0 % LAB HEMETOLOGY METHOD 08/09/2024 2:09 PM [facility] NRBC Absolute 0.00 <0.10 K/mcL LAB HEMETOLOGY METHOD 08/09/2024 2:09 PM [facility] Neutrophils Relative 61.1 % LAB HEMETOLOGY METHOD 08/09/2024 2:09 PM [facility] Lymphocytes Relative 26.0 % LAB HEMETOLOGY METHOD 08/09/2024 2:09 PM [facility] Monocytes Relative 10.8 % LAB HEMETOLOGY METHOD 08/09/2024 2:09 PM [facility] Eosinophils Relative 1.3 % LAB HEMETOLOGY METHOD 08/09/2024 2:09 PM [facility] Basophils Relative 0.5 % LAB HEMETOLOGY METHOD 08/09/2024 2:09 PM [facility] Immature Granulocytes Relative 0.3 % LAB HEMETOLOGY METHOD 08/09/2024 2:09 PM [facility] Neutrophils Absolute 3.62 1.50 - 7.00 K/mcL LAB HEMETOLOGY METHOD 08/09/2024 2:09 PM [facility] Lymphocytes Absolute 1.54 1.00 - 5.00 K/mcL LAB HEMETOLOGY METHOD 08/09/2024 2:09 PM [facility] Monocytes Absolute 0.64 0.20 - 1.00 K/mcL LAB HEMETOLOGY METHOD 08/09/2024 2:09 PM EST [facility] Eosinophils Absolute 0.08 0.00 - 0.50 K/mcL LAB HEMETOLOGY METHOD 08/09/2024 2:09 PM [facility] Basophils Absolute 0.03 0.00 - 0.20 K/mcL LAB HEMETOLOGY METHOD 08/09/2024 2:09 PM [facility] Immature Granulocytes Absolute 0.02 0.00 - 0.03 K/mcL LAB HEMETOLOGY METHOD 08/09/2024 2:09 PM [facility] Blood Venous blood specimen / Unknown Venipuncture / Unknown 08/09/2024 1:50 PM EST 08/09/2024 1:55 PM EST us Kayli Love MD LAB BLOOD ORDERABLES Fin al Result [facility] [address] [place] [address], * B-type natriuretic peptide (08/09/2024 1:50 PM EST) BNP 14 <=100 pcg/mL LAB CHEMISTRY METHOD 08/09/2024 2:46 PM EST [facility] Blood Venous blood specimen / Unknown Venipuncture / Unknown 08/09/2024 1:50 PM EST 08/09/2024 1:56 PM EST Kayli Love MD LAB BLOOD ORDERABLES Fin al Result [facility] [address] [place] [address], [place] [phone] * Magnesium (08/09/2024 1:50 PM EST) [facility] Magnesium 2.0 1.9 - 2.6 mg/dL LAB CHEMISTRY METHOD 08/09/2024 2:21 PM EST [facility] Blood Venous blood specimen / Unknown Venipuncture / Unknown 08/09/2024 1:50 PM EST 08/09/2024 1:55 PM EST Kayli Love MD LAB BLOOD ORDERABLES Fin al Result Performing Organization Address City/[facility]/ZIP Co de Phone Number [facility] [address] [place] [address], [place] [phone] * Lipase (08/09/2024 1:50 PM EST) [facility] Lipase 63 13 - 75 unit/L LAB CHEMISTRY METHOD 08/09/2024 2:21 PM EST [facility] Blood Venous blood specimen / Unknown Venipuncture / Unknown 08/09/2024 1:50 PM EST 08/09/2024 1:55 PM EST Kayli Love MD LAB BLOOD ORDERABLES Fin al Result [facility] [address] [place] [address], [place] [phone] * (ABNORMAL) Comprehensive metabolic panel (08/09/2024 1:50 PM EST) Sodium 128(L) 133 - 145 mmol/L LAB CHEMISTRY METHOD 08/09/2024 2:21 PM EST [facility] Potassium 3.6 3.5 - 5.5 mmol/L LAB CHEMISTRY METHOD 08/09/2024 2:21 PM [facility] Chloride 95(L) 96 - 110 mmol/L LAB CHEMISTRY METHOD 08/09/2024 2:21 PM [facility] CO2 27 21 - 32 mmol/L LAB CHEMISTRY METHOD 08/09/2024 2:21 PM [facility] Anion Gap 6 3 - 11 LAB CHEMISTRY METHOD 08/09/2024 2:21 PM [facility] Glucose 109(H) 70 - 100 mg/dL LAB CHEMISTRY METHOD 08/09/2024 2:21 PM [facility] BUN 8 5 - 25 mg/dL LAB CHEMISTRY METHOD 08/09/2024 2:21 PM [facility] Creatinine 0.77 0.50 - 1.10 mg/dL LAB CHEMISTRY METHOD 08/09/2024 2:21 PM [facility] eGFR 85 >=60 mL/min/1. 73m2 LAB CHEMISTRY METHOD 08/09/2024 2:21 PM [facility] Comment:Calculation based on the??Chronic Kidney Disease Epidemiology Collaboration (CKD-EPI) equation refit??without adjustment for race. BUN/Creatinine Ratio 10.4 LAB CHEMISTRY METHOD 08/09/2024 2:21 PM [facility] Calcium 8.6 8.5 - 10.5 mg/dL LAB CHEMISTRY METHOD 08/09/2024 2:21 PM [facility] AST (SGOT) 43(H) 10 - 42 unit/L LAB CHEMISTRY METHOD 08/09/2024 2:21 PM EST [facility] ALT (SGPT) 91(H) 10 - 60 unit/L LAB CHEMISTRY METHOD 08/09/2024 2:21 PM EST [facility] Alkaline Phosphatase 91 42 - 121 unit/L LAB CHEMISTRY METHOD 08/09/2024 2:21 PM EST [facility] Total Protein 7.4 6.0 - 8.0 g/dL LAB CHEMISTRY METHOD 08/09/2024 2:21 PM EST [facility] Albumin 3.7 3.2 - 5.0 g/dL LAB CHEMISTRY METHOD 08/09/2024 2:21 PM [facility] Total Bilirubin 0.5 0.0 - 1.4 mg/dL LAB CHEMISTRY METHOD 08/09/2024 2:21 PM EST [facility] Blood Venous blood specimen / Unknown Venipuncture / Unknown 08/09/2024 1:50 PM EST 08/09/2024 1:55 PM EST us Kayli Love MD LAB BLOOD ORDERABLES Fin al Result [facility] [address] [place] [address], * Troponin I high sensitivity (08/09/2024 1:50 PM EST) High Sensitivity Troponin I 3 <=54 ng/L LAB CHEMISTRY METHOD 08/09/2024 2:34 PM EST [facility] Blood Venous blood specimen / Unknown Venipuncture / Unknown 08/09/2024 1:50 PM EST 08/09/2024 1:55 PM EST Narrative [facility] - 08/09/2024 2:34 PM EST High levels of biotin in samples may falsely decrease hsTroponin values. ??Use caution when interpreting hsTroponin results in patients taking biotin who exhibit renal impairment (eGFR <60) or in patients taking more than 20 mg/day of biotin. Kayli Love MD LAB BLOOD ORDERABLES Fin al Result Performing Organization Address City/[facility]/ZIP Co de Phone Number [id number] [address] [place] [address], [place] [phone] * ECG 12 lead (08/09/2024 1:37 PM EST) Ventricular Rate ECG 83 BPM GEMUSE Atrial Rate 83 BPM GEMUSE P-R Interval 150 ms GEMUSE QRS Duration 96 ms GEMUSE Q-T Interval 364 ms GEMUSE QTc 427 ms GEMUSE P Wave [place] 69 degrees GEMUSE R [place] 58 degrees GEMUSE T [place] 10 degrees GEMUSE ECG Interpretation Normal sinus rhythm Possible Left atrial enlargement Incomplete right bundle branch block Borderline ECG When compared with ECG of 08-OCT-2023 10:16, No significant change was found Confirmed by KENYETTA CULP ([id number]) on 08/10/2024 6:16:21 PM GEMUSE 08/09/2024 1:37 PM EST 08/10/2024 6:16 PM EST Kayli Love MD ECG ORDERABLES Final Re sult Performing Organization Address [facility] Co de Phone Number GEMUSE documented [...] 07/26 documented in this encounter Care Teams Cattle Examiner Relationship Specialty Start Date End Date Yeimi Olivas MD [address] [place] [address] PCP - General Internal Medicine 03/09/20 documented as of this encounter
--- OUTSIDE RECORDS SUMMARY | 2024-08-25 10:18 | XMS_ITS | Data Portability ---
Author Organization [facility], , [facility] Address [address] [place] [address] Assessment No assessment recorded. Plan of Treatment [...] By Organization Details Last Modified Time 10/14/2015 [id number] glasses rx given , ocular health wnl OU, RTC 2 yrs CEE jmandile Not available 10/14/2015 14:36:42 Reason for Referral None Reported. Procedures Surgical History Date Name Laterality Status Provider Name and Address Organization Details Recorded Time 10/14/2015 Refraction completed Roya Carcamobonnie [facility] 10/14/2015 14:02:22 Imaging Results None recorded. Procedure [...] SNOMED-CT Code Diagnosis ICD10 Code Diagnosis Note [id number] [facility]uly [facility] [place], [address] [address] 10/14/2015 13:37:27 10/14/2015 16:52:58 Presbyopia [id number] H52.4 Health Concerns Section Related Observation LastModified by Organization Detai ls LastModified Time None Recorded Concern Status LastModified by Organization Details LastModified Time None Recorded Advance Directives Directive None Recorded Payers Encounter Date Sequence Insurance Name Policy Number Policy Cameron Covered Member ID Cameron Member ID Guarantor Name 10/14/[address] [facility] PLAN ([facility] [place] [id number] Felisha Everett [id number] Felisha Everett OBGyn Episode No OBEpisode recorded.
--- OUTSIDE RECORDS SUMMARY | 2024-08-25 10:18 | XMS_ITS | Clinical Summary ---
Author Organization [facility] Address [address] [place] [address] Phone Care Team Providers Care Repairer And Checker Name Role Phone Yeimi Olivas MD Primary Care Provider [phone] Allergies No known active allergies Encounters Date Type Department Care Team Description 08/09/2024 10:31 PM EST - 08/10/2024 5:06 AM EST Emergency [facility] Emergency [address] [place] [id number] Kayli Love MD Hyponatremia (Primary Dx); Viral [...] Signed Date: 08/09/2024 16:16 ET Workstation ID: [id number] Transcribed By: Self Edit Transcribed Date: 08/09/2024 [...] Signed Date: 08/09/2024 16:16 ET Workstation ID: [id number] Transcribed By: Self Edit Transcribed Date: 08/09/2024 16:15 ET Kayli Love MD IMG XR PROCEDURES Final Result * Troponin I high sensitivity (08/09/2024 4:07 PM EST) Only the most recent of2 resultswithin the time period is included. [facility] High Sensitivity Troponin I 4 <=54 [...] Result [facility] [address] [place] [address], * ECG 12 lead (08/09/2024 4:00 PM EST) Only the most recent of2 resultswithin the time period is included. [facility] Ventricular Rate ECG 75 BPM GEMUSE Atrial Rate 75 BPM GEMUSE P-R Interval 144 ms GEMUSE QRS Duration 94 ms GEMUSE Q-T Interval 392 ms GEMUSE QTc 437 ms GEMUSE P Wave [place] 65 degrees GEMUSE R [place] 58 degrees GEMUSE T [place] 17 degrees GEMUSE ECG Interpretation Normal sinus [...] ORDERABLES Fin al Result Performing Organization Address City/[facility]/ZIP Co de Phone Number [facility] [address] [place] [address], [place] [phone] * B-type natriuretic peptide (08/09/2024 1:50 PM EST) BNP 14 <=100 pcg/mL LAB CHEMISTRY METHOD 08/09/2024 2:46 PM EST [facility] Blood Venous blood specimen / Unknown Venipuncture / Unknown 08/09/2024 1:50 PM EST 08/09/2024 1:56 PM EST Kayli Love MD LAB BLOOD ORDERABLES Fin al Result Performing Organization Address [facility] Co de Phone Number [facility] [address] [place] [address], [place] [phone] * Magnesium (08/09/2024 1:50 PM EST) Magnesium 2.0 1.9 - 2.6 mg/dL LAB CHEMISTRY METHOD 08/09/2024 2:21 PM EST [facility] Blood Venous blood specimen / Unknown Venipuncture / Unknown 08/09/2024 1:50 PM EST 08/09/2024 1:55 PM EST Kayli Love MD LAB BLOOD ORDERABLES Fin al Result Performing Organization Address City/[facility]/ZIP Co de Phone Number [facility] [address] [place] [address], [place] [phone] * Lipase (08/09/2024 1:50 PM EST) Pathologist [facility] Department Lipase 63 13 - 75 unit/L LAB CHEMISTRY METHOD 08/09/2024 2:21 PM [facility] Blood Venous blood specimen / Unknown Venipuncture / Unknown 08/09/2024 1:50 PM EST 08/09/2024 1:55 PM EST us Kayli Love MD LAB BLOOD ORDERABLES Fin al Result [facility] [address] [place] [address], [place] [phone] * (ABNORMAL) Comprehensive metabolic panel (08/09/2024 1:50 PM EST) Pathologist [facility] Department Sodium 128(L) 133 - 145 mmol/L LAB [...] Result [facility] [address] [place] [address], * SCREENING MAMMOGRAPHY BI 2-VIEW [employer] [...] Insurance MEDICARE MEDICAID - [place] Care Teams Repairer And Checker Relationship Specialty Start Date End Date Yeimi Olivas MD [address] [place] [address] PCP - General Internal Medicine 03/09/20
== END 2024-08-25 09:54 | disposition home or self-care (01) ==
PROVIDERS: PCP Internal Medicine; Visit Provider Internal Medicine
DX: M25.512 Pain in left shoulder (principal); I10 Essential (primary) hypertension; E78.5 Hyperlipidemia, unspecified

== ENCOUNTER 2024-08-25 09:23 | Outpatient (REF) | payer BC, SELFPAY ==
--- NOTE | ~2024-08-25 | XR_ITS ---
EXAMINATION: XR SHOULDER, LEFT CLINICAL INFORMATION: M25.512 - Pain in left shoulder COMPARISON: None available. TECHNIQUE: AP external rotation, Grashey, scapular Y, and axillary views of the left shoulder. FINDINGS: Sclerosis and the articular surface of the acromioclavicular joint with subchondral cyst formation. No acute cortical disruption or malalignment. No gross lytic or blastic lesions. XR/XR shoulder LT min 2V IMPRESSION: Degenerative changes mostly acromioclavicular joint. Electronically signed by: Sriram Barrios MD 08/26/2024 08:56 AM SY
--- OUTSIDE RECORDS SUMMARY | 2024-08-25 11:15 | XMS_ITS | Clinical Summary ---
Author Organization [facility] Address [address] [place] [address] Phone Care Team Providers Care Wheat Farmer Name Role Phone Yeimi Olivas MD Primary Care Provider [phone] Allergies No known active allergies Encounters Date Type Department Care Team Description 08/09/2024 10:31 PM EST - 08/10/2024 5:[address] [facility] Emergency [address] [place] [id number] Kayli Love MD Hyponatremia (Primary Dx); Viral syndrome; Near syncope Discharge Disposition: Home or Self Care from Last 3 Months Surgical History Surgery Date Site/Laterality Comments CHOLECYSTECTOMY PROCEDURE: HISTORICAL CHOLECYSTECTOMY COLONOSCOPY 06/24/2019 PROCEDURE: HISTORICAL COLONOSCOPY; COMMENT: repeat 5 years UPPER GASTROINTESTINAL ENDOSCOPY 08/26/2019 PROCEDURE: PA UPPER GI ENDOSCOPY PERFORMED; COMMENT: negative, biopsy [...] Signed Date: 08/09/2024 16:16 ET Workstation ID: [id number] Transcribed By: Self Edit Transcribed Date: 08/09/2024 [...] Signed Date: 08/09/2024 16:16 ET Workstation ID: [id number] Transcribed By: Self Edit Transcribed Date: 08/09/2024 16:15 ET Kayli Love MD IMG XR PROCEDURES Final Result * Troponin I high sensitivity (08/09/2024 4:07 PM EST) Only the most recent of2 resultswithin the time period is included. [facility] High Sensitivity Troponin I 4 <=54 ng/L LAB CHEMISTRY METHOD 08/09/2024 4:42 PM EST [facility] Blood Venous blood specimen / Unknown Venipuncture / Unknown 08/09/2024 4:07 PM EST 08/09/2024 4:15 PM EST Narrative [facility] - 08/09/2024 4:42 PM EST High levels of biotin in samples may falsely decrease hsTroponin values. ??Use caution when interpreting hsTroponin results in patients taking biotin who exhibit renal impairment (eGFR <60) or in patients taking more than 20 mg/day of biotin. Kayli Love MD LAB BLOOD ORDERABLES Fin al Result [facility] [address] [place] [address], * ECG 12 lead (08/09/2024 4:00 PM EST) Only the most recent of2 resultswithin the time period is included. [facility] Ventricular Rate ECG 75 BPM GEMUSE Atrial Rate 75 BPM GEMUSE P-R Interval 144 ms GEMUSE QRS Duration 94 ms GEMUSE Q-T Interval 392 ms GEMUSE QTc 437 ms GEMUSE P Wave [place] 65 degrees GEMUSE R [place] 58 degrees GEMUSE T [place] 17 degrees GEMUSE ECG Interpretation Normal sinus [...] K/mcL LAB HEMETOLOGY METHOD 08/09/2024 2:09 PM [facility] RBC 4.50 3.80 - 4.80 M/mcL LAB HEMETOLOGY METHOD 08/09/2024 2:09 PM [facility] Hemoglobin 13.2 11.5 - 16.0 g/dL LAB HEMETOLOGY METHOD 08/09/2024 2:09 PM [facility] Hematocrit 38.9 35.0 - 47.0 % LAB HEMETOLOGY METHOD 08/09/2024 2:09 PM [facility] MCV 86.8 79.0 - 98.0 FL LAB HEMETOLOGY METHOD 08/09/2024 2:09 PM [facility] MCH 29.5 27.0 - 32.0 pcg LAB HEMETOLOGY METHOD 08/09/2024 2:09 PM [facility] MCHC 33.9 32.0 - 37.0 g/dL LAB HEMETOLOGY METHOD 08/09/2024 2:09 PM [facility] RDW 11.8 11.0 - 15.0 % LAB HEMETOLOGY METHOD 08/09/2024 2:09 PM [facility] Platelets 202 130 - 400 K/mcL LAB HEMETOLOGY METHOD 08/09/2024 2:09 PM [facility] MPV 9.2 7.0 - 11.0 FL LAB HEMETOLOGY METHOD 08/09/2024 2:09 PM [facility] NRBC 0.0 <1.0 % LAB HEMETOLOGY METHOD 08/09/2024 2:09 PM [facility] NRBC Absolute 0.00 <0.10 K/mcL LAB HEMETOLOGY METHOD 08/09/2024 2:09 PM [facility] Neutrophils Relative 61.1 % LAB HEMETOLOGY METHOD 08/09/2024 2:09 PM [facility] Lymphocytes Relative 26.0 % LAB HEMETOLOGY METHOD 08/09/2024 2:09 PM [facility] Monocytes Relative 10.8 % LAB HEMETOLOGY METHOD 08/09/2024 2:09 PM [facility] Eosinophils Relative 1.3 % LAB HEMETOLOGY METHOD 08/09/2024 2:09 PM [facility] Basophils Relative 0.5 % LAB HEMETOLOGY METHOD 08/09/2024 2:09 PM [facility] Immature Granulocytes Relative 0.3 % LAB HEMETOLOGY METHOD 08/09/2024 2:09 PM [facility] Neutrophils Absolute 3.62 1.50 - 7.00 K/mcL LAB HEMETOLOGY METHOD 08/09/2024 2:09 PM [facility] Lymphocytes Absolute 1.54 1.00 - 5.00 K/mcL LAB HEMETOLOGY METHOD 08/09/2024 2:09 PM [facility] Monocytes Absolute 0.64 0.20 - 1.00 K/mcL LAB HEMETOLOGY METHOD 08/09/2024 2:09 PM [facility] Eosinophils Absolute 0.08 0.00 - 0.50 K/mcL LAB HEMETOLOGY METHOD 08/09/2024 2:09 PM [facility] Basophils Absolute 0.03 0.00 - 0.20 K/mcL LAB HEMETOLOGY METHOD 08/09/2024 2:09 PM [facility] Immature Granulocytes Absolute 0.02 0.00 - 0.03 K/mcL LAB HEMETOLOGY METHOD 08/09/2024 2:09 PM EST [facility] Blood Venous blood specimen / Unknown Venipuncture / Unknown 08/09/2024 1:50 PM EST 08/09/2024 1:55 PM EST Kayli Love MD LAB BLOOD ORDERABLES Fin al Result Performing Organization Address City/[facility]/ZIP Co de Phone Number [facility] [address] [place] [address], [place] [phone] * B-type natriuretic peptide (08/09/2024 1:50 PM EST) BNP 14 <=100 pcg/mL LAB CHEMISTRY METHOD 08/09/2024 2:46 PM EST [facility] Blood Venous blood specimen / Unknown Venipuncture / Unknown 08/09/2024 1:50 PM EST 08/09/2024 1:56 PM EST Kayli Love MD LAB BLOOD ORDERABLES Fin al Result Performing Organization Address [facility] Co de Phone Number [facility] [address] [place] [address], [place] [phone] * Magnesium (08/09/2024 1:50 PM EST) Magnesium 2.0 1.9 - 2.6 mg/dL LAB CHEMISTRY METHOD 08/09/2024 2:21 PM EST [facility] Blood Venous blood specimen / Unknown Venipuncture / Unknown 08/09/2024 1:50 PM EST 08/09/2024 1:55 PM EST Kayli Love MD LAB BLOOD ORDERABLES Fin al Result Performing Organization Address City/[facility]/ZIP Co de Phone Number [facility] [address] [place] [address], [place] [phone] * Lipase (08/09/2024 1:50 PM EST) Pathologist [facility] Lipase 63 13 - 75 unit/L LAB CHEMISTRY METHOD 08/09/2024 2:21 PM [facility] Blood Venous blood specimen / Unknown Venipuncture / Unknown 08/09/2024 1:50 PM EST 08/09/2024 1:55 PM EST us Kayli Love MD LAB BLOOD ORDERABLES Fin al Result [facility] [address] [place] [address], [place] [phone] * (ABNORMAL) Comprehensive metabolic panel (08/09/2024 1:50 PM EST) Pathologist [facility] Sodium 128(L) 133 - 145 mmol/L LAB CHEMISTRY METHOD 08/09/2024 2:21 PM [facility] Potassium 3.6 3.5 - 5.5 mmol/L LAB CHEMISTRY METHOD 08/09/2024 2:21 PM [facility] Chloride 95(L) 96 - 110 mmol/L LAB CHEMISTRY METHOD 08/09/2024 2:21 PM [facility] CO2 27 21 - 32 mmol/L LAB CHEMISTRY METHOD 08/09/2024 2:21 PM [facility] Anion Gap 6 3 - 11 LAB CHEMISTRY METHOD 08/09/2024 2:21 PM [facility] Glucose 109(H) 70 - 100 mg/dL LAB CHEMISTRY METHOD 08/09/2024 2:21 PM [facility] BUN 8 5 - 25 mg/dL LAB CHEMISTRY METHOD 08/09/2024 2:21 PM [facility] Creatinine 0.77 0.50 - 1.10 mg/dL LAB CHEMISTRY METHOD 08/09/2024 2:21 PM [facility] eGFR 85 >=60 mL/min/1. 73m2 LAB CHEMISTRY METHOD 08/09/2024 2:21 PM [facility] Comment:Calculation based on the??Chronic Kidney Disease Epidemiology Collaboration (CKD-EPI) equation refit??without adjustment for race. BUN/Creatinine Ratio 10.4 LAB CHEMISTRY METHOD 08/09/2024 2:21 PM [facility] Calcium 8.6 8.5 - 10.5 mg/dL LAB CHEMISTRY METHOD 08/09/2024 2:21 PM [facility] AST (SGOT) 43(H) 10 - 42 unit/L LAB CHEMISTRY METHOD 08/09/2024 2:21 PM [facility] ALT (SGPT) 91(H) 10 - 60 unit/L LAB CHEMISTRY METHOD 08/09/2024 2:21 PM [facility] Alkaline Phosphatase 91 42 - 121 unit/L LAB CHEMISTRY METHOD 08/09/2024 2:21 PM [facility] Total Protein 7.4 6.0 - 8.0 g/dL LAB CHEMISTRY METHOD 08/09/2024 2:21 PM [facility] Albumin 3.7 3.2 - 5.0 g/dL LAB CHEMISTRY METHOD 08/09/2024 2:21 PM [facility] Total Bilirubin 0.5 0.0 - 1.4 mg/dL LAB CHEMISTRY METHOD 08/09/2024 2:21 PM [facility] Blood Venous blood specimen / Unknown Venipuncture / Unknown 08/09/2024 1:50 PM EST 08/09/2024 1:55 PM EST us Kayli Love MD LAB BLOOD ORDERABLES Fin al Result [facility] [address] [place] [address], * SCREENING MAMMOGRAPHY BI 2-VIEW [employer] [...] Insurance MEDICARE MEDICAID - [place] Care Teams Wheat Farmer Relationship Specialty Start Date End Date Yeimi Olivas MD [address] [place] [address] PCP - General Internal Medicine 03/09/20
--- OUTSIDE RECORDS SUMMARY | 2024-08-25 11:15 | XMS_ITS | Encounter Summary ---
Author Organization [facility] Address [address] [place] [phone] Care Team Providers Care Boat Fueler Name Role Phone Yeimi Olivas MD Primary Care Provider [phone] Reason for Visit * Reason Comments Syncope X2 today Encounter Details Date Type Department Care Team (Late st Contact Info) Description 08/09/2024 10:31 PM EST - 08/10/2024 5:06 AM EST Emergency [facility] Emergency [address] [place] [phone] Kayli Love MD [address] [place] [address] Hyponatremia (Primary Dx); Viral syndrome; Near syncope [...] EST Thank you for coming to the [facility] Emergency Department today. Our entire team [...] one of the following numbersto arrange follow-up: [facility] [phone] [facility] [phone] [facility] [phone] [facility] [phone] [facility] [phone] In the event that you're unable to [...] be sent through Care Everywhere. * Dehydration (Tanzanian) * Hyponatremia (Tanzanian) documented in this encounter Discharge Disposition Disposition Code Departure Means Destination Comment s Home or Self Care documented in this encounter Progress Notes * Artie Sanchez RN - 08/09/2024 7:44 PM EST Pt ambulatory up to [facility] multiple times asking about ER wait [...] Procedure Abnormality Status --------- ------ CBC auto differential[[id number]] Final result Please view results for these [...] Signed Date: 08/09/2024 16:16 ET Workstation ID: [id number] Transcribed By: Self Edit Transcribed Date: 08/09/2024 [...] Signed Date: 08/09/2024 16:16 ET Workstation ID: [id number] Transcribed By: Self Edit Transcribed Date: 08/09/2024 [...] Signed Date: 08/09/2024 16:16 ET Workstation ID: [id number] Transcribed By: Self Edit Transcribed Date: 08/09/2024 16:15 ET us Kayli Love MD IMG XR PROCEDURES Final Result * Troponin I high sensitivity (08/09/2024 4:07 PM EST) Pathologist [facility] High Sensitivity Troponin I 4 <=54 ng/L LAB CHEMISTRY METHOD 08/09/2024 4:42 PM EST [facility] Blood Venous blood specimen / Unknown Venipuncture / Unknown 08/09/2024 4:07 PM EST 08/09/2024 4:15 PM EST Narrative [facility] - 08/09/2024 4:42 PM EST High levels of biotin in samples may falsely decrease hsTroponin values. ??Use caution when interpreting hsTroponin results in patients taking biotin who exhibit renal impairment (eGFR <60) or in patients taking more than 20 mg/day of biotin. Kayli Love MD LAB BLOOD ORDERABLES Fin al Result Performing Organization Address [facility]/ZIP Co de Phone Number [facility] [address] [place] [address], [place] [phone] * ECG 12 lead (08/09/2024 4:00 PM EST) Ventricular Rate ECG 75 BPM GEMUSE Atrial Rate 75 BPM GEMUSE P-R Interval 144 ms GEMUSE QRS Duration 94 ms GEMUSE Q-T Interval 392 ms GEMUSE QTc 437 ms GEMUSE P Wave [place] 65 degrees GEMUSE R [place] 58 degrees GEMUSE T [place] 17 degrees GEMUSE ECG Interpretation Normal sinus rhythm Normal ECG When compared with ECG of 09-AUG-2024 13:37, (unconfirmed) No significant change was found Confirmed by KENYETTA CULP ([id number]) on 08/10/2024 6:18:39 PM GEMUSE 08/09/2024 4:00 PM EST 08/10/2024 6:18 PM EST Kayli Love MD ECG ORDERABLES Final Re sult GEMUSE * CBC auto differential (08/09/2024 1:50 PM EST) Pathologist [facility] WBC 5.9 4.8 - 10.8 K/[facility] LAB HEMETOLOGY METHOD 08/09/2024 2:09 PM EST [facility] RBC 4.50 3.80 - 4.80 M/[facility] LAB HEMETOLOGY METHOD 08/09/2024 2:09 PM GRACE [...] LAB HEMETOLOGY METHOD 08/09/2024 2:09 PM EST [facility] Eosinophils Absolute 0.08 0.00 - 0.50 K/mcL LAB HEMETOLOGY METHOD 08/09/2024 2:09 PM [facility] Basophils Absolute 0.03 0.00 - 0.20 K/mcL LAB HEMETOLOGY METHOD 08/09/2024 2:09 PM [facility] Immature Granulocytes Absolute 0.02 0.00 - 0.03 K/mcL LAB HEMETOLOGY METHOD 08/09/2024 2:09 PM [facility] Blood Venous blood specimen / Unknown Venipuncture / Unknown 08/09/2024 1:50 PM EST 08/09/2024 1:55 PM EST us Kayli Love MD LAB BLOOD ORDERABLES Fin al Result [facility] [address] [place] [address], * B-type natriuretic peptide (08/09/2024 1:50 PM EST) BNP 14 <=100 pcg/mL LAB CHEMISTRY METHOD 08/09/2024 2:46 PM EST [facility] Blood Venous blood specimen / Unknown Venipuncture / Unknown 08/09/2024 1:50 PM EST 08/09/2024 1:56 PM EST Kayli Love MD LAB BLOOD ORDERABLES Fin al Result [facility] [address] [place] [address], [place] [phone] * Magnesium (08/09/2024 1:50 PM EST) [facility] Magnesium 2.0 1.9 - 2.6 mg/dL LAB CHEMISTRY METHOD 08/09/2024 2:21 PM EST [facility] Blood Venous blood specimen / Unknown Venipuncture / Unknown 08/09/2024 1:50 PM EST 08/09/2024 1:55 PM EST Kayli Love MD LAB BLOOD ORDERABLES Fin al Result Performing Organization Address City/[facility]/ZIP Co de Phone Number [facility] [address] [place] [address], [place] [phone] * Lipase (08/09/2024 1:50 PM EST) [facility] Lipase 63 13 - 75 unit/L LAB CHEMISTRY METHOD 08/09/2024 2:21 PM EST [facility] Blood Venous blood specimen / Unknown Venipuncture / Unknown 08/09/2024 1:50 PM EST 08/09/2024 1:55 PM EST Kayli Love MD LAB BLOOD ORDERABLES Fin al Result [facility] [address] [place] [address], [place] [phone] * (ABNORMAL) Comprehensive metabolic panel (08/09/2024 1:50 PM EST) Sodium 128(L) 133 - 145 mmol/L LAB CHEMISTRY METHOD 08/09/2024 2:21 PM EST [facility] Potassium 3.6 3.5 - 5.5 [...] LAB CHEMISTRY METHOD 08/09/2024 2:21 PM EST [facility] ALT (SGPT) 91(H) 10 - 60 unit/L LAB CHEMISTRY METHOD 08/09/2024 2:21 PM EST [facility] Alkaline Phosphatase 91 42 - 121 unit/L LAB CHEMISTRY METHOD 08/09/2024 2:21 PM EST [facility] Total Protein 7.4 6.0 - 8.0 g/dL LAB CHEMISTRY METHOD 08/09/2024 2:21 PM EST [facility] Albumin 3.7 3.2 - 5.0 g/dL LAB CHEMISTRY METHOD 08/09/2024 2:21 PM [facility] Total Bilirubin 0.5 0.0 - 1.4 mg/dL LAB CHEMISTRY METHOD 08/09/2024 2:21 PM EST [facility] Blood Venous blood specimen / Unknown Venipuncture / Unknown 08/09/2024 1:50 PM EST 08/09/2024 1:55 PM EST us Kayli Love MD LAB BLOOD ORDERABLES Fin al Result [facility] [address] [place] [address], * Troponin I high sensitivity (08/09/2024 1:50 PM EST) High Sensitivity Troponin I 3 <=54 ng/L LAB CHEMISTRY METHOD 08/09/2024 2:34 PM EST [facility] Blood Venous blood specimen / Unknown Venipuncture / Unknown 08/09/2024 1:50 PM EST 08/09/2024 1:55 PM EST Narrative [facility] - 08/09/2024 2:34 PM EST High levels of biotin in samples may falsely decrease hsTroponin values. ??Use caution when interpreting hsTroponin results in patients taking biotin who exhibit renal impairment (eGFR <60) or in patients taking more than 20 mg/day of biotin. Kayli Love MD LAB BLOOD ORDERABLES Fin al Result Performing Organization Address City/[facility]/ZIP Co de Phone Number [facility] [address] [place] [address], [place] [phone] * ECG 12 lead (08/09/2024 1:37 PM EST) Ventricular Rate ECG 83 BPM GEMUSE Atrial Rate 83 BPM GEMUSE P-R Interval 150 ms GEMUSE QRS Duration 96 ms GEMUSE Q-T Interval 364 ms GEMUSE QTc 427 ms GEMUSE P Wave [place] 69 degrees GEMUSE R [place] 58 degrees GEMUSE T [place] 10 degrees GEMUSE ECG Interpretation Normal sinus rhythm Possible Left atrial enlargement Incomplete right bundle branch block Borderline ECG When compared with ECG of 08-OCT-2023 10:16, No significant change was found Confirmed by KENYETTA CULP ([id number]) on 08/10/2024 6:16:21 PM GEMUSE 08/09/2024 1:37 PM EST 08/10/2024 6:16 PM EST Kayli Love MD ECG ORDERABLES Final Re sult Performing Organization Address [facility] Co de Phone Number GEMUSE documented in [...] 07/26 documented in this encounter Care Teams Boat Fueler Relationship Specialty Start Date End Date Yeimi Olivas MD [address] [place] [address] PCP - General Internal Medicine 03/09/20 documented as of this encounter
== END 2024-08-25 09:24 | disposition home or self-care (01) ==
LOC: HO.HMGCX 09:23
PROVIDERS: PCP Internal Medicine; Visit Provider Internal Medicine
DX: M25.512 Pain in left shoulder (principal)
CPT/HCPCS: 73030

== ENCOUNTER → 2024-08-25 10:13 | Outpatient (BNV) | payer BC, SELFPAY | PROVIDERS: PCP Internal Medicine; Visit Provider Radiology Diagnostic Radiology | DX: M25.512 Pain in left shoulder (principal) | CPT/HCPCS: 73030 ==

== ENCOUNTER 2025-03-05 09:28 | Outpatient (AMB) | payer BC, SELFPAY ==
[2025-03-05 09:31] VITALS: BP 128/86; PULSE 69; RESP 18; TEMP 36.7; O2SAT 99; BMI 25.8
--- NOTE | 2025-03-05 09:31 | MHC.PC.OV ---
Vital Signs 03/05/25 09:31 Height 5 ft 2 in Weight 141 lb BMI 25.8 BP 128/86 Blood Pressure Location Lt brachial Position Sitting Respiration 18 Pulse 69 Pulse Source Pulse Oximeter Temp 98.0 F Temp Source Oral Pulse Oximetry (%) 99 Oxygen Delivery Method Room Air Intake Visit Reasons: dizziness, numbness in the back of her head Intake Note: Pt is here today for a sick visit Pt c/o dizziness and abdominal pain and numbness and pain in the back of her head. Pt stated that she had R ear pain a week ago. Allergies No Known Allergies Allergy (Verified 03/05/25 09:31) Medication List - Last Reconciled 03/05/25 by Yeimi Olivas MD amlodipine 2.5 mg PO DAILY estradiol 0.01%(0.1mg/gram) 1 appful vaginal 3XW meclizine 25 mg PO BID PRN omeprazole 20 mg PO DAILY valsartan 160 mg PO BID Tobacco use date assessed: 03/05/25 Fall risk assessment: 1 Fall in past year Last assessed Fall Risk: 03/05/25 Dental Screening Dental Screen Date: 08/01/24 HPI dizziness, numbness in the back of her head HPI Details Pt presents for f/u HTN and hyperlipidemia stable on meds. Patient complains of chronic neck pain stiffness, numbness or tingling sensation on and off radiating to both upper extremities. Patient tried physical therapy without significant improvement. She has been taking [id number] NSAIDs with some relief. Patient tried gabapentin without significant improvement [facility] Medical History (Updated 03/06/25 @ 08:20 by Yeimi Olivas MD) Cervical radiculopathy Abdominal pain Myalgia Chest pain Hyperlipidemia Hand pain Back pain Mammogram normal Constipation GERD (gastroesophageal reflux disease) Vertigo Chronic neck pain Mid-back pain, acute HTN (hypertension) Surgical History History of cholecystectomy H/O colonoscopy History of esophagogastroduodenoscopy (EGD) No pertinent past surgical history Family History Father Cancer Mother Stroke Sister No problems noted. Sister No problems noted. Son No problems noted. Daughter No problems noted. Social History Housing: Apartment Patient Tobacco Use Status: Never used Tobacco e-Cigarette/Vaping Use: Never Used service: No Current occupational status: unemployed Current occupation: rt hand Cognitive needs: No Hearing needs: No Vision needs: No Questionnaire PHQ-9 Over the last 2 weeks, how often have you been bothered by any of the following problems? 1. Little interest or pleasure in doing things: not at all 2. Feeling down, depressed, or hopeless: not at all 3. Trouble falling or staying asleep, or sleeping too much: not at all 4. Feeling tired or having little energy: not at all 5. Poor appetite or overeating: not at all 6. Feeling bad about yourself - or that you are a failure or have let yourself or your family down: not at all 7. Trouble concentrating on things, such as reading the newspaper or watching television: not at all 8. Moving or speaking so slowly that other people could have noticed. Or the opposite - being so fidgety or restless that you have been moving around a lot more than usual: not at all 9. Thoughts that you would be better off or of hurting yourself in some way: not at all Total score: 0 Depression Screening Interpretation: Negative Depression Screening Done: Yes Source: Developed by Drs. Ilia Reece, Kimberly Almodovar, Mack Hdz and colleagues, with an educational odette from [employer]. Thrive Questionnaire Date Thrive assessed: 08/01/24 SHAWN-7 AMB Questionnaire SHAWN-7 Date SHAWN - 7 assessed: 08/01/24 Feeling nervous, anxious, or on edge: 0 = Not at all Not being able to stop or control worryin = Not at all Worrying too much about different things: 0 = Not at all Trouble relaxin = Not at all Being so restless that it is hard to sit still: 0 = Not at all Becoming easily annoyed or irritable: 0 = Not at all Feeling afraid as if something awful might happen: 0 = Not at all Total SHAWN-7 score (0-4 normal; 5-9 mild; 10-14 moderate; 15-21 severe): 0 Source: Developed by Kimberly Dang Kurt Kroenke and colleagues, with an educational odette from [employer]. Review of Systems Const All systems reviewed & are unremarkable except as noted in HPI and below Eyes Reports no additional complaints ENT Reports no additional complaints Card Reports no additional complaints Resp Reports no additional complaints GI Reports no additional complaints Physical exam (Primary Care) Vital Signs: Last Vital Signs Temp 98.0 F 03/05/25 09:31 Pulse 69 03/05/25 09:31 Resp 18 03/05/25 09:31 BP 128/86 03/05/25 09:31 Pulse Ox 99 03/05/25 09:31 Oxygen Delivery Method Room Air 03/05/25 09:31 BMI result Body Mass Index 25.8 Tobacco/Smoking Status: Tobacco use Status Tobacco use date assessed 03/05/25 03/05/25 09:41 Patient Tobacco Use Status Never used Tobacco 03/05/25 09:41 e-Cigarette/Vaping Use Never Used 03/05/25 09:41 PHQ-9: PHQ-9 Score PHQ-9: Total score 0 03/05/25 09:56 Depression Screening Interpretation: Negative Thrive Assessment: Date of Thrive Assessment Date Thrive assessed 08/01/24 03/05/25 09:41 Const General: no acute distress HENMT Head: Yes normal to inspection Face and sinus: Yes normal facial exam Eyes General: appearance normal, both eyes and all related structures Neck Neck: Yes supple Resp Effort & Inspection: normal respiratory effort Auscultation: clear to auscultation bilaterally Cardio Rhythm: regular rhythm Heart sounds: S1 normal heart sound present and S2 normal heart sound present Neuro Other: There is a decreased range of motion paraspinal tenderness in lower cervical region. Motor strength 4 to 5/5 in both upper extremities proximally, hand inside sales trainer is 5/5 bilaterally Coding Level of Care Code Est Pt Level 4 (59893) Diagnoses Cervical radiculopathy M54.12 HTN (hypertension) I10 Hyperlipidemia E78.5 Assessment & Plan Assessment & Plan (1) Cervical radiculopathy: Code(s): M54.12 - Radiculopathy, cervical region Category: Medical Plan: Persistent symptoms of radiculopathy despite physical therapy. Obtain MRI of the C-spine to evaluate for disc herniation (2) HTN (hypertension): Code(s): I10 - Essential (primary) hypertension Category: Medical Plan: Continue medication (3) Hyperlipidemia: Code(s): E78.5 - Hyperlipidemia, unspecified Category: Medical Plan: Continue statin Orders: Orders MR cervical spine wo con 03/05/25 M54.12 - Radiculopathy, cervical region Medications: New pravastatin 40 mg PO DAILY 90 tabs 2RF Refilled estradiol 0.01%(0.1mg/gram) 1 appful vaginal 3XW 42.5 grams 5RF
--- OUTSIDE RECORDS SUMMARY | 2025-03-05 10:59 | XMS_ITS | Clinical Summary ---
Author Organization [facility] Address [address] [place] [id number] Phone Care Team Providers Care Sander Operator Name Role Phone Yeimi Olivas MD Primary Care Provider [phone] Allergies No known active allergies Surgical History Surgery Date Site/Laterality Comments CHOLECYSTECTOMY PROCEDURE: HISTORICAL CHOLECYSTECTOMY COLONOSCOPY 06/24/2019 PROCEDURE: HISTORICAL COLONOSCOPY; COMMENT: repeat 5 years UPPER GASTROINTESTINAL ENDOSCOPY 08/26/2019 PROCEDURE: [place] UPPER GI ENDOSCOPY PERFORMED; COMMENT: negative, biopsy [...] 73 08/10/2024 4:38 AM EST Temperature 36.5 C (97.7 F) 08/10/2024 4:38 AM EST Respiratory Rate 19 08/10/2024 4:38 AM EST [...] Panel) 06/03/2022 Colorectal Cancer Screening: Colonoscopy 06/03/2022 Hepatitis C Screening 06/03/2022 Medicare Annual Wellness Visit 06/03/2022 Osteoporosis Screening (Bone Density Screening) 06/03/2022 Social Influencers of Health Screening 06/03/2022 Falls Risk Assessment 2023 Breast Cancer Screening 03/20/2024 03/20/20 22, 03/16/2021, 03/09/2020, Additional history exists Depression Screening 06/25/2024 COVID-19 Vaccine ( - season) 2025 Influenza Vaccine (#1) 2025 Hypertension/CHF/CAD Annual BMP Blood Test 08/09/2025 08/09/2024 RSV Immunization Adult Patients (1 - 1-dose 75+ series) 2033 HIB [...] age to complete this topic Meningococcal B Vaccine Aged Out No l onger eligible based on patient's age to complete this topic RSV Immunization Patients Under 20 months Aged Out No longer eligible based on patient's age to complete this topic Varicella Vaccines Aged Out No longer eligible based on patient's age to complete this topic Procedures Procedure Name Priority Date/Time Associated Diagnosis Comments COMPREHENSIVE METABOLIC PANEL STAT 08/09/2024 1:50 PM EST SCREENING MAMMOGRAPHY BI 2-VIEW BREAST INC CAD Routine 03/20/2022 8:10 AM EDT Encounter for screening mammogram for malignant neoplasm of breast from Last 3 Months or Most Recently Relevant to Health Maintenance Results * (ABNORMAL) Comprehensive metabolic panel (08/09/2024 1:50 PM EST) Sodium 128(L) 133 - 145 mmol/L LAB CHEMISTRY METHOD 08/09/2024 2:21 PM [facility] Potassium 3.6 3.5 - 5.5 mmol/L LAB CHEMISTRY METHOD 08/09/2024 2:21 PM [facility] Chloride 95(L) 96 - 110 mmol/L LAB CHEMISTRY METHOD 08/09/2024 2:21 PM [facility] CO2 27 21 - 32 mmol/L LAB CHEMISTRY METHOD 08/09/2024 2:21 PM [facility] Anion Gap 6 3 - 11 LAB CHEMISTRY METHOD 08/09/2024 2:21 PM [facility] Glucose 109(H) 70 - 100 mg/dL LAB CHEMISTRY METHOD 08/09/2024 2:21 PM [facility] BUN 8 5 - 25 mg/dL LAB CHEMISTRY METHOD 08/09/2024 2:21 PM [facility] Creatinine 0.77 0.50 - 1.10 mg/dL LAB CHEMISTRY METHOD 08/09/2024 2:21 PM [facility] eGFR 85 >=60 mL/min/1. 73m2 LAB CHEMISTRY METHOD 08/09/2024 2:21 PM [facility] Comment:Calculation based on the Chronic Kidney Disease Epidemiology Collaboration (CKD-EPI) equation refit without adjustment for race. BUN/Creatinine Ratio 10.4 LAB CHEMISTRY METHOD 08/09/2024 2:21 PM [facility] Calcium 8.6 8.5 - 10.5 mg/dL LAB CHEMISTRY METHOD 08/09/2024 2:21 PM [facility] AST (SGOT) 43(H) 10 - 42 unit/L LAB CHEMISTRY METHOD 08/09/2024 2:21 PM [facility] ALT (SGPT) 91(H) 10 - 60 unit/L LAB CHEMISTRY METHOD 08/09/2024 2:21 PM [facility] Alkaline Phosphatase 91 42 - 121 unit/L LAB CHEMISTRY METHOD 08/09/2024 2:21 PM [facility] Total Protein 7.4 6.0 - 8.0 g/dL LAB CHEMISTRY METHOD 08/09/2024 2:21 PM [facility] Albumin 3.7 3.2 - 5.0 g/dL LAB CHEMISTRY METHOD 08/09/2024 2:21 PM [facility] Total Bilirubin 0.5 0.0 - 1.4 mg/dL LAB CHEMISTRY METHOD 08/09/2024 2:21 PM [facility] Blood Venous blood specimen / Unknown Venipuncture / Unknown 08/09/2024 1:50 PM EST 08/09/2024 1:55 PM EST us Kayli Love MD LAB BLOOD ORDERABLES Fin al Result [facility] [address] [place] [address], * SCREENING MAMMOGRAPHY BI 2-VIEW BREAST INC [...] interpreted with the aid of computer-aided detection. Comparison is made with 03/16/2021 and as far back as 02/20/2018. Breast parenchyma is composed of scattered fibroglandular densities. No new suspicious mass, architectural distortion, or suspicious [...] Yeimi Olivas MD IMG XR PROCEDURES Final Resul t from Last 3 Months or Most Recently Relevant to Health Maintenance Insurance MEDICARE [facility] Care Teams Sander Operator Relationship Specialty Start Date End Date Yeimi Olivas MD PCP - General Internal Medicine 03/09/20
== END 2025-03-05 13:56 | disposition home or self-care (01) ==
LOC: HO.HMCC 09:29
PROVIDERS: PCP Internal Medicine; Visit Provider Internal Medicine
DX: M54.12 Radiculopathy, cervical region (principal); I10 Essential (primary) hypertension; E78.5 Hyperlipidemia, unspecified

== ENCOUNTER 2025-03-10 08:10 | Outpatient (REF) | payer BC, SELFPAY ==
--- OUTSIDE RECORDS SUMMARY | 2025-03-10 09:22 | XMS_ITS | Clinical Summary ---
Author Organization [facility] Address [address] [place] [phone] Phone Care Team Providers Care Manager Body Name Role Phone Yeimi Olivas MD Primary Care Provider [phone] Allergies No known active allergies Surgical History Surgery Date Site/Laterality Comments CHOLECYSTECTOMY PROCEDURE: HISTORICAL CHOLECYSTECTOMY COLONOSCOPY 06/24/2019 PROCEDURE: HISTORICAL COLONOSCOPY; COMMENT: repeat 5 years UPPER GASTROINTESTINAL ENDOSCOPY 08/26/2019 PROCEDURE: [place] UPPER GI ENDOSCOPY PERFORMED; COMMENT: negative, biopsy [...] mmol/L LAB CHEMISTRY METHOD 08/09/2024 2:21 PM [facility] Potassium 3.6 3.5 - 5.5 mmol/L LAB CHEMISTRY METHOD 08/09/2024 2:21 PM [facility] Chloride 95(L) 96 - 110 mmol/L LAB CHEMISTRY METHOD 08/09/2024 2:21 PM [facility] CO2 27 21 - 32 mmol/L LAB CHEMISTRY METHOD 08/09/2024 2:21 PM [facility] Anion Gap 6 3 - 11 LAB CHEMISTRY METHOD 08/09/2024 2:21 PM [facility] Glucose 109(H) 70 - 100 mg/dL LAB CHEMISTRY METHOD 08/09/2024 2:21 PM [facility] BUN 8 5 - 25 mg/dL LAB CHEMISTRY METHOD 08/09/2024 2:21 PM [facility] Creatinine 0.77 0.50 - 1.10 mg/dL LAB CHEMISTRY METHOD 08/09/2024 2:21 PM [facility] eGFR 85 >=60 mL/min/1. 73m2 LAB CHEMISTRY METHOD 08/09/2024 2:21 PM [facility] Comment:Calculation based on the Chronic Kidney Disease Epidemiology Collaboration (CKD-EPI) equation refit without adjustment for race. BUN/Creatinine Ratio 10.4 LAB CHEMISTRY METHOD 08/09/2024 2:21 PM [facility] Calcium 8.6 8.5 - 10.5 mg/dL LAB CHEMISTRY METHOD 08/09/2024 2:21 PM [facility] AST (SGOT) 43(H) 10 - 42 unit/L LAB CHEMISTRY METHOD 08/09/2024 2:21 PM [facility] ALT (SGPT) 91(H) 10 - 60 unit/L LAB CHEMISTRY METHOD 08/09/2024 2:21 PM [facility] Alkaline Phosphatase 91 42 - 121 unit/L LAB CHEMISTRY METHOD 08/09/2024 2:21 PM [facility] Total Protein 7.4 6.0 - 8.0 g/dL LAB CHEMISTRY METHOD 08/09/2024 2:21 PM [facility] Albumin 3.7 3.2 - 5.0 g/dL LAB CHEMISTRY METHOD 08/09/2024 2:21 PM [facility] Total Bilirubin 0.5 0.0 - 1.4 mg/dL LAB CHEMISTRY METHOD 08/09/2024 2:21 PM [facility] Blood Venous blood specimen / Unknown Venipuncture / Unknown 08/09/2024 1:50 PM EST 08/09/2024 1:55 PM EST us Kayli Love MD LAB BLOOD ORDERABLES Fin al Result [facility] [address] [place] [address], * SCREENING MAMMOGRAPHY BI 2-VIEW BREAST INC [...] Recently Relevant to Health Maintenance Insurance MEDICARE [facility] Care Teams Manager Body Relationship Specialty Start Date End Date Yeimi Olivas MD PCP - General Internal Medicine 03/09/20
[2025-03-10 10:48] LABS: MANUAL DIFF FLAG NO
[2025-03-10 11:19] LABS: Hematocrit 41.4 % (37.0-47.0); Hemoglobin 13.8 g/dl (12.0-16.0); Imm Gran Abs Auto 0.01 X10*3/uL (0.00-0.03); Imm Gran Pct Auto 0.2 % (0.0-0.4); Lymphocytes Absolute Auto 2.5 X10*3/uL (1.2-4.9); Mean Corpuscular HGB Conc 33.3 g/dl (31.0-35.0); Mean Corpuscular Hemoglobin 29.0 pg (27.0-33.0); Mean Corpuscular Volume 87.0 fL (80.0-98.0); NRBC Abs Auto 0.000 X10*3/uL (0.0-0.012); NRBC Pct Auto 0.0 /100WBC (0.0-0.2); Platelet Count 268 X10*3/uL (160-400); Red Blood Count 4.76 X10*6/uL (4.20-5.50); White Blood Count 5.4 X10*3/uL (4.8-10.8)
[2025-03-10 11:49] LABS: Alanine Aminotransferase 26 U/L (0-31); Albumin Level 4.4 g/dL (3.5-5.0); Alkaline Phosphatase 69 U/L (39-117); Anion Gap 12 (12-20); Aspartate Amino Transferase 27 U/L (5-31); Blood Urea Nitrogen 11 mg/dL (9-16); Calcium 9.5 mg/dL (8.4-10.2); Carbon Dioxide 29 mmol/L (22-29); Chloride 102 mmol/L (96-108); Cholesterol 272 mg/dL (<200); Estimated Glomerular Filt Rate > 60; HDL Cholesterol 50 mg/dL (>40); Potassium 4.6 mmol/L (3.3-5.1); Sodium 138 mmol/L (135-145); Total Protein 7.2 g/dL (6.5-8.0); Triglycerides 148 mg/dL (<150)
== END 2025-03-10 08:11 | disposition home or self-care (01) ==
LOC: HO.HMGCLDS 08:10
PROVIDERS: PCP Internal Medicine; Visit Provider Internal Medicine
DX: I10 Essential (primary) hypertension (principal); E78.5 Hyperlipidemia, unspecified
CPT/HCPCS: 36415; 80053; 80061; 84443; 85025

== ENCOUNTER → 2025-03-28 08:43 | Outpatient (BNV) | payer BC, SELFPAY | PROVIDERS: PCP Internal Medicine; Visit Provider Radiology Vascular & Interventional Radiology | DX: M54.12 Radiculopathy, cervical region (principal); M50.30 Other cervical disc degeneration, unspecified cervical region | CPT/HCPCS: 72141 ==

== ENCOUNTER 2025-03-28 08:49 | Outpatient (REF) | payer BC, SELFPAY ==
--- NOTE | ~2025-03-28 | MR_ITS ---
CLINICAL HISTORY: M54.12 - Radiculopathy, cervical region MR cervical spine without gadolinium Comparison: CR/SR - XR CERVICAL SPINE 2-3 VIEWS - 05/01/22 11:34 EST Findings: There is mild straightening of the normal cervical lordosis. There is multilevel disc desiccation and disc space narrowing most pronounced at C5-C6 and C6-C7. The spinal cord is normal in signal and in caliber. The visualized portions of the posterior fossa are unremarkable. Paravertebral soft tissues are within normal limits. No fracture, acute malalignment or suspicious marrow lesion. Individual levels: C2-C3: Unremarkable. C3-C4: Unremarkable. C4-C5: Unremarkable. C5-C6: Small left eccentric disc osteophyte complex with mild left neural foraminal narrowing. No significant central canal stenosis. C6-C7: Moderate right eccentric disc protrusion with moderate right neural foraminal narrowing. No significant central canal stenosis. C7-T1: No significant central canal stenosis. No significant neural foraminal narrowing. Impression: Degenerative changes most pronounced within the lower cervical spine. This document has been electronically signed by: Chance Rodrigues MD on 03/30/2025 10:34:34
--- OUTSIDE RECORDS SUMMARY | 2025-03-28 08:51 | XMS_ITS | Clinical Summary ---
Author Organization [facility] Address [address] [place] [phone] Phone Care Team Providers Care Healthcare Account Manager Name Role Phone Yeimi Olivas MD Primary Care Provider [phone] Allergies No known active allergies Surgical History Surgery Date Site/Laterality Comments CHOLECYSTECTOMY PROCEDURE: HISTORICAL CHOLECYSTECTOMY COLONOSCOPY 06/24/2019 PROCEDURE: HISTORICAL COLONOSCOPY; COMMENT: repeat 5 years UPPER GASTROINTESTINAL ENDOSCOPY 08/26/2019 PROCEDURE: [place] UPPER GI ENDOSCOPY PERFORMED; COMMENT: negative, biopsy [...] Health Maintenance Due Date Last Done Comments Colorectal Cancer Screening: Colonoscopy 1958 DTaP,Tdap,and Td Vaccines (1 - Tdap) 1977 Pneumococcal Vaccine: 50+ Years (1 of 1 - PCV) 2008 Zoster Vaccines (1 of 2) 2008 Cholesterol Screening (Lipid Panel) 06/03/2022 Hepatitis C Screening 06/03/2022 Medicare Annual [...] mmol/L LAB CHEMISTRY METHOD 08/09/2024 2:21 PM [facility] Potassium 3.6 3.5 - 5.5 mmol/L LAB CHEMISTRY METHOD 08/09/2024 2:21 PM [facility] Chloride 95(L) 96 - 110 mmol/L LAB CHEMISTRY METHOD 08/09/2024 2:21 PM [facility] CO2 27 21 - 32 mmol/L LAB CHEMISTRY METHOD 08/09/2024 2:21 PM [facility] Anion Gap 6 3 - 11 LAB CHEMISTRY METHOD 08/09/2024 2:21 PM [facility] Glucose 109(H) 70 - 100 mg/dL LAB CHEMISTRY METHOD 08/09/2024 2:21 PM [facility] BUN 8 5 - 25 mg/dL LAB CHEMISTRY METHOD 08/09/2024 2:21 PM [facility] Creatinine 0.77 0.50 - 1.10 mg/dL LAB CHEMISTRY METHOD 08/09/2024 2:21 PM [facility] eGFR 85 >=60 mL/min/1. 73m2 LAB CHEMISTRY METHOD 08/09/2024 2:21 PM [facility] Comment:Calculation based on the Chronic Kidney Disease Epidemiology Collaboration (CKD-EPI) equation refit without adjustment for race. BUN/Creatinine Ratio 10.4 LAB CHEMISTRY METHOD 08/09/2024 2:21 PM [facility] Calcium 8.6 8.5 - 10.5 mg/dL LAB CHEMISTRY METHOD 08/09/2024 2:21 PM [facility] AST (SGOT) 43(H) 10 - 42 unit/L LAB CHEMISTRY METHOD 08/09/2024 2:21 PM [facility] ALT (SGPT) 91(H) 10 - 60 unit/L LAB CHEMISTRY METHOD 08/09/2024 2:21 PM [facility] Alkaline Phosphatase 91 42 - 121 unit/L LAB CHEMISTRY METHOD 08/09/2024 2:21 PM [facility] Total Protein 7.4 6.0 - 8.0 g/dL LAB CHEMISTRY METHOD 08/09/2024 2:21 PM [facility] Albumin 3.7 3.2 - 5.0 g/dL LAB CHEMISTRY METHOD 08/09/2024 2:21 PM [facility] Total Bilirubin 0.5 0.0 - 1.4 mg/dL LAB CHEMISTRY METHOD 08/09/2024 2:21 PM [facility] Blood Venous blood specimen / Unknown Venipuncture / Unknown 08/09/2024 1:50 PM EST 08/09/2024 1:55 PM EST us Kayli Love MD LAB BLOOD ORDERABLES Fin al Result [facility] [address] [place] [address], * SCREENING MAMMOGRAPHY BI 2-VIEW BREAST INC [...] Recently Relevant to Health Maintenance Insurance MEDICARE [facility] Care Teams Healthcare Account Manager Relationship Specialty Start Date End Date Yeimi Olivas MD PCP - General Internal Medicine 03/09/20
== END 2025-03-28 08:50 | disposition home or self-care (01) ==
LOC: HO.MRI 08:49
PROVIDERS: PCP Internal Medicine; Visit Provider Internal Medicine
DX: M54.12 Radiculopathy, cervical region (principal)
CPT/HCPCS: 72141

== ENCOUNTER 2025-03-31 07:05 | Emergency (ER) | payer BC, SELFPAY ==
--- NOTE | ~2025-03-31 | CT_ITS ---
EXAMINATION: CT ABDOMEN AND PELVIS WITH CONTRAST CLINICAL INFORMATION: Left lower quadrant abdominal pain. COMPARISON: None available. TECHNIQUE: Multidetector volumetric images were obtained from the superior aspect of the liver through the pubic symphysis following administration 85 mL of Omnipaque 350 intravenous contrast. Sagittal and coronal reformatted images were obtained on the technologist's workstation. Oral contrast: No This CT examination was performed using dose optimization techniques as appropriate, variously including the following: *Automated exposure control *Adjustment of mA and/or kV according to patient size (this includes techniques or standardized protocols for targeted exams where dose is matched to indication/reason for exam; i.e. extremities or head) *Use of iterative reconstruction technique FINDINGS: LUNG BASES: There is linear scarring or atelectasis in the lingula and right middle lobe. Lung bases are otherwise clear. Heart size is normal. There are no effusions. LIVER, GALLBLADDER, AND BILIARY TREE: The liver is normal in size, shape, and attenuation. No focal hepatic lesion or intrahepatic biliary ductal dilatation is present. The gallbladder is surgically absent. Mild prominence of the extrahepatic bile ducts, most likely on the basis of reservoir effect from cholecystectomy. 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 Pancreas otherwise normal. SPLEEN: Unremarkable. ADRENAL GLANDS: Mild left hyperplasia. The right is normal. KIDNEYS AND URETERS: The kidneys are normal in size, shape, and attenuation. No hydronephrosis, hydroureter, or calculi seen. No perinephric stranding. Tiny subcentimeter cyst in the right kidney inferior pole. BLADDER: Unremarkable. GASTROINTESTINAL TRACT: Normal appendix is visualized. Stomach is somewhat decompressed. The duodenum appears normal. The small bowel is nondilated, normal in course and caliber. No wall thickening or inflammation. The colon is normal in course, caliber, and appearance without wall thickening, inflammation, or other abnormality. There is no rectal abnormality present. ABDOMINAL WALL: No significant hernia is appreciated. LYMPH NODES: No abnormal lymphadenopathy is evident. VASCULAR: Unremarkable. PELVIC VISCERA: The uterus and adnexa are unremarkable. OSSEOUS STRUCTURES: There is no suspicious lytic or blastic bone lesion. There are mild to moderate degenerative changes in the spine. There are mild degenerative changes in the hip joints. CT/CT abdomen pelvis w IV con IMPRESSION: 1. There is no acute finding in the abdomen or pelvis. 2. Ancillary findings as discussed in the body of the report. Electronically signed by: Didier Martin MD 03/31/2025 12:56 PM EDT
[2025-03-31 07:11] VITALS: BP 190/86; PULSE 78; RESP 20; TEMP 37; O2SAT 98; BMI 23.5
[2025-03-31 07:36] LABS: MANUAL DIFF FLAG NO
[2025-03-31 07:37] LABS: Hematocrit 38.8 % (37.0-47.0); Hemoglobin 13.8 g/dl (12.0-16.0); Imm Gran Abs Auto 0.02 X10*3/uL (0.00-0.03); Imm Gran Pct Auto 0.3 % (0.0-0.4); Lymphocytes Absolute Auto 2.3 X10*3/uL (1.2-4.9); Mean Corpuscular HGB Conc 35.6 g/dl (31.0-35.0); Mean Corpuscular Hemoglobin 29.2 pg (27.0-33.0); Mean Corpuscular Volume 82.2 fL (80.0-98.0); NRBC Abs Auto 0.000 X10*3/uL (0.0-0.012); NRBC Pct Auto 0.0 /100WBC (0.0-0.2); Platelet Count 264 X10*3/uL (160-400); Red Blood Count 4.72 X10*6/uL (4.20-5.50); White Blood Count 7.2 X10*3/uL (4.8-10.8)
[2025-03-31 07:38] LABS: Appearance Urine Clear; Glucose Urine UA Negative (Negative); PH 6.5 (5.0-9.0); Specific Gravity - Urine 1.020 (1.005-1.025); UMIC TRIGGER UACC YES
[2025-03-31 07:51] LABS: UACC Culture Trigger YES
[2025-03-31 07:57] LABS: Alanine Aminotransferase 21 U/L (0-31); Albumin Level 4.4 g/dL (3.5-5.0); Alkaline Phosphatase 71 U/L (39-117); Anion Gap 16 (12-20); Aspartate Amino Transferase 23 U/L (5-31); Blood Urea Nitrogen 9 mg/dL (9-16); Calcium 9.1 mg/dL (8.4-10.2); Carbon Dioxide 22 mmol/L (22-29); Chloride 92 mmol/L (96-108); Creatinine Clr Calc Pharmacy 74.6; Estimated Glomerular Filt Rate > 60; Lipase 29 U/L (8-78); Potassium 3.6 mmol/L (3.3-5.1); Sodium 126 mmol/L (135-145); Total Protein 7.4 g/dL (6.5-8.0)
--- NOTE | 2025-03-31 10:03 | ED.ABDPAIN ---
HPI - Abdominal Pain General Chief Complaint: Abdominal Pain Stated Complaint: Abd pain Time Seen by Provider: 03/31/25 09:45 Source: patient, family and old records reviewed Mode of arrival: ambulatory Limitations: no limitations History of Present Illness ED Provider: MORIAH CALVILLO narrative: 64 yo female with PMH of hyperthyroidism, HTN - did not take her home meds today, TIA, HLD, GERD not on blood thinners, has hx of cholecystectomy at this time patient c/o LLQ pain and diffuse abdominal pain with loose stools and nausea. No vomiting, no fevers. She denies urinary symptoms. She has not had diverticulitis before. MD elicited complaint: abdominal pain Pertinent past history: none Onset (ago): day(s) (1) Pain Consistency: constant Location: LLQ Severity: moderate Quality: aching Exacerbating factors: eating and movement Relieving factors: nothing Associated symptoms: nausea and diarrhea Related Data Previous Rx's ?Medication ?Instructions ?Recorded meclizine 25 mg tablet 25 mg PO BID PRN dizziness #60 tabs 09/10/23 amlodipine 2.5 mg tablet 2.5 mg PO DAILY #30 tabs 08/18/24 valsartan 160 mg tablet 160 mg PO BID #180 tabs 09/11/24 omeprazole 20 mg capsule,delayed 20 mg PO DAILY #90 caps 01/28/25 release estradiol 0.01% (0.1 mg/gram) 1 appful vaginal 3XW #42.5 grams 03/05/25 vaginal cream pravastatin 40 mg tablet 40 mg PO DAILY #90 tabs 03/05/25 omeprazole 20 mg capsule,delayed 20 mg PO DAILY #60 caps 03/31/25 release sucralfate 100 mg/mL oral 10 ml PO BID 7 days #140 mL 03/31/25 suspension (Carafate) Allergies Allergy/AdvReac Type Severity Reaction Status Date / Time No Known Allergies Allergy Verified 03/31/25 07:14 Review of Systems Review of Systems Constitutional : No Weight loss, No Fever, No Chills ENT/Mouth : No sore throat, No Rhinorrhea Eyes: No Swelling, No Redness Cardiovascular : No Chest Pain, No SOB, NoEdema Respiratory : No Cough, No Sputum, No Wheezing Gastrointestinal : Positive Nausea, no Vomiting, positive Diarrhea, positive abdominal Pain, No Hematochezia, No Melena Genitourinary : No Dysuria, No Urinary Frequency, No Hematuria, No Urgency Musculoskeletal : No joint pain, No Myalgias, No Joint Swelling Skin : No Skin Lesions, No rash Neuro : No Weakness, No Numbness, No Dizziness, No Headache All other systems reviewed and are negative. [facility] Past Medical History Attestation statement: The following information was validated with the patient. Source: old records reviewed Medical History Cervical radiculopathy Abdominal pain Myalgia Chest pain Hyperlipidemia Hand pain Back pain Mammogram normal Constipation GERD (gastroesophageal reflux disease) Vertigo Chronic neck pain Mid-back pain, acute HTN (hypertension) Surgical History History of cholecystectomy H/O colonoscopy History of esophagogastroduodenoscopy (EGD) No pertinent past surgical history Family History Family History Father Cancer Mother Stroke Sister No problems noted. Sister No problems noted. Son No problems noted. Daughter No problems noted. Social History Social History Housing: Apartment Patient Tobacco Use Status: Never used Tobacco Smoked in Last 30 Days: No e-Cigarette/Vaping Use: Never Used Use of substances other than those prescribed or required for medical reasons: No Advance Directives: No Advance Directives Information Provided: Yes service: No Current occupational status: unemployed Current occupation: rt hand Cognitive needs: No Hearing needs: No Vision needs: No Physical Exam ED Vital Signs: Vital Signs - 24 hr 03/31/25 07:11 03/31/25 10:06 03/31/25 10:53 Temperature 98.6 F 98.3 F 98.3 F Pulse Rate 78 73 74 Respiratory Rate 20 15 15 Blood Pressure 190/86 H 184/83 H 173/85 H Pulse Oximetry 98 97 98 Oxygen Delivery Method Room Air Room Air Room Air 03/31/25 11:42 Temperature 98.3 F Pulse Rate 69 Respiratory Rate 15 Blood Pressure 152/73 H Pulse Oximetry 97 Oxygen Delivery Method Room Air BMI result Body Mass Index 23.5 Appearance: Alert. Oriented X3. No acute distress. Eyes: Pupils equal, round and reactive to light. ENT: Pharynx normal. Neck: Normal inspection. Neck supple. CVS: Normal heart rate and rhythm. Pulses normal. Respiratory: No respiratory distress. Breath sounds normal. Abdomen: Soft and moderate ttp in LLQ no rebound Skin: Skin warm and dry. pale skin color. Normal skin turgor. Extremities: No lower extremity edema. Neuro: Oriented X 3. No motor deficit. No sensory deficit. CN2-12 intact Course Course Course Narrative: Na 126 after only 1L of LR up to 134 she is not taking any meds other than her BP medication. She only drinks 75 ounces of water a day she is still having pain but work up is negative Medical Decision Making Medical Decision Making [facility] Narrative: 64 yo female with PMH of hyperthyroidism, HTN - did not take her home meds today, TIA, HLD, GERD not on blood thinners, has hx of cholecystectomy now here with LLQ pain nausea diarhea she has no rebound on exam - at this time will obtain labs, CT scan for renal colic, mass, pancreatitis, diverticular ds. IVF and IV morphine for pain ordered. Differential Diagnosis Differential Diagnoses: The differential diagnosis associated with the presentation includes renal colic, gastritis, pancreatitis, lyte abnormality, diverticular ds Admission/Observation Consideration of admission/observation: Escalation of care including admission/observation considered Na improved No acute findings on CT scan EKG nonischemic trop flat plan to start on PPI and carafate, her GI doctor is aware and will follow up sooner and try to schedule appointment Consult Healthcare Provider Management of the patient was discussed with: Nursing Assistant GI doctor aware. Lab Data [facility] Lab Attestation statement: I reviewed the patient's lab results. 03/31/25 07:29 03/31/25 13:58 Labs: Lab Results 03/31/25 03/31/25 03/31/25 Range/Units 07:29 07:33 13:58 WBC 7.2 (4.8-10.8) X10*3/uL RBC 4.72 (4.20-5.50) X10*6/uL Hgb 13.8 (12.0-16.0) g/dl Hct 38.8 (37.0-47.0) % MCV 82.2 (80.0-98.0) fL MCH 29.2 (27.0-33.0) pg MCHC 35.6 H (31.0-35.0) g/dl RDW 11.9 (11.0-16.0) % Plt Count 264 (160-400) X10*3/uL MPV 9.1 L (9.4-12.3) fL Immature Gran % (Auto) 0.3 (0.0-0.4) % Neut % (Auto) 59.9 (45-73) % Lymph % (Auto) 32.3 (20-40) % [place] % (Auto) 6.7 (2-11) % Eos % (Auto) 0.4 (0-4) % Baso % (Auto) 0.4 (0-2) % Lymph # (Auto) 2.3 (1.2-4.9) X10*3/uL [place] # (Auto) 0.5 (0.1-1.2) X10*3/uL Eos # (Auto) 0.0 (0.0-0.4) X10*3/uL Baso # (Auto) 0.0 (0.0-0.2) X10*3/uL Abs Immat Gran (auto) 0.02 (0.00-0.03) X10*3/uL Absolute Neuts (auto) 4.3 (2.0-8.3) x10*3/uL Absolute Nucleated RBC 0.000 (0.0-0.012) X10*3/uL Nucleated RBC % (auto) 0.0 (0.0-0.2) /100WBC Sodium 126 L 134 L (135-145) mmol/L Potassium 3.6 D (3.3-5.1) mmol/L Chloride 92 L (96-108) mmol/L Carbon Dioxide 22 (22-29) mmol/L Anion Gap 16 (12-20) BUN 9 (9-16) mg/dL Creatinine 0.64 (0.5-1.4) mg/dL Estim Creat Clear Calc 74.6 Estimated GFR > 60 Random Glucose 116 H (60-115) mg/dL Calcium 9.1 (8.4-10.2) mg/dL Total Bilirubin 0.9 (0.0-1.0) mg/dL AST 23 (5-31) U/L ALT 21 (0-31) U/L Alkaline Phosphatase 71 (39-117) U/L Troponin I High Sens 3.6 (<3.5-17.0) ng/L Total Protein 7.4 (6.5-8.0) g/dL Albumin 4.4 (3.5-5.0) g/dL Lipase 29 (8-78) U/L Urine Color Yellow Urine Appearance Clear Urine pH 6.5 (5.0-9.0) Ur Specific [place] 1.020 (1.005-1.025) Urine Protein Negative (Neg-Trace) mg/dL Urine Glucose (UA) Negative (Negative) mg/dL Urine Ketones >=160 (Negative) mg/dL Urine Blood Trace H (Negative) Urine Nitrite Negative (Negative) Ur Leukocyte Esterase Small (1+) H (Negative) Urine RBC 0-2 (0-2) /HPF Urine WBC 0-5 (0-5) /HPF Ur Squamous Epith Cells 0-2 (0-2) /HPF Urine Bacteria None Seen (None Seen) Hyaline Casts 0-2 (0-2) /LPF Independent Interpretation I performed an independent interpretation of an: EKG and CT Scan (no acute cause of pain. ) Interpretation: Rate: 67 Rhythm: NSR [place]: normal Normal P waves. Normal URIEL. RBBB ST T wave : inverted t wave V1, no TERESA qTC: 431 prior studies: no change from prior The study has been interpreted contemporaneously by me. . Radiology Impression Discussion of test interpretation with radiology: I have reviewed the radiologist's reading. Independent Historian Clinical information obtained from an independent historian. History obtained from or confirmed by: Other External Record Review External record reviewed: Outpatient record Prescription Management I considered prescription management with: Other Medications Administered Discontinued Medications Generic Name Dose Route Start Last Admin Trade Name Freq PRN Reason Stop Dose Admin Al Hydroxide/Mg Hydroxide 15 ml 03/31/25 14:17 03/31/25 14:31 Magnesium Hydrox/Alum Hydrox 30 Ml Oral.Susp PO 03/31/25 14:18 15 ml ONCE ONE Administration Lactated Ringer's 1,000 mls @ 999 mls/hr 03/31/25 10:00 03/31/25 11:41 Lr IV 03/31/25 11:00 Infused .Q1H1M ONE Infusion Iohexol 100 ml 03/31/25 12:46 03/31/25 12:47 Iohexol 350 Mg/Ml 100 Ml Infus..Btl IV 03/31/25 12:47 85 ml ONCE ONE Administration Lidocaine HCl 15 ml 03/31/25 14:17 03/31/25 14:31 Lidocaine Hcl Viscous 2 % 15 Ml Solution MUCOUS MEM 03/31/25 14:18 15 ml ONCE ONE Administration Morphine Sulfate 4 mg 03/31/25 10:00 03/31/25 10:11 Morphine Sulfate 4 Mg/Ml Cartridge IVPUSH 03/31/25 10:01 4 mg ONCE ONE Administration Protocol Ondansetron HCl 4 mg 03/31/25 10:00 03/31/25 10:11 Ondansetron Hcl 4 Mg/2 Ml Vial IVPUSH 03/31/25 10:01 4 mg ONCE ONE Administration Discharge Plan Discharge Clinical Impression: Abdominal pain, Acute hyponatremia Patient Disposition: Home, Self-Care Instructions: Hyponatremia (ED), Abdominal Pain (ED) Additional Instructions: blood counts are normal liver, pancreas, kidney function is normal your sodium was initially low but corrected with IV fluids avoid excessive water intake - hold it to 40 ounces daily for the next 5 days - repeat your sodium level with your doctor by Sunday your CT scan is not showing any acute findings at this time. you have a an incidental cyst on the pancreas this is not the cause of your pain you will need an outpatient MRI please contact your doctor about this LIVER, GALLBLADDER, AND BILIARY TREE: The liver is normal in size, shape, and attenuation. No focal hepatic lesion or intrahepatic biliary ductal dilatation is present. The gallbladder is surgically absent. Mild prominence of the extrahepatic bile ducts, most likely on the basis of reservoir effect from cholecystectomy. 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 Pancreas otherwise normal. SPLEEN: Unremarkable. ADRENAL GLANDS: Mild left hyperplasia. The right is normal. KIDNEYS AND URETERS: The kidneys are normal in size, shape, and attenuation. No hydronephrosis, hydroureter, or calculi seen. No perinephric stranding. Tiny subcentimeter cyst in the right kidney inferior pole. BLADDER: Unremarkable. GASTROINTESTINAL TRACT: Normal appendix is visualized. Stomach is somewhat decompressed. The duodenum appears normal. The small bowel is nondilated, normal in course and caliber. No wall thickening or inflammation. The colon is normal in course, caliber, and appearance without wall thickening, inflammation, or other abnormality. There is no rectal abnormality present. ABDOMINAL WALL: No significant hernia is appreciated. LYMPH NODES: No abnormal lymphadenopathy is evident. VASCULAR: Unremarkable. PELVIC VISCERA: The uterus and adnexa are unremarkable. OSSEOUS STRUCTURES: There is no suspicious lytic or blastic bone lesion. There are mild to moderate degenerative changes in the spine. There are mild degenerative changes in the hip joints. CT/CT abdomen pelvis w IV con IMPRESSION: 1. There is no acute finding in the abdomen or pelvis. 2. Ancillary findings as discussed in the body of the report. GI OFFICE WILL CALL YOU TO SCHEDULE SOONER APPOINTMENT. outpatient MRI ordered they will call you to schedule Prescriptions: New omeprazole 20 mg capsule,delayed release(DR/EC) 20 mg PO DAILY Qty: 60 2RF sucralfate [Carafate] 100 mg/mL suspension 10 ml PO BID 7 Days Qty: 140 0RF No Action valsartan 160 mg tablet 160 mg PO BID Qty: 180 3RF omeprazole 20 mg capsule,delayed release(DR/EC) 20 mg PO DAILY Qty: 90 3RF meclizine 25 mg tablet 25 mg PO BID PRN (Reason: dizziness) Qty: 60 0RF amlodipine 2.5 mg tablet 2.5 mg PO DAILY Qty: 30 1RF estradiol 0.01 % (0.1 mg/gram) cream 1 appful vaginal 3XW Qty: 42.5 5RF pravastatin 40 mg tablet 40 mg PO DAILY Qty: 90 2RF Print Language: Luxembourgish
[2025-03-31 10:06] VITALS: BP 184/83; PULSE 73; RESP 15; TEMP 36.8; O2SAT 97
[2025-03-31] MEDS: Lactated Ringers 1,000 ML 999 ML IV (10:10)
--- NOTE | 2025-03-31 10:21 | PC.NURSE ---
a&ox4. vss and up to date aside from being hypertensive. pt denies any chest pain/palpitations - states she did not take her home BP medication today. per MD order, pt able to take home medication. pt then self administered 160mg of valsartan and 2.5mg amlodipine. effectiveness pending. pt presents c/o diffuse abd pain w/ associated nausea and loose stool x yesterday. hx cholecystectomy. 20gIV placed in the right AC - IVF/medication administered per provider order. pt otherwise on RA w/o difficulty - no sob/wob noted. respirations even/unlabored. pending CT to be completed at this time. plan of care ongoing. call zuniga placed within reach.
[2025-03-31 10:53] VITALS: BP 173/85; PULSE 74; RESP 15; TEMP 36.8; O2SAT 98
--- OUTSIDE RECORDS SUMMARY | 2025-03-31 11:31 | XMS_ITS | Clinical Summary ---
Author Organization [facility] Address [address] [place] [id number] Phone Care Team Providers Care Grape Picker Name Role Phone Yeimi Olivas MD Primary Care Provider [phone] Allergies No known active allergies Surgical History Surgery Date Site/Laterality Comments CHOLECYSTECTOMY PROCEDURE: HISTORICAL CHOLECYSTECTOMY COLONOSCOPY 06/24/2019 PROCEDURE: HISTORICAL COLONOSCOPY; COMMENT: repeat 5 years UPPER GASTROINTESTINAL ENDOSCOPY 08/26/2019 PROCEDURE: [place] UPPER GI ENDOSCOPY PERFORMED; COMMENT: negative, biopsy [...] LAB BLOOD ORDERABLES Fin al Result [facility] [address] [place] [address], * SCREENING MAMMOGRAPHY BI 2-VIEW BREAST INC [...] Recently Relevant to Health Maintenance Insurance MEDICARE [facility] Care Teams Grape Picker Relationship Specialty Start Date End Date Yeimi Olivas MD PCP - General Internal Medicine 03/09/20
[2025-03-31 11:42] VITALS: BP 152/73; PULSE 69; RESP 15; TEMP 36.8; O2SAT 97
[2025-03-31] MEDS: iohexoL 350 MG/ML 100 ML INFUS..BTL IV (12:47)
--- NOTE | 2025-03-31 14:10 | ECG_ITS ---
Test Reason : ABD PAIN Blood Pressure : */* mmHG Vent. Rate : 67 BPM Atrial Rate : 67 BPM P-R Int : 166 ms QRS Dur : 96 ms QT Int : 408 ms P-R-T Axes : 30 46 5 degrees QTcB Int : 431 ms Normal sinus rhythm Incomplete right bundle branch block Borderline ECG No previous ECGs available Referred By: Ronna Aparicio Electronically Signed By: LAMAR LUCAS MD
[2025-03-31 14:11] LABS: Sodium 134 mmol/L (135-145)
[2025-03-31] MEDS: Magnesium Hydrox/Alum Hydrox 30 ML ORAL.SUSP 15 ML PO (14:31)
[2025-03-31] MEDS: Lidocaine HCl Viscous 2 % 15 ML SOLUTION MUCOUS MEM (14:31)
[2025-03-31 14:40] LABS: Troponin-I High Sensitivity 3.6 ng/L (<3.5-17.0)
[2025-03-31 15:03] VITALS: BP 150/85; PULSE 67; RESP 15; TEMP 36.7; O2SAT 95
[2025-03-31 15:09] VITALS: BP 150/85; PULSE 67; RESP 15; TEMP 36.7; O2SAT 95
== END 2025-03-31 15:10 | disposition home or self-care (01) ==
PROVIDERS: Emergency Provider Emergency Medicine; PCP Internal Medicine
DX: R10.32 Left lower quadrant pain (principal); E87.1 Hypo-osmolality and hyponatremia; I10 Essential (primary) hypertension; Z86.73 Personal history of transient ischemic attack (TIA), and cerebral infarction without residual deficits; Z90.49 Acquired absence of other specified parts of digestive tract
CPT/HCPCS: 36415; 74177; 80053; 81001; 83690; 84295; 84484; 85025; 87086; 93005; 96361; 96374; 96375; 99285; J2270; J2405; J7120; Q9967

== ENCOUNTER → 2025-03-31 10:00 | Outpatient (BNV) | payer BC, SELFPAY | PROVIDERS: Emergency Provider Emergency Medicine; PCP Internal Medicine; Visit Provider Radiology Diagnostic Radiology | DX: R10.32 Left lower quadrant pain (principal) | CPT/HCPCS: 74177 ==

== ENCOUNTER → 2025-03-31 14:10 | Outpatient (BNV) | payer BC, SELFPAY | PROVIDERS: Emergency Provider Emergency Medicine; PCP Internal Medicine; Visit Provider Internal Medicine Cardiovascular Disease | DX: I45.10 Unspecified right bundle-branch block (principal) | CPT/HCPCS: 93010 ==

== ENCOUNTER 2025-04-09 14:52 | Outpatient (AMB) | payer BC, SELFPAY ==
--- NOTE | 2025-04-09 14:55 | A.OFFVIS_ITS ---
Vital Signs 04/09/25 15:02 Height 5 ft 3 in Weight 128 lb BMI 22.7 BP 144/82 H Blood Pressure Location Rt brachial Position Sitting Pulse 82 Pulse Source Pulse Oximeter Pulse Oximetry (%) 97 Oxygen Delivery Method Room Air Intake Visit Reasons: Abd pain. LYDIA 2023. Urgent per PCP + Dr. Aparicio Intake Note: Est pt for eval of abd pain. LYDIA 2023. CC: C.O. epigastric and RUQ pain persistence despite current PPI therapy. Pt also reporting irregular BMs. Boilermaker Apprentice Required: No Accompanied by: Self / Same As Patient Allergies No Known Allergies Allergy (Verified 04/09/25 14:56) HPI HPI Abd pain. LYDIA 2023. Urgent per PCP + Dr. Aparicio: Details: LAST VISIT: Abdominal pain Constipation Postprandial epigastric pain Postprandial abdominal pain in right upper quadrant Plan Patient reports that she has been taking omeprazole every other day, however she does not feel like it is helping. Patient states that matter of fact she feels worse. States that her burning persists worse when eating. Avoiding different food and keeping track of what she eats. History of cholecystectomy over 20 years ago. However ultrasound report described patient having healthy gallbladder. Call placed to Radiology and clarification made. Addendum was done to the last report by radiologist who read the report. Attached to this chart for clarification. Epigastric pain that radiates to right upper quadrant and patient's back. Patient does report to be bloated. Possible acid reflux versus gas trapping pain. Also possibility of biliary stone causing biliary colic. Patient will be sent for a HIDA scan without the contrast or MRCP. Patient will call insurance to find out how much co-pay for each of the test. Discussed with patient also avoiding dietary triggers. Patient will start to follow FODMAP diet. List of food recommended as well as list of food to avoid given to patient. Patient reports occasional constipation when no bowel movement for 1 or 2 days. Patient was encouraged to increase fluid intake and activity to promote better bowel motility 1st before starting anything to help her move her bowels. She will return in the office in 6 months, sooner on as needed basis. Patient is agreeable to this plan and verbalizes understanding of instructions. She was given the opportunity to ask questions and all questions answered. ? Thank you for allowing me to participate in her care New pantoprazole 20 mg PO DAILY 90 tabs 1RF Refilled famotidine (Pepcid) 20 mg PO BEDTIME 90 tabs 3RF K21.9 Discontinued omeprazole Discontinued Reason: Doctor's Order 20 mg PO DAILY 90 caps 3RF TODAY'S VISIT: Patient is here today for follow-up after recent ED visit. Patient has been evaluated in the ER on March 31 for LLQ pain and postprandial diarrhea. Patient reports severe LLQ pain burning and cramping. Patient also reports acid reflux. Patient reports that she was doing fairly well before was only taking Pepcid as needed. Seen in the ER and given script for omeprazole. Patient reports omeprazole helps but it is not completely relieving the pain. Patient reports postprandial diarrhea. Patient has a history of cholecystectomy over 20 years ago. Patient reports that she is very careful with the food that she eats. Patient usually does not eat anything that is greasy or spicy. Usually makes her home meals. Patient reports occasional dyspepsia without dysphagia or odynophagia. Denies any nausea or vomiting. Patient had no abnormal findings on CT scan, simple looking cyst that was seen previously on MRI in 2023. Patient had no leukocytosis, tender to touch during the exam [facility] Medical History Pancreatic cyst Cervical radiculopathy Abdominal pain Myalgia Chest pain Hyperlipidemia Hand pain Back pain Mammogram normal Constipation GERD (gastroesophageal reflux disease) Vertigo Chronic neck pain Mid-back pain, acute HTN (hypertension) Surgical History History of cholecystectomy H/O colonoscopy History of esophagogastroduodenoscopy (EGD) No pertinent past surgical history Family History Father Cancer Mother Stroke Sister No problems noted. Sister No problems noted. Son No problems noted. Daughter No problems noted. Social History (Reviewed 04/09/25 @ 14:56 by Ranjan Ruvalcaba [facility]) Housing: Apartment Patient Tobacco Use Status: Never used Tobacco e-Cigarette/Vaping Use: Never Used service: No Current occupational status: unemployed Current occupation: rt hand Cognitive needs: No Hearing needs: No Vision needs: No Review of Systems Const Denies weight gain and Denies weight loss ENT Reports no additional complaints, Denies dysphagia and Denies odynophagia Card Reports no additional complaints Resp Reports no additional complaints GI Reports abdominal pain (Epigastric pain), Denies belching, Denies melena, Re ports bloating, Denies change in bowel habits, Denies dysphagia, Denies excessive flatus, Denies dyspepsia, Denies heartburn, Denies diarrhea, Reports loose stools, Denies nausea, Denies odynophagia and Denies vomiting Reports no additional complaints Musc Reports no additional complaints Neuro Reports no additional complaints Psych Reports no additional complaints Endo Reports no additional complaints Physical Exam Vital Signs: Last Vital Signs Pulse 82 04/09/25 15:02 BP 144/82 H 04/09/25 15:02 Pulse Ox 97 04/09/25 15:02 Oxygen Delivery Method Room Air 04/09/25 15:02 BMI result Body Mass Index 22.7 Const General: healthy appearing, no acute distress and well developed Nutritional Appearance: well nourished Orientation/consciousness: patient oriented x3 Resp Effort & Inspection: normal respiratory effort, able to speak in complete sentences, no tracheal deviation and symmetric chest movement Auscultation: clear to auscultation bilaterally Cardio Rate: regular rate GI Inspection: Yes normal to inspection and No distended Palpation (GI): Soft to palpation, not firm, nontender and No hepatosplenomegaly present Auscultation: normal bowel sounds General: Yes no CVA tenderness Back/Spine/Pelvis Back: no CVA tenderness Skin General skin exam: elasticity normal, turgor normal and dry skin Neuro General: patient oriented x3 Psych Appearance: grossly normal Mental Status: mental status grossly normal Results Reviewed Results Reviewed: HIDA SCAN 10/16/2023 MPRESSION: Nonvisualization of the gallbladder consistent with the history of resection 20 years ago. The common bile duct is patent. Liver function appears normal. CT SCAN OF ABDOMEN AND PELVIS 03/31/2025 GASTROINTESTINAL TRACT: Normal appendix is visualized. Stomach is somewhat decompressed. The duodenum appears normal. The small bowel is nondilated, normal in course and caliber. No wall thickening or inflammation. The colon is normal in course, caliber, and appearance without wall thickening, inflammation, or other abnormality. There is no rectal abnormality present. ABDOMINAL WALL: No significant hernia is appreciated. Assessment & Plan Assessment & Plan (1) GERD (gastroesophageal reflux disease): Code(s): K21.9 - Gastro-esophageal reflux disease without esophagitis Category: Medical Qualifiers: Esophagitis presence: esophagitis presence not specified Qualified Code(s): K21.9 - Gastro-esophageal reflux disease without esophagitis (2) Elevated LFTs: Code(s): R79.89 - Other specified abnormal findings of blood chemistry Category: Medical (3) Pancreatic cyst: Code(s): K86.2 - Cyst of pancreas Category: Medical (4) Postprandial diarrhea: Code(s): K52.9 - Noninfective gastroenteritis and colitis, unspecified (5) LLQ abdominal pain: Code(s): R10.32 - Left lower quadrant pain (6) Postprandial epigastric pain: Code(s): R10.13 - Epigastric pain Plan Patient was encouraged to start taking Citrucel daily. Increase fluid intake and activity to promote better bowel motility. Will send patient for H pylori breath test. She can start taking Nexium daily. Will check fecal calprotectin to rule out IBD. Will check vitamin B12, folate, vitamin-D, transglutaminase and thyroid study. Patient will return in 5-6 months for re-evaluation. She is agreeable to this plan and verbalizes understanding of instructions. She was given the opportunity to ask questions and all questions answered. Thank you for allowing me to participate in her care Orders: Orders Calprotectin, Fecal 04/14/25 R15.9 - Full incontinence of feces Vitamin B12 and Folate 04/11/25 R19.7 - Diarrhea, unspecified TSH reflex Free T4 04/11/25 K59.00 - Constipation, unspecified Vitamin D 25-OH (D2 and D3) 04/11/25 E55.9 - Vitamin D deficiency, unspecified Transglutaminase IgA 04/11/25 R10.9 - Unspecified abdominal pain H Pylori Breath Test 04/14/25 K21.9 - Gastro-esophageal reflux disease without esophagitis Medications: New methylcellulose (laxative) (Citrucel) take it with full glass of water 500 mg PO DAILY 90 tabs 2RF K59.00 - Constipation, unspecified methylcellulose (laxative) (Citrucel) take it with full glass of water 500 mg PO DAILY 90 tabs 2RF K59.00 - Constipation, unspecified esomeprazole magnesium (Nexium 24HR) 20 mg PO DAILY 30 tabs 2RF Discontinued omeprazole Discontinued Reason: Doctor's Order 20 mg PO DAILY 60 caps 2RF Coding Level of Care Code Est Pt Level 5 (82824) Complex EM visit Add On G2211 Diagnoses Gastroesophageal reflux disease, unspecified whether esophagitis present K21.9 Esophagitis presence: esophagitis presence not specified Elevated LFTs R79.89 Pancreatic cyst K86.2 Postprandial diarrhea K52.9 LLQ abdominal pain R10.32 Postprandial epigastric pain R10.13 Time Spent (min) 50 Comment 30 minutes spent with patient and additional 20 minutes spent reviewing her records
[2025-04-09 15:02] VITALS: BP 144/82; PULSE 82; O2SAT 97; BMI 22.7
--- OUTSIDE RECORDS SUMMARY | 2025-04-09 18:44 | XMS_ITS | Clinical Summary ---
Author Organization [facility] Address [address] [place] [phone] Phone Care Team Providers Care Exchange Underwriting Consultant Name Role Phone Yeimi Olivas MD Primary Care Provider [phone] Allergies No known active allergies Surgical History Surgery Date Site/Laterality Comments CHOLECYSTECTOMY PROCEDURE: HISTORICAL CHOLECYSTECTOMY COLONOSCOPY 06/24/2019 PROCEDURE: HISTORICAL COLONOSCOPY; COMMENT: repeat 5 years UPPER GASTROINTESTINAL ENDOSCOPY 08/26/2019 PROCEDURE: [place] UPPER GI ENDOSCOPY PERFORMED; COMMENT: negative, biopsy [...] mmol/L LAB CHEMISTRY METHOD 08/09/2024 2:21 PM [facility] Potassium 3.6 3.5 - 5.5 mmol/L LAB CHEMISTRY METHOD 08/09/2024 2:21 PM [facility] Chloride 95(L) 96 - 110 mmol/L LAB CHEMISTRY METHOD 08/09/2024 2:21 PM [facility] CO2 27 21 - 32 mmol/L LAB CHEMISTRY METHOD 08/09/2024 2:21 PM [facility] Anion Gap 6 3 - 11 LAB CHEMISTRY METHOD 08/09/2024 2:21 PM [facility] Glucose 109(H) 70 - 100 mg/dL LAB CHEMISTRY METHOD 08/09/2024 2:21 PM [facility] BUN 8 5 - 25 mg/dL LAB CHEMISTRY METHOD 08/09/2024 2:21 PM [facility] Creatinine 0.77 0.50 - 1.10 mg/dL LAB CHEMISTRY METHOD 08/09/2024 2:21 PM [facility] eGFR 85 >=60 mL/min/1. 73m2 LAB CHEMISTRY METHOD 08/09/2024 2:21 PM [facility] Comment:Calculation based on the Chronic Kidney Disease Epidemiology Collaboration (CKD-EPI) equation refit without adjustment for race. BUN/Creatinine Ratio 10.4 LAB CHEMISTRY METHOD 08/09/2024 2:21 PM [facility] Calcium 8.6 8.5 - 10.5 mg/dL LAB CHEMISTRY METHOD 08/09/2024 2:21 PM [facility] AST (SGOT) 43(H) 10 - 42 unit/L LAB CHEMISTRY METHOD 08/09/2024 2:21 PM [facility] ALT (SGPT) 91(H) 10 - 60 unit/L LAB CHEMISTRY METHOD 08/09/2024 2:21 PM [facility] Alkaline Phosphatase 91 42 - 121 unit/L LAB CHEMISTRY METHOD 08/09/2024 2:21 PM [facility] Total Protein 7.4 6.0 - 8.0 g/dL LAB CHEMISTRY METHOD 08/09/2024 2:21 PM [facility] Albumin 3.7 3.2 - 5.0 g/dL LAB CHEMISTRY METHOD 08/09/2024 2:21 PM [facility] Total Bilirubin 0.5 0.0 - 1.4 mg/dL LAB CHEMISTRY METHOD 08/09/2024 2:21 PM [facility] Blood Venous blood specimen / Unknown Venipuncture / Unknown 08/09/2024 1:50 PM EST 08/09/2024 1:55 PM EST us Kayli Love MD LAB BLOOD ORDERABLES Fin al Result [facility] [address] [place] [address], * SCREENING MAMMOGRAPHY BI 2-VIEW BREAST INC [...] Recently Relevant to Health Maintenance Insurance MEDICARE [facility] Care Teams Exchange Underwriting Consultant Relationship Specialty Start Date End Date Yeimi Olivas MD PCP - General Internal Medicine 03/09/20
== END 2025-04-09 15:52 | disposition home or self-care (01) ==
LOC: HO.HGI 14:53
PROVIDERS: PCP Internal Medicine; Visit Provider Nurse Practitioner Family
DX: K21.9 Gastro-esophageal reflux disease without esophagitis (principal); R79.89 Other specified abnormal findings of blood chemistry; K86.2 Cyst of pancreas; K52.9 Noninfective gastroenteritis and colitis, unspecified; R10.32 Left lower quadrant pain; R10.13 Epigastric pain
CPT/HCPCS: 99215

== ENCOUNTER 2025-04-11 08:00 | Outpatient (REF) | payer BC, SELFPAY ==
--- OUTSIDE RECORDS SUMMARY | 2025-04-11 08:02 | XMS_ITS | Clinical Summary ---
Author Organization [facility] Address [address] [place] [phone] Phone Care Team Providers Care Acid Wash Operator Name Role Phone Yeimi Olivas MD Primary Care Provider [phone] Allergies No known active allergies Surgical History Surgery Date Site/Laterality Comments CHOLECYSTECTOMY PROCEDURE: HISTORICAL CHOLECYSTECTOMY COLONOSCOPY 06/24/2019 PROCEDURE: HISTORICAL COLONOSCOPY; COMMENT: repeat 5 years UPPER GASTROINTESTINAL ENDOSCOPY 08/26/2019 PROCEDURE: [place] UPPER GI ENDOSCOPY PERFORMED; COMMENT: negative, biopsy [...] 08/09/2024 2:21 PM [facility] Potassium 3.6 3.5 - [...] [facility] Comment:Calculation based on the Chronic Kidney Disease Epidemiology Collaboration (CKD-EPI) equation refit without adjustment for race. BUN/Creatinine Ratio 10.4 LAB CHEMISTRY METHOD 08/09/2024 2:21 PM [facility] Calcium 8.6 8.5 - 10.5 mg/dL LAB CHEMISTRY METHOD 08/09/2024 2:21 PM [facility] AST (SGOT) 43(H) 10 - 42 unit/L LAB CHEMISTRY METHOD 08/09/2024 2:21 PM [facility] ALT (SGPT) 91(H) 10 - 60 unit/L LAB CHEMISTRY METHOD 08/09/2024 2:21 PM [facility] Alkaline Phosphatase 91 42 - 121 unit/L LAB CHEMISTRY METHOD 08/09/2024 2:21 PM [facility] Total Protein 7.4 6.0 - 8.0 g/dL LAB CHEMISTRY METHOD 08/09/2024 2:21 PM [facility] Albumin 3.7 3.2 - 5.0 g/dL LAB CHEMISTRY METHOD 08/09/2024 2:21 PM [facility] Total Bilirubin 0.5 0.0 - 1.4 mg/dL LAB CHEMISTRY METHOD 08/09/2024 2:21 PM [facility] Blood Venous blood specimen / Unknown Venipuncture / Unknown 08/09/2024 1:50 PM EST 08/09/2024 1:55 PM EST us Kayli Love MD LAB BLOOD ORDERABLES Fin al Result [facility] [address] [place] [address], * SCREENING MAMMOGRAPHY BI 2-VIEW BREAST INC [...] Recently Relevant to Health Maintenance Insurance MEDICARE [facility] Care Teams Acid Wash Operator Relationship Specialty Start Date End Date Yeimi Olivas MD PCP - General Internal Medicine 03/09/20
[2025-04-11 12:22] LABS: Folate 14.4 ng/mL (> or = 4.0); Vitamin B12 980 pg/mL (200-900)
[2025-04-16 15:32] LABS: Vitamin D 25-OH, D2 <4 ng/mL; Vitamin D 25-OH, D3 69 ng/mL; Vitamin D 25-OH, Total 69 ng/mL (30-100)
== END 2025-04-11 08:01 | disposition home or self-care (01) ==
LOC: HO.HMGCLDS 08:00
PROVIDERS: PCP Internal Medicine; Visit Provider Nurse Practitioner Family
DX: E55.9 Vitamin D deficiency, unspecified (principal); R19.7 Diarrhea, unspecified; K59.00 Constipation, unspecified; R10.9 Unspecified abdominal pain
CPT/HCPCS: 36415; 82306; 82607; 82746; 84443; 86364

== ENCOUNTER → 2025-04-13 08:35 | Outpatient (BNV) | payer BC, SELFPAY | PROVIDERS: PCP Internal Medicine; Visit Provider Radiology Diagnostic Radiology | DX: K86.2 Cyst of pancreas (principal) | CPT/HCPCS: 74183 ==

== ENCOUNTER 2025-04-13 08:38 | Outpatient (REF) | payer BC, SELFPAY ==
--- NOTE | ~2025-04-13 | MR_ITS ---
EXAMINATION: MR ABDOMEN WITHOUT THEN WITH IV CONTRAST HISTORY: K86.2 - Cyst of pancreas COMPARISON: Correlation is made with a CT of the abdomen with contrast dated 03/31/2025. TECHNIQUE: Axial in and out of phase T1-weighted gradient echo, axial diffusion weighted, and axial and coronal HASTE T2 with fat saturation images were obtained through the abdomen. Subsequently, fat suppressed axial and coronal T1-weighted images were obtained after the intravenous administration of 6 mL Gadavist. FINDINGS: Liver: There is no loss of signal intensity in the liver on opposed phase imaging to suggest steatosis. There is no enhancing liver mass. The hepatic and portal veins are patent. There is no intrahepatic biliary dilatation. Gallbladder/biliary tree: The patient is status post cholecystectomy. The common bile duct is normal in caliber. No intraluminal filling defects are identified to suggest choledocholithiasis. Spleen: The spleen is unremarkable. Pancreas: Again seen is an 8 mm cyst in the pancreatic tail. There is no definite communication with the pancreatic duct or associated contrast enhancement. There is no enhancing pancreatic mass. The pancreatic duct is normal in caliber. Adrenals: The adrenal glands are unremarkable. Kidneys: The kidneys are unremarkable. There is no hydronephrosis. Lymph nodes: There is no retroperitoneal lymphadenopathy in the upper abdomen. Fluid: There is no ascites in the upper abdomen. Visualized bowel: The visualized small and large bowel loops are unremarkable in appearance. Visualized bones: The visualized bones demonstrate normal marrow signal intensity. MR/MR abdomen wo/w con IMPRESSION: 8 mm cyst in the pancreatic tail. Follow-up is recommended. Electronically signed by: Ilia Muñoz MD 04/13/2025 09:52 AM EDT
== END 2025-04-13 08:39 | disposition home or self-care (01) ==
LOC: HO.MRI 08:38
PROVIDERS: PCP Internal Medicine; Visit Provider Internal Medicine
DX: K86.2 Cyst of pancreas (principal)
CPT/HCPCS: 74183; A9585

== ENCOUNTER 2025-04-14 08:00 | Outpatient (REF) | payer BC, SELFPAY ==
--- OUTSIDE RECORDS SUMMARY | 2025-04-14 09:48 | XMS_ITS | Clinical Summary ---
Author Organization [facility] Address [address] [place] [phone] Phone Care Team Providers Care Supervisor Securities Vault Name Role Phone Yeimi Olivas MD Primary Care Provider [phone] Allergies No known active allergies Surgical History [...] [facility] Comment:Calculation based on the Chronic [...] al Result [facility] [address] [place] [address], * SCREENING MAMMOGRAPHY BI 2-VIEW BREAST INC [...] [facility] Care Teams Supervisor Securities Vault Relationship Specialty Start Date End Date Yeimi Olivas MD PCP - General Internal Medicine 03/09/20
[2025-04-23 03:49] LABS: Calprotectin, Fecal 15 mcg/g
== END 2025-04-14 08:01 | disposition home or self-care (01) ==
LOC: HO.HMGCLNP 08:00
PROVIDERS: Nurse Practitioner Family; PCP Internal Medicine; Visit Provider Nurse Practitioner Family
DX: R15.9 Full incontinence of feces (principal); K21.9 Gastro-esophageal reflux disease without esophagitis
CPT/HCPCS: 83993; 87338

== ENCOUNTER 2025-04-20 08:00 | Outpatient (REF) | payer BC, SELFPAY ==
--- OUTSIDE RECORDS SUMMARY | 2025-04-20 09:49 | XMS_ITS | Clinical Summary ---
Author Organization [facility] Address [address] [place] [phone] Phone Care Team Providers Care Director Call Center Sales Name Role Phone Yeimi Olivas MD Primary Care Provider [phone] Allergies No known active allergies Surgical History Surgery Date Site/Laterality Comments CHOLECYSTECTOMY PROCEDURE: HISTORICAL CHOLECYSTECTOMY COLONOSCOPY 06/24/2019 PROCEDURE: HISTORICAL COLONOSCOPY; COMMENT: repeat 5 years UPPER GASTROINTESTINAL ENDOSCOPY 08/26/2019 PROCEDURE: [place] UPPER GI ENDOSCOPY PERFORMED; COMMENT: negative, biopsy [...] MD LAB BLOOD ORDERABLES Fin al Result [facility] [address] [place] [address], * SCREENING MAMMOGRAPHY BI 2-VIEW BREAST INC [...] Recently Relevant to Health Maintenance Insurance MEDICARE [facility] Care Teams Director Call Center Sales Relationship Specialty Start Date End Date Yeimi Olivas MD PCP - General Internal Medicine 03/09/20
[2025-04-25 19:38] LABS: Calprotectin, Fecal 6 mcg/g
== END 2025-04-20 08:01 | disposition home or self-care (01) ==
LOC: HO.HMGCLNP 08:00
PROVIDERS: PCP Internal Medicine; Visit Provider Nurse Practitioner Family
DX: R15.9 Full incontinence of feces (principal); K21.9 Gastro-esophageal reflux disease without esophagitis
CPT/HCPCS: 83993; 87338

== ENCOUNTER 2025-04-23 08:28 | Outpatient (AMB) | payer BC, SELFPAY ==
--- NOTE | 2025-04-23 08:42 | AM.OFFVISNUR ---
Intake Visit Reasons: HOLD PPI. HP Breath Test Intake Note: Pt presents for H Pylori BT. Protocols reviewed with pt and confirmed to be followed. Pt advised of instructions for the test and began testing at 0840. Testing was concluded at 0855. No questions or additional concerns per pt at the end of testing. Advised pt that we will contact them with results when they are obtained. Heel Seat Filler Required: No Accompanied by: Self / Same As Patient Allergies No Known Allergies Allergy (Verified 04/09/25 14:56) Assessment & Plan Assessment & Plan (1) GERD (gastroesophageal reflux disease): Code(s): K21.9 - Gastro-esophageal reflux disease without esophagitis Category: Medical Qualifiers: Esophagitis presence: esophagitis presence not specified Qualified Code(s): K21.9 - Gastro-esophageal reflux disease without esophagitis (2) Oral phase dysphagia: Code(s): R13.11 - Dysphagia, oral phase Category: Medical (3) Abdominal pain: Code(s): R10.9 - Unspecified abdominal pain Category: Medical Coding Level of Care Code Established Pt Procedure Only Patient Type Established Diagnoses Gastroesophageal reflux disease, unspecified whether esophagitis present K21.9 Esophagitis presence: esophagitis presence not specified Oral phase dysphagia R13.11 Abdominal pain R10.9
--- OUTSIDE RECORDS SUMMARY | 2025-04-23 09:06 | XMS_ITS | Clinical Summary ---
Author Organization [facility] Address [address] [place] [phone] Phone Care Team Providers Care Blocking Machine Operator Name Role Phone Yeimi Olivas MD Primary Care Provider [phone] Allergies No known active allergies Surgical History Surgery Date Site/Laterality Comments CHOLECYSTECTOMY PROCEDURE: HISTORICAL CHOLECYSTECTOMY COLONOSCOPY 06/24/2019 PROCEDURE: HISTORICAL COLONOSCOPY; COMMENT: repeat 5 years UPPER GASTROINTESTINAL ENDOSCOPY 08/26/2019 PROCEDURE: [place] UPPER GI ENDOSCOPY PERFORMED; COMMENT: negative, biopsy [...] MD LAB BLOOD ORDERABLES Fin al Result [facility] [address] [place] [address], * SCREENING MAMMOGRAPHY BI 2-VIEW BREAST INC [...] Recently Relevant to Health Maintenance Insurance MEDICARE [facility] Care Teams Blocking Machine Operator Relationship Specialty Start Date End Date Yeimi Olivas MD PCP - General Internal Medicine 03/09/20
== END 2025-04-23 09:02 | disposition home or self-care (01) ==
LOC: HO.HGI 08:28
PROVIDERS: PCP Internal Medicine; Visit Provider Nurse Practitioner Family
DX: K21.9 Gastro-esophageal reflux disease without esophagitis (principal); R13.11 Dysphagia, oral phase; R10.9 Unspecified abdominal pain

== ENCOUNTER 2025-04-23 08:28 | Outpatient (REF) | payer BC, SELFPAY ==
--- OUTSIDE RECORDS SUMMARY | 2025-04-23 17:51 | XMS_ITS | Clinical Summary ---
Author Organization [facility] Address [address] [place] [phone] Phone Care Team Providers Care Tail Ripper Name Role Phone Yeimi Olivas MD Primary Care Provider [phone] Allergies No known active allergies Surgical History Surgery Date Site/Laterality Comments CHOLECYSTECTOMY PROCEDURE: HISTORICAL CHOLECYSTECTOMY COLONOSCOPY 06/24/2019 PROCEDURE: HISTORICAL COLONOSCOPY; COMMENT: repeat 5 years UPPER GASTROINTESTINAL ENDOSCOPY 08/26/2019 PROCEDURE: [place] UPPER GI ENDOSCOPY PERFORMED; COMMENT: negative, biopsy [...] mmol/L LAB CHEMISTRY METHOD 08/09/2024 2:21 PM [facility] Potassium 3.6 3.5 - 5.5 mmol/L LAB CHEMISTRY METHOD 08/09/2024 2:21 PM [facility] Chloride 95(L) 96 - 110 mmol/L LAB CHEMISTRY METHOD 08/09/2024 2:21 PM [facility] CO2 27 21 - 32 mmol/L LAB CHEMISTRY METHOD 08/09/2024 2:21 PM [facility] Anion Gap 6 3 - 11 LAB CHEMISTRY METHOD 08/09/2024 2:21 PM [facility] Glucose 109(H) 70 - 100 mg/dL LAB CHEMISTRY METHOD 08/09/2024 2:21 PM [facility] BUN 8 5 - 25 mg/dL LAB CHEMISTRY METHOD 08/09/2024 2:21 PM [facility] Creatinine 0.77 0.50 - 1.10 mg/dL LAB CHEMISTRY METHOD 08/09/2024 2:21 PM [facility] eGFR 85 >=60 mL/min/1. 73m2 LAB CHEMISTRY METHOD 08/09/2024 2:21 PM [facility] Comment:Calculation based on the Chronic Kidney Disease Epidemiology Collaboration (CKD-EPI) equation refit without adjustment for race. BUN/Creatinine Ratio 10.4 LAB CHEMISTRY METHOD 08/09/2024 2:21 PM [facility] Calcium 8.6 8.5 - 10.5 mg/dL LAB CHEMISTRY METHOD 08/09/2024 2:21 PM [facility] AST (SGOT) 43(H) 10 - 42 unit/L LAB CHEMISTRY METHOD 08/09/2024 2:21 PM [facility] ALT (SGPT) 91(H) 10 - 60 unit/L LAB CHEMISTRY METHOD 08/09/2024 2:21 PM [facility] Alkaline Phosphatase 91 42 - 121 unit/L LAB CHEMISTRY METHOD 08/09/2024 2:21 PM [facility] Total Protein 7.4 6.0 - 8.0 g/dL LAB CHEMISTRY METHOD 08/09/2024 2:21 PM [facility] Albumin 3.7 3.2 - 5.0 g/dL LAB CHEMISTRY METHOD 08/09/2024 2:21 PM [facility] Total Bilirubin 0.5 0.0 - 1.4 mg/dL LAB CHEMISTRY METHOD 08/09/2024 2:21 PM [facility] Blood Venous blood specimen / Unknown Venipuncture / Unknown 08/09/2024 1:50 PM EST 08/09/2024 1:55 PM EST us Kayli Love MD LAB BLOOD ORDERABLES Fin al Result [facility] [address] [place] [address], * SCREENING MAMMOGRAPHY BI 2-VIEW BREAST INC [...] Recently Relevant to Health Maintenance Insurance MEDICARE [facility] Care Teams Tail Ripper Relationship Specialty Start Date End Date Yeimi Olivas MD PCP - General Internal Medicine 03/09/20
== END 2025-04-23 08:29 | disposition home or self-care (01) ==
LOC: HO.LNP 08:28
PROVIDERS: PCP Internal Medicine; Visit Provider Nurse Practitioner Family
DX: K21.9 Gastro-esophageal reflux disease without esophagitis (principal)
CPT/HCPCS: 83013; 99211